=== PATIENT | female | born 1965 | race African-American/Black ===

== ENCOUNTER 2020-05-13 10:37 | Emergency (ER) | payer OTHER, SELFPAY ==
[2020-05-13 10:59] VITALS: BP 148/86; PULSE 87; RESP 18; TEMP 36.9; O2SAT 100
--- NOTE | 2020-05-13 11:06 | ED.DENTAL ---
HPI - Dental/Oral General Chief complaint: Dental/Oral Stated complaint: toothache Source: patient and RN notes reviewed Mode of arrival: ambulatory Limitations: no limitations History of Present Illness HPI Narrative: 54-year-old female with history of stem cell transplant presents with concern for left lower dental pain. Reports she was seen at the dentist yesterday and told she needs a root canal, was given referral. Reports she did not have x-rays done at the dentist yesterday. Reports she was not given an antibiotic at the dentist. She denies facial swelling, headache, foul taste in her mouth. Denies fever or general malaise. MD Complaint: tooth pain Teeth map: 1. Dental pain Related Data Home Medications Medication Instructions Recorded Confirmed albuterol sulfate INHALATION 05/13/20 atorvastatin 05/13/20 docusate sodium [DOK] PO 05/13/20 duloxetine mg PO 05/13/20 ergocalciferol (vitamin D2) 05/13/20 fluticasone propionate INTRANASAL 05/13/20 furosemide 05/13/20 gabapentin 05/13/20 hydralazine 05/13/20 hydrochlorothiazide 05/13/20 lenalidomide [Revlimid] mg PO 05/13/20 losartan 05/13/20 metformin mg 05/13/20 morphine 05/13/20 morphine PO 05/13/20 morphine [MS Contin] PO 05/13/20 omeprazole 05/13/20 ondansetron HCl 05/13/20 prochlorperazine maleate 05/13/20 valacyclovir 05/13/20 varenicline [Chantix Starting ea 05/13/20 Month Box] Allergies Allergy/AdvReac Type Severity Reaction Status Date / Time No Known Allergies Allergy Unverified 10/20/18 13:54 Review of Systems Review of Systems: Narrative: CONSTITUTIONAL: Denies malaise, chills, sweats, or fever. EYES: Denies visual changes, redness, or discharge. ENT: Denies rhinorrhea, congestion, sinus pain, otalgia or sore throat. Reports left lower dental pain CARDIOVASCULAR: Denies chest pain, palpitations, or edema. RESPIRATORY: Denies cough or dyspnea. GASTROINTESTINAL: Denies abdominal pain, nausea, vomiting SKIN: Denies facial redness, swelling MUSCULOSKELETAL: Denies myalgia. NEUROLOGIC: Denies numbness, weakness, or headache. All systems reviewed & are unremarkable except as noted in HPI and below PMFSH Comments At time of signature, agree with nursing past medical, surgical, social and family history. There is no relevant family history pertinent to the presenting complaint Exam Narrative: Exam Narrative: GENERAL: Well-appearing, well-nourished, and in no acute distress. HEAD: Normocephalic, atraumatic. EYES: PERRLA, conjunctivae clear ENT: Nares clear. Mucous membranes moist. Oropharynx without erythema or lesions. Multiple caries, including teeth numbers 18 and 19, no facial swelling noted NECK: Supple. No lymphadenopathy. No jugular venous distension, thyromegaly, or carotid bruits. Carotids were easily palpable bilaterally. CHEST: No respiratory distress. Clear to auscultation. Speaks in full sentences. HEART: Regular rate and rhythm. SKIN: Warm, dry, no rash. NEURO: Alert and oriented x3. PSYCH: Normal mood and affect Course Course Emergency Course: Patient is aware of diagnosis, understands and agrees to treatment plan. Anticipatory guidance given. Patient agrees to follow-up as directed and is aware of reasons to seek care at the emergency department. Portions of this record may have been created with voice recognition software Vital Signs Vital signs: Vital Signs Temperature 98.5 F 05/13/20 10:59 Pulse Rate 87 05/13/20 10:59 Respiratory Rate 18 05/13/20 10:59 Blood Pressure 148/86 H 05/13/20 10:59 Pulse Oximetry 100 05/13/20 10:59 Temperature 98.5 F 05/13/20 10:59 Pulse Rate 87 05/13/20 10:59 Respiratory Rate 18 05/13/20 10:59 Blood Pressure 148/86 H 05/13/20 10:59 Pulse Oximetry 100 05/13/20 10:59 Reviewed. Patient has been instructed to follow up with her primary care provider within the next week regarding her elevated blood pressure today.
== END 2020-05-13 11:20 | disposition home or self-care (01) ==
PROVIDERS: Emergency Provider Nurse Practitioner
DX: K08.89 Other specified disorders of teeth and supporting structures (principal); I10 Essential (primary) hypertension; E78.00 Pure hypercholesterolemia, unspecified; E11.9 Type 2 diabetes mellitus without complications; J44.9 Chronic obstructive pulmonary disease, unspecified; Z79.84 Long term (current) use of oral hypoglycemic drugs
CPT/HCPCS: 99213; G0463

== ENCOUNTER 2021-04-25 14:00 | Outpatient (RCR) | payer OTHER, SELFPAY | END 2021-04-25 23:59 | disposition home or self-care (01) | LOC: ANHAUDIO 14:00 | DX: Z46.1 Encounter for fitting and adjustment of hearing aid (principal) | CPT/HCPCS: 99199; V5241; V5261 ==

== ENCOUNTER 2021-04-25 15:11 | Outpatient (CLI) | payer OTHER, SELFPAY ==
--- NOTE | ~2021-04-25 | MR_ITS ---
EXAMINATION: MR hip RT wo/w con DATE: 04/25/2021 17:06 INDICATION: Multiple myeloma relapse presenting with acute right hip pain. TECHNIQUE: Magnetic resonance imaging (MRI) of the without and with 15 mL Multihance hip was perform ed without intravenous contrast. Sequences included full-field axial PD-weighted FS FSE, T1-weighted FSE and T1-weighted FS FSE , coronal of the pelvis with PD-weighted FS FSE, T2-weighted FSE and T1-we ighted FSE, small field of view of the right hip with axial PD-weighted FS FSE, sagittal PD-weighted FS FSE, coronal T2-weighted FS FSE and coronal PD weighted FS FSE. Additional radial T1-weighted FGR oriented orthogonal to the acetabular rim were obtained for evaluation of the labrum. Postcontrast l arge field of view of the pelvis T1-weighted FS FSE and small [id number] coronal T2-weighted FS FS E and T1-weighted FS FSE were also obtained. COMPARISON: CT dated 06/25/2019 FINDINGS: Bones/labrum/cartilage: Alignment is normal. No fracture or avascular necrosis. Peripheral ring of increased T1 signal consi stent with fatty marrow replacement at the site of a subtle prior lytic lesions in the right iliac wi ng, anterior left iliac spine and left posterior iliac spine. At the latter there is an approximately 9 x 3 mm region of increased T2 signal and enhancement within the lesion. No other bone lesions iden tified. Likely chronic labral degeneration with prominent marginal osteophytes replacing the normal l abral tissue along the superolateral to posterior rim of the right acetabulum which can be seen datin g back to the earlier CT. Assessment of the articular cartilage is limited on a smaller field of view images due to poor [id number] likely related to coil positioning and patient body habitus. Ther e does not however appear to be significant change in the degree of mild nonuniform joint space narro wing seen on the prior CT consistent with mild osteoarthritis at the right hip. Fluid: Symmetric physiologic amount of fluid within both hip joints. No bursitis or other abnormal fluid col lections. Soft tissues: Normal and symmetric muscle bulk and signal in the pelvis and visualized proximal thighs. The iliopso as, gluteal and proximal hamstring tendons are normal. Couple nabothian cysts at the cervix measuring up to 11 mm . Limited evaluation of visceral organs of the pelvis is otherwise unremarkable. No pat hologically enlarged pelvic/inguinal lymphadenopathy. IMPRESSION: 1. No right hip joint effusion, acute osseous abnormality or other etiology identified for reported a cute onset severe right hip pain. 2. Likely involution of the multiple previously seen lytic bone lesions consistent with given history of multiple myeloma which have been replaced by T1 hyperintense fatty marrow. There is a single 9 x 3 mm region of increased T2 signal and enhancement within one of the lesions at the left posterior il iac spine which could represent either minimal residual/recurrent disease or residual vascular cavity . No other enhancing lesions identified. 3. Mild osteoarthritis at the right hip with chronic degeneration of portion of the labrum which have been replaced with prominent acetabular marginal osteophytes. Reviewed, dictated and finalized at location A. IMPRESSION: 1. No right hip joint effusion, acute osseous abnormality or other etiology andrade ntified for reported acute onset severe right hip pain. 2. Likely involution of the multiple previously seen lytic bone lesions consist ent with given history of multiple myeloma which have been replaced by T1 hyper intense fatty marrow. There is a single 9 x 3 mm region of increased T2 signal and enhancement within one of the lesions at the left posterior iliac spine whi ch could represent eithe
[2021-04-25 15:58] LABS: Estimated Glomerular Filt Rate > 60
== END 2021-04-25 15:12 | disposition home or self-care (01) ==
LOC: ANHIMG 15:12
PROVIDERS: Visit Provider Internal Medicine Medical Oncology
DX: C90.02 Multiple myeloma in relapse (principal); M16.11 Unilateral primary osteoarthritis, right hip
CPT/HCPCS: 73723; A9577

== ENCOUNTER 2021-10-31 11:48 | Emergency (ER) | payer OTHER, SELFPAY ==
[2021-10-31] VITALS (36 sets, daily range): BP systolic 140–221; BP diastolic 67–116; PULSE 72–92; RESP 13–26; TEMP 36.7–36.8; O2SAT 95–100
--- NOTE | ~2021-10-31 | CT_ITS ---
EXAMINATION: CT brain wo con EXAM DATE: 10/31/2021 15:14 INDICATION: Headache. Hypertension. TECHNIQUE: Spiral CT of the head was performed without contrast. Axial, coronal and sagittal images were reviewed. The dose-length product (DLP) for this examination was 605.33 mGy-cm. The exposure w as tailored according to patient size, and iterative reconstruction (ASIR) was used as additional dos e reduction technique. Comparison is made to prior examination from 06/25/2019. FINDINGS: There is no acute intraparenchymal hemorrhage. No evidence of intraparenchymal brain mass lesion. No evidence of acute infarction. There is no mass effect or midline shift. The ventricles are normal in size. There are no extra-axial collections. There are no acute calvarial fractures. T he orbits are unremarkable. Soft tissue is unremarkable. Right-sided otomastoiditis fusion. Please exclude otomastoiditis clinically given history provided. T his was aerated on prior scan 2018. IMPRESSION: 1. No acute intracranial findings. 2. Right otomastoiditis opacity, clinical correlation for effusion versus otomastoiditis. Reviewed, dictated and finalized at location A. CHECKER IMPRESSION: 1. No acute intracranial findings. 2. Right otomastoiditis opacity, clinical correlation for effusion versus otom astoiditis.
--- NOTE | 2021-10-31 12:05 | PC.NURSE ---
Charge nurse aware of pts blood pressure and states no EKG is needed.
--- NOTE | 2021-10-31 14:42 | PC.NURSE ---
Charge nurse made aware of pts blood pressure.
--- NOTE | 2021-10-31 15:01 | ECG_ITS ---
Measurements Intervals [place] Rate: 84 P: 64 MA: 161 QRS: 34 QRSD: 93 T: 19 QT: 349 QTc: 415 Interpretive Statements SINUS RHYTHM POSSIBLE LEFT ATRIAL ENLARGEMENT BORDERLINE ECG Electronically Signed On 10-31-2021 20:10:47 [employer] by Pelon Bautista D.O.
--- NOTE | 2021-10-31 15:01 | ED.RECABL ---
HPI - Recheck/Abnormal Lab/Rx General Chief Complaint: Recheck/Abnormal Lab/Rx <Zehra Dia MD - Last Filed: 10/31/21 17:16> Stated Complaint: High BP,BARCENAS <Zehra Dia MD - Last Filed: 10/31/21 17:16> Time Seen by Provider: 10/31/21 15:01 <Zehra Dia MD - Last Filed: 10/31/21 17:16> Source: patient <Zehra Dia MD - Last Filed: 10/31/21 17:16> Mode of arrival: ambulatory <Zehra Dia MD - Last Filed: 10/31/21 17:16> Limitations: no limitations <Zehra Dia MD - Last Filed: 10/31/21 17:16> History of Present Illness HPI narrative: Patient is a 56-year-old female with a history of multiple myeloma in remission, hypertension, hyperlipidemia, arthritis, diabetes, depression, presenting for evaluation of headache pain. Patient states that she has been without her blood pressure medication over the past 4 to 5 days because the pharmacy has not had it. Patient reports headache pain that is consistent with blood pressure headache that she has had in the past. She denies any thunderclap sensation. She reports gradual onset over the past 4 days while she has been without her medications. She denies vision changes, nausea or vomiting. No neck pain. No fever, chills, chest pain or shortness of breath. No focal weakness or numbness. Patient also reports that she has chronic pain and is requesting pain medication for her pain. <Zehra Dia MD - Last Filed: 10/31/21 17:16> Related Data Home Medications: Home Medications Medication Instructions Recorded Confirmed albuterol sulfate INHALATION 05/13/20 atorvastatin 05/13/20 docusate sodium [DOK] PO 05/13/20 duloxetine mg PO 05/13/20 ergocalciferol (vitamin D2) 05/13/20 fluticasone propionate INTRANASAL 05/13/20 furosemide 05/13/20 gabapentin 05/13/20 hydralazine 05/13/20 hydrochlorothiazide 05/13/20 lenalidomide [Revlimid] mg PO 05/13/20 losartan 05/13/20 metformin mg 05/13/20 morphine 05/13/20 morphine PO 05/13/20 morphine [MS Contin] PO 05/13/20 omeprazole 05/13/20 ondansetron HCl 05/13/20 prochlorperazine maleate 05/13/20 valacyclovir 05/13/20 varenicline [Chantix Starting ea 05/13/20 Month Box] <Zehra Dia MD - Last Filed: 10/31/21 17:16> Allergies/Adverse Reactions: Allergies Allergy/AdvReac Type Severity Reaction Status Date / Time No Known Allergies Allergy Verified 10/31/21 15:27 <Zehra Dia MD - Last Filed: 10/31/21 17:16> Review of Systems Review of Systems: CONSTITUTIONAL: Denies fever, chills, or sweats. EYES: Denies visual changes, redness, or discharge. ENT: Denies rhinorrhea, congestion, sore throat, or otalgia. 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 GASTROINTESTINAL: Denies abdominal pain, nausea, vomiting, or diarrhea. GENITOURINARY: Denies dysuria or hematuria. SKIN: Denies rash or itching. MUSCULOSKELETAL: Denies back pain, joint pain, or myalgia. NEUROLOGIC: Reports headache without numbness, or weakness. <Zehra Dia MD - Last Filed: 10/31/21 17:16> [facility] Social History Social History: Social History (Updated 10/31/21 @ 15:53 by Zehra Dia MD) Smoking status: Current every day smoker Tobacco type: cigarettes Alcohol intake: never Substance use type: marijuana Gender identity (if verbalized by the patient): Female <Zehra Dia MD - Last Filed: 10/31/21 17:16> Exam Narrative: GENERAL: Awake, alert, conversant HEAD: Normocephalic, atraumatic. EYES: 2+ PERRLA and EOMI. ENT: Nares clear, no rhinorrhea or epistaxis. Mucous membranes moist. 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 States they are monitoring it. NECK: Supple. CHEST: No respiratory distress, breathing even and non labored HEART: Regular rate, sinus rhythm ABDOMEN:Non dist
--- NOTE | 2021-10-31 15:06 | PC.NURSE ---
Pt off floor to radiology
--- NOTE | 2021-10-31 15:58 | PC.NURSE ---
Called pharmacy, [facility] not communicating medications at this time. Pharmacist to re-enter orders
--- NOTE | 2021-10-31 16:06 | PC.NURSE ---
[facility] still not pulling meds through, pharmacist states IT is aware. Will send medications to ER at this time.
[2021-10-31] MEDS: diphenhydrAMINE HCl CAP 25 MG CAPSULE PO (16:45)
[2021-10-31] MEDS: hydroCHLOROthiazide 25 MG TABLET PO (16:45)
[2021-10-31] MEDS: ACETAMINOPHEN 500 MG TABLET 1000 MG PO (16:46)
[2021-10-31] MEDS: LOSARTAN POTASSIUM 100 MG TABLET PO (16:46)
[2021-10-31] MEDS: KETOROLAC (*BKC) 60 MG/2 ML VIAL 30 MG IM (16:47)
[2021-10-31 16:56] LABS: Add Urine Microscopic? YES; Appearance Urine Cloudy (Clear); Bacteria Urine Trace /hpf; Bilirubin Urine Negative (Negative); Blood Urine 1+ (Negative); Color Urine Yellow (Yellow); Glucose Urine UA 1+ mg/dL (Negative); Ketones Urine Negative (Negative); Leukocyte Esterase Ur Negative LEU/UL (Negative); Mucus Urine Rare /lpf; Nitrate Urine Negative (Negative); Protein Urine 1+ mg/dL (Negative); Specific Grav Ur 1.013 (1.001-1.035); Squamous Epithelial Cell Urine Moderate /hpf (Few); Urobilinogen Urine Negative mg/dL (<2.0); WBC Urine 0-3 /hpf
--- NOTE | 2021-10-31 17:08 | PC.NURSE ---
Dr vasquez aware of BP. OK to start with patient's PO home medications and see response, hold off on IV BP medications at this time.
[2021-10-31 17:19] LABS: Basophils Percent Auto 0.4 % (0.2-1.2); Eosinophils Absolute Auto 0.2 K/mm3 (0-0.3); Eosinophils Percent Auto 1.9 % (0-4.4); Hematocrit 43.1 % (37.0-47.0); Immature Granulocyte Absolute 0.02 K/mm3 (0.00-0.031); Immature Granulocyte Percent A 0.2 % (0-0.5); Lymphocytes Absolute Auto 2.15 K/mm3 (0.9-3.2); Lymphocytes Percent Auto 25.6 % (18.3-44.2); Mean Corpuscular HGB Conc 32.5 g/dl (32-36); Mean Corpuscular Hemoglobin 27.6 pg (26-34); Mean Platelet Volume 10.6 fl (7.4-10.4); Monocytes Absolute Auto 0.7 K/mm3 (0.1-0.6); Monocytes Percent Auto 8.7 % (2.6-8.5); Neutrophils Absolute Auto 5.3 K/mm3 (1.3-6.7); Neutrophils Percent Auto 63.2 % (45.5-73.1); Platelet Count Result 144 k/mm3 (150-375); Red Blood Count 5.07 M/mm3 (4.2-5.4); Red Cell Distribution Width 13.5 % (11.5-14.5); White Blood Count 8.4 K/mm3 (4.5-10.0)
[2021-10-31 17:30] LABS: Alanine Aminotransferase 17 U/L (4-35); Albumin Level 4.3 g/dL (3.5-5.1); Alkaline Phosphatase 92 U/L (38-126); Anion Gap 6 mmol/L (8-16); Aspartate Amino Transferase 21 U/L (14-36); Bilirubin,Total 0.3 mg/dL (0.2-1.3); Blood Urea Nitrogen 9 mg/dL (7-17); Calcium 9.6 mg/dL (8.4-10.2); Carbon Dioxide 28 mmol/L (22-30); Chloride 102 mmol/L (98-107); Estimated CRCL calculation 95 ml/min; Estimated Glomerular Filt Rate > 60; Glucose 178 mg/dL (65-110); Potassium 3.5 mmol/L (3.4-5.0); Sodium 136 mmol/L (137-145)
[2021-10-31 17:42] LABS: Troponin I < 0.012 ng/mL (0.000-0.034)
[2021-10-31] MEDS: hydrALAZINE HCL 20 MG/ML VIAL 10 MG IV PUSH (19:15)
--- NOTE | 2021-10-31 19:18 | PC.NURSE ---
MD aware of BP. Ok to administer hydralazine at this time.
== END 2021-10-31 20:30 | disposition home or self-care (01) ==
PROVIDERS: Emergency Medicine; Emergency Provider Emergency Medicine
DX: I16.9 Hypertensive crisis, unspecified (principal); R51.9 Headache, unspecified; C90.01 Multiple myeloma in remission; I10 Essential (primary) hypertension; E78.5 Hyperlipidemia, unspecified; E11.9 Type 2 diabetes mellitus without complications; M19.90 Unspecified osteoarthritis, unspecified site; Z79.84 Long term (current) use of oral hypoglycemic drugs; F17.210 Nicotine dependence, cigarettes, uncomplicated; H70.91 Unspecified mastoiditis, right ear; R94.31 Abnormal electrocardiogram [ECG] [EKG]
CPT/HCPCS: 36415; 70450; 80053; 81001; 84484; 85025; 93005; 96372; 96374; 99284; A9270; J0360; J1885

== ENCOUNTER 2024-05-07 11:54 | Emergency (ER) | payer OTHER, SELFPAY ==
--- NOTE | 2024-05-07 12:01 | ED.DENTAL ---
HPI - Dental/Oral General Chief complaint: Dental/Oral Stated complaint: Tooth Infection Time Seen by Provider: 05/07/24 12:17 Source: patient Mode of arrival: ambulatory Limitations: no limitations History of Present Illness HPI Narrative: 58-year-old female presents with concern for left upper tooth pain for 1 week. She reports she has been taking aspirin without relief. She reports cheek swelling. She reports she does not have a dentist. She denies fever or trouble swallowing MD Complaint: tooth pain Related Data Home Medications Medication Instructions Recorded Confirmed albuterol sulfate 90 mcg/actuation 2 puff inhalation QID PRN SOB 05/13/20 05/07/24 aerosol inhaler atorvastatin 20 mg tablet 20 mg PO DAILY 05/13/20 05/07/24 duloxetine 30 mg capsule,delayed 30 mg PO DAILY 05/13/20 05/07/24 release ergocalciferol (vitamin D2) 1,250 1,250 mcg PO WEEKLY 05/13/20 05/07/24 mcg (50,000 unit) capsule fluticasone propionate 50 2 spray intranasal DAILY 05/13/20 05/07/24 mcg/actuation nasal spray,suspension furosemide 40 mg tablet 40 mg PO DAILY 05/13/20 05/07/24 gabapentin 300 mg capsule 300 mg PO TID 05/13/20 05/07/24 hydralazine 50 mg tablet 50 mg PO DAILY 05/13/20 05/07/24 hydrochlorothiazide 25 mg tablet 25 mg PO DAILY 05/13/20 05/07/24 lenalidomide 25 mg capsule 25 mg PO DAILY 05/13/20 05/07/24 (Revlimid) losartan 100 mg tablet 100 mg PO DAILY 05/13/20 05/07/24 metformin 500 mg tablet 500 mg PO BID 05/13/20 05/07/24 morphine 30 mg tablet,extended 30 mg PO DAILY 05/13/20 05/07/24 release omeprazole 40 mg capsule,delayed 40 mg PO DAILY 05/13/20 05/07/24 release ondansetron HCl 4 mg tablet 4 mg PO QID PRN Nausea And Vomiting 05/13/20 05/07/24 prochlorperazine maleate 10 mg 10 mg PO DAILY 05/13/20 05/07/24 tablet valacyclovir 500 mg tablet 500 mg PO DAILY 05/13/20 05/07/24 Allergies Allergy/AdvReac Type Severity Reaction Status Date / Time No Known Allergies Allergy Verified 05/07/24 12:01 Review of Systems Review of Systems: CONSTITUTIONAL: Denies malaise, chills, sweats, or fever. EYES: Denies visual changes ENT: Denies rhinorrhea, congestion, sinus pain, otalgia or sore throat. Reports left upper dental pain CARDIOVASCULAR: Denies chest pain, palpitations RESPIRATORY: Denies cough or dyspnea. SKIN: Denies rash or itching. MUSCULOSKELETAL: Denies myalgia. NEUROLOGIC: Denies numbness, weakness, or headache. All systems reviewed & are unremarkable except as noted in HPI and below PMFSH Social History Social History (System 01/25/22 @ 14:12 by Lencho Currie) Smoking status: Current every day smoker Tobacco type: cigarettes Alcohol intake: never Substance use type: marijuana Gender identity (if verbalized by the patient): Female Comments At time of signature, agree with nursing past medical, surgical, social and family history. There is no relevant family history pertinent to the presenting complaint Exam Narrative: GENERAL: Well-appearing, well-nourished, and in no acute distress. HEAD: Normocephalic, atraumatic. EYES: PERRLA, sclera clear ENT: Nares clear, turbinates pink, no rhinorrhea or epistaxis. Mucous membranes moist. TM pearly perez with sharp light reflex bilaterally; no tragal tenderness. Oropharynx without erythema or lesions. Tonsils not enlarged and without exudate. Missing teeth, broken teeth, caries NECK: Supple. No lymphadenopathy. CHEST: No respiratory distress. Speaks in full sentences. HEART: Regular rate and rhythm. SKIN: Warm, dry, no visible rash. NEURO: Alert and oriented x3. PSYCH: Normal mood and affect Course Course Emergency Course: Patient is aware of diagnosis, understands and agrees to treatment plan. Anticipatory guidance given. Patient agrees to follow-up as directed and is aware of reasons to seek care at the emergency department. Portions of this record may have been created with voice recognition software Level of
[2024-05-07 12:05] VITALS: BP 154/91; PULSE 91; RESP 20; TEMP 37.2; O2SAT 98
[2024-05-07 12:08] VITALS: BP 154/91; PULSE 91; RESP 20; TEMP 37.2; O2SAT 98
== END 2024-05-07 12:30 | disposition home or self-care (01) ==
PROVIDERS: Emergency Provider Nurse Practitioner
DX: K08.89 Other specified disorders of teeth and supporting structures (principal); F17.210 Nicotine dependence, cigarettes, uncomplicated; F12.90 Cannabis use, unspecified, uncomplicated
CPT/HCPCS: 99213; G0463

== ENCOUNTER 2024-08-17 10:45 | Emergency (ER) | payer OTHER, SELFPAY ==
--- NOTE | ~2024-08-17 | XR_ITS ---
EXAMINATION: [id number] DATE: 08/17/2024 11:25 INDICATION: Left knee pain TECHNIQUE: AP and lateral views of the left knee were obtained. COMPARISON: None. FINDINGS: Alignment is normal. No fracture. Tricompartmental osteoarthritis at the left knee with moderate join t space narrowing in the medial and patellofemoral compartments and moderate size marginal ossified s mall 3 compartments. There are small central subchondral osteophytes at the medial compartment. No le ft knee joint effusion. Mild subcutaneous edema about the knee. IMPRESSION: 1. No left knee joint effusion or acute osseous abnormality. 2. Tricompartmental osteoarthritis with at least moderate severity in the medial and patellofemoral c ompartments although severity of joint space measuring can be underestimated on nonweightbearing imag ing. Reviewed, dictated and finalized at location B. IMPRESSION: 1. No left knee joint effusion or acute osseous abnormality. 2. Tricompartmental osteoarthritis with at least moderate severity in the media l and patellofemoral compartments although severity of joint space measuring ca n be underestimated on nonweightbearing imaging.
[2024-08-17 10:53] VITALS: BP 152/89; PULSE 80; RESP 16; TEMP 37.1; O2SAT 98
--- NOTE | 2024-08-17 11:12 | ED.EXTPRO ---
HPI - Extremity Problem General Chief complaint: Extremity Problem,Nontraumatic Stated complaint: Left Knee Pain Time Seen by Provider: 08/17/24 11:00 Source: patient Mode of arrival: ambulatory Limitations: no limitations History of Present Illness HPI Narrative: Maria E is a 59-year-old female patient presenting to the clinic today with complaints of left knee pain that started this morning when she awoke. States no known injury. Is having pain anteriorly posterior with pain rating down her leg. History of multiple myeloma. She is concerned that she may have gout. Related Data Home Medications Medication Instructions Recorded Confirmed albuterol sulfate 90 mcg/actuation 2 puff inhalation QID PRN SOB 05/13/20 08/17/24 aerosol inhaler atorvastatin 20 mg tablet 20 mg PO DAILY 05/13/20 08/17/24 duloxetine 30 mg capsule,delayed 30 mg PO DAILY 05/13/20 08/17/24 release ergocalciferol (vitamin D2) 1,250 1,250 mcg PO WEEKLY 05/13/20 08/17/24 mcg (50,000 unit) capsule fluticasone propionate 50 2 spray intranasal DAILY 05/13/20 08/17/24 mcg/actuation nasal spray,suspension furosemide 40 mg tablet 40 mg PO DAILY 05/13/20 08/17/24 gabapentin 300 mg capsule 300 mg PO TID 05/13/20 08/17/24 hydralazine 50 mg tablet 50 mg PO DAILY 05/13/20 08/17/24 hydrochlorothiazide 25 mg tablet 25 mg PO DAILY 05/13/20 08/17/24 lenalidomide 25 mg capsule 25 mg PO DAILY 05/13/20 08/17/24 (Revlimid) losartan 100 mg tablet 100 mg PO DAILY 05/13/20 08/17/24 metformin 500 mg tablet 500 mg PO BID 05/13/20 08/17/24 morphine 30 mg tablet,extended 30 mg PO DAILY 05/13/20 08/17/24 release omeprazole 40 mg capsule,delayed 40 mg PO DAILY 05/13/20 08/17/24 release ondansetron HCl 4 mg tablet 4 mg PO QID PRN Nausea And Vomiting 05/13/20 08/17/24 prochlorperazine maleate 10 mg 10 mg PO DAILY 05/13/20 08/17/24 tablet valacyclovir 500 mg tablet 500 mg PO DAILY 05/13/20 08/17/24 Allergies Allergy/AdvReac Type Severity Reaction Status Date / Time No Known Allergies Allergy Verified 08/17/24 10:55 Review of Systems Review of Systems: Pertinent positives per HPI. Patient denies any fever, chills, rash, headache, visual changes, dizziness, cough, runny nose, sore throat, shortness of breath, chest pain, palpitations, nausea, vomiting, diarrhea, constipation, abdominal pain, or any urinary issues. PMFSH Social History Social History Smoking status: Current every day smoker Tobacco type: cigarettes Alcohol intake: never Substance use type: marijuana Gender identity (if verbalized by the patient): Female Comments At the time of my signature, I reviewed and agree with the nursing past medical, surgical, social, and family history. There is no relevant family history pertinent to the patient complaint. Exam Narrative: General: Well-developed, well nourished, in no apparent distress Head: Normocephalic, atraumatic. Cardio: Regular rate and rhythm, s1 and s2 normal, no murmur appreciated. Resp: Clear to auscultation bilaterally, no rhonchi, rales, wheezing or rubs. Musculoskeletal: No deformity, tender to palpation over the anterior and posterior knee with pain radiating down her leg, grossly normal range of motion, muscle strength strong and equal, peripheral pulse strong, no edema, no cyanosis, normal gait and station Course Course Emergency Course: Portions of this record may have been created with voice recognition software. Level of Care: Express Care Visit Vital Signs Vital signs: Vital Signs Temperature 37.1 C 08/17/24 10:53 Pulse Rate 80 08/17/24 10:53 Respiratory Rate 16 08/17/24 10:53 Blood Pressure 152/89 H 08/17/24 10:53 Pulse Oximetry 98 08/17/24 10:53 Oxygen Delivery Room Air 08/17/24 10:53 Temperature 37.1 C 08/17/24 10:53 Pulse Rate 80 08/17/24 10:53 Respiratory Rate 16 08/17/24 10:53 Blood Pressur
== END 2024-08-17 11:44 | disposition home or self-care (01) ==
PROVIDERS: Emergency Provider Nurse Practitioner Family
DX: M17.12 Unilateral primary osteoarthritis, left knee (principal); F17.210 Nicotine dependence, cigarettes, uncomplicated; F12.90 Cannabis use, unspecified, uncomplicated; C90.01 Multiple myeloma in remission; I11.0 Hypertensive heart disease with heart failure; I50.9 Heart failure, unspecified; E78.00 Pure hypercholesterolemia, unspecified; J44.9 Chronic obstructive pulmonary disease, unspecified; K21.9 Gastro-esophageal reflux disease without esophagitis; E11.9 Type 2 diabetes mellitus without complications; Z79.84 Long term (current) use of oral hypoglycemic drugs
CPT/HCPCS: 73560; 99213; G0463

== ENCOUNTER 2025-04-19 18:12 | Emergency (ER) | payer OTHER, SELFPAY ==
--- NOTE | 2025-04-19 18:27 | ED_ITS ---
HPI - Recheck/Abnormal Lab/Rx General Chief Complaint: Unspecified Stated Complaint: Want to check blood pressure Time Seen by Provider: 04/19/25 18:28 Source: patient Mode of arrival: ambulatory Limitations: no limitations History of Present Illness HPI narrative: Maria E is a 59-year-old female patient presenting to the clinic today with complaints of blood pressure. She is requesting her blood pressure to be checked in the clinic today. She is reporting some dizziness and headache. Went to her PCP today and was prescribed a new blood pressure medication however she was not able to pick it up yet at this time. Denies any chest pain or shortness of breath. Denies any visual changes. Related Data Home Medications ?Medication ?Instructions ?Recorded ?Confirmed ?Last Taken ?Type albuterol sulfate 90 mcg/actuation 2 puff inhalation QID PRN SOB 05/13/20 08/17/24 Unknown History aerosol inhaler atorvastatin 20 mg tablet 20 mg PO DAILY 05/13/20 08/17/24 Unknown History duloxetine 30 mg capsule,delayed 30 mg PO DAILY 05/13/20 08/17/24 Unknown History release ergocalciferol (vitamin D2) 1,250 1,250 mcg PO WEEKLY 05/13/20 08/17/24 Unknown History mcg (50,000 unit) capsule fluticasone propionate 50 2 spray intranasal DAILY 05/13/20 08/17/24 Unknown History mcg/actuation nasal spray,suspension furosemide 40 mg tablet 40 mg PO DAILY 05/13/20 08/17/24 Unknown History gabapentin 300 mg capsule 300 mg PO TID 05/13/20 08/17/24 Unknown History hydralazine 50 mg tablet 50 mg PO DAILY 05/13/20 08/17/24 Unknown History hydrochlorothiazide 25 mg tablet 25 mg PO DAILY 05/13/20 08/17/24 Unknown History lenalidomide 25 mg capsule 25 mg PO DAILY 05/13/20 08/17/24 Unknown History (Revlimid) losartan 100 mg tablet 100 mg PO DAILY 05/13/20 08/17/24 Unknown History metformin 500 mg tablet 500 mg PO BID 05/13/20 08/17/24 Unknown History morphine 30 mg tablet,extended 30 mg PO DAILY 05/13/20 08/17/24 Unknown History release omeprazole 40 mg capsule,delayed 40 mg PO DAILY 05/13/20 08/17/24 Unknown History release ondansetron HCl 4 mg tablet 4 mg PO QID PRN Nausea And Vomiting 05/13/20 08/17/24 Unknown History prochlorperazine maleate 10 mg 10 mg PO DAILY 05/13/20 08/17/24 Unknown History tablet valacyclovir 500 mg tablet 500 mg PO DAILY 05/13/20 08/17/24 Unknown History Allergies Allergy/AdvReac Type Severity Reaction Status Date / Time No Known Allergies Allergy Verified 04/19/25 19:08 Review of Systems Review of Systems: Pertinent positives per HPI. Patient denies any fever, chills, rash, visual changes, dizziness, cough, shortness of breath, chest pain, palpitations, nausea, vomiting, diarrhea, constipation, abdominal pain, or any urinary issues. [facility] Social History Social History Smoking status: Current every day smoker Tobacco type: cigarettes Alcohol intake: never Substance use type: marijuana Gender identity (if verbalized by the patient): Female Comments At the time of my signature, I reviewed and agree with the nursing past medical, surgical, social, and family history. There is no relevant family history pertinent to the patient complaint. Exam Narrative: General: Well-developed, morbidly obese, in no apparent distress Head: Normocephalic, atraumatic. Cardio: Regular rate and rhythm, s1 and s2 normal, no murmur appreciated. Resp: Clear to auscultation bilaterally, no rhonchi, rales, wheezing or rubs. Extremities: No deformity, no edema, no cyanosis, capillary refill less than 2 seconds, peripheral pulses palpable and strong. Integumentary: [place], warm, and dry, intact without lesion, no rashes. Course Course Emergency Course: Portions of this record may have been created with voice recognition software. Level of Care: Express Care Visit Vital Signs Vital signs: Vital Signs Temperature 37.4 C 04/19/25 18:36 Pulse Rate 119 H 04/19/25 18:36 Respiratory Rate 18 04/19/25 18:36 Blood Pressure 175/113 H 04/19/25 18:36 Pulse Oximetry 95 04/19/25 18:36 Oxygen Delivery Room Air 04/19/25 18:36 Temperature 37.4 C 04/19/25 18:36 Pulse Rate 119 H 04/19/25 18:36 Respiratory Rate 18 04/19/25 18:36 Blood Pressure 180/120 H 04/19/25 19:00 Pulse Oximetry 95 04/19/25 18:36 Oxygen Delivery Room Air 04/19/25 18:36 Vital signs reviewed Transfer Transfered to: [facility] Transportation: Other (Private car) Transfer rationale: Hypertension urgency/UTI Accepting physician: Dr. Suarez Transfer comments: Report was given to Ally charge nurse. Patient declined EMS MDM - Recheck/Abnormal Lab/Rx MDM Narrative Medical decision making narrative: At the time of visit patient is resting comfortably on the exam table. Patient appears to be nontoxic. Labs: Urinalysis positive for leukocytes, nitrates, and 1+ protein. Plan: I suspect patient has hypertension urgency as her blood pressure is 180/120 in the clinic today and she is complaining of dizziness and headache. She does have a UTIs well. Recommend transfer to the ER for further evaluation for hypertension urgency. Patient would like to go to [facility] in [place], [place]. Report was called to Ally NORRIS and accepts patient for transfer. Patient declined EMS. Differential Diagnosis Differential diagnosis: Likely other (Encounter for blood pressure check, hypertension urgency, UTI) Lab Data Labs: Lab Results 04/19/25 Range/Units 19:00 POC Urine Color [place] POC Urine Clarity Clots POC Urine pH 6.0 POC Ur Specif [place] 1.025 POC Urine Protein 1+ (Negative) POC Ur Glucose (UA) Negative (Negative) POC Urine Ketones Negative (Negative) POC Urine Blood Negative (Negative) POC Urine Nitrite Positive (Negative) POC Urine Bilirubin Negative (Negative) POC Urine Urobilinogen 0.2 POC U Leukocyte Esteras Trace (Negative) Discharge Plan Discharge Clinical Impression: Hypertensive urgency UTI (urinary tract infection) Qualifiers: Urinary tract infection type: acute cystitis Hematuria presence: without hematuria Qualified Code(s): N30.00 - Acute cystitis without hematuria Patient Disposition: Home Condition: Stable Patient Language: Portuguese Prescriptions: No Action furosemide 40 mg tablet 40 mg PO DAILY metformin 500 mg tablet 500 mg PO BID atorvastatin 20 mg tablet 20 mg PO DAILY ondansetron HCl 4 mg tablet 4 mg PO QID PRN (Reason: Nausea And Vomiting) prochlorperazine maleate 10 mg tablet 10 mg PO DAILY valacyclovir 500 mg tablet 500 mg PO DAILY morphine 30 mg tablet extended release 30 mg PO DAILY omeprazole 40 mg capsule,delayed release(DR/EC) 40 mg PO DAILY gabapentin 300 mg capsule 300 mg PO TID hydralazine 50 mg tablet 50 mg PO DAILY hydrochlorothiazide 25 mg tablet 25 mg PO DAILY ergocalciferol (vitamin D2) 1,250 mcg (50,000 unit) capsule 1,250 mcg PO WEEKLY albuterol sulfate 90 mcg/actuation HFA aerosol inhaler 2 puff INHALATION QID PRN (Reason: SOB) losartan 100 mg tablet 100 mg PO DAILY fluticasone propionate 50 mcg/actuation spray,suspension 2 spray INTRANASAL DAILY duloxetine 30 mg capsule,delayed release(DR/EC) 30 mg PO DAILY lenalidomide [Revlimid] 25 mg capsule 25 mg PO DAILY Follow-up/Referrals: PHYSICIAN NOT ON STAFF,NONSTAFF [Primary Care Provider] - Time of Disposition: 19:17 Quality NIHSS Nursing Documentation ED NIHSS nursing documentation: reviewed/agree
[2025-04-19 18:36] VITALS: BP 175/113; PULSE 119; RESP 18; TEMP 37.4; O2SAT 95
[2025-04-19 19:00] VITALS: BP 180/120
[2025-04-19 19:05] LABS: EDUAAPPEAR Clots; EDUABILI Negative (Negative); EDUABLOOD Negative (Negative); EDUACOLOR1 Amber; EDUAGLUCOSE Negative (Negative); EDUAKETONE Negative (Negative); EDUALEUKO Trace (Negative); EDUANITRATE Positive (Negative); EDUAPROTEIN 1+ (Negative); EDUASPGRAVITY 1.025; EDUAUROBILI 0.2
== END 2025-04-19 19:21 | disposition home or self-care (01) ==
PROVIDERS: Emergency Provider Nurse Practitioner Family
DX: I16.0 Hypertensive urgency (principal); N30.00 Acute cystitis without hematuria; F17.210 Nicotine dependence, cigarettes, uncomplicated
CPT/HCPCS: 81003; 99212; G0463

== ENCOUNTER 2025-07-13 14:57 | Emergency (ER) | payer OTHER, SELFPAY ==
--- OUTSIDE RECORDS SUMMARY | 2025-07-13 14:58 | XMS_ITS | Encounter Summary ---
Author Organization [facility] Address [address] [place] [address] Phone Care Team Providers Care Cotton Farmworker Name Role Phone Yaneth Gage APRN, CNP Primary Care Provid er Davi Sesay DO Unavailable [phone] Saira Tejada MD Unavailable [phone] Encounter Details Date Type Department Care Team (Late st Contact Info) Description 12/04/2020 Telephone [facility] [address] [place] [address] Davi Sesay, DO [address] [place] [address] Social History Tobacco Use Types Packs/Day Years Used Date Smoking Tobacco: Every Day Cigarettes 0.5 49 Started: 07/12/1976 Smokeless Tobacco: Never Alcohol Use Standard Drinks/Week Comments Yes 0 (1 standard drink = 0.6 oz pur e alcohol) AUDIT-C Answer Date Recorded Frequency of Alcohol Consumption Monthly or less 07/12/2019 Average Number of Drinks 1 or 2 019 Frequency of Binge Drinking Never 07/01 PHQ-2 Answer Date Recorded PHQ-2 Score 0 07/28/2020 Sexually Active Control Partners Comments Yes Male Comments Unknown Sex and Gender Information Value Date Recorded Sex Assigned at Not on file Legal Sex Female 9:35 AM CDT Gender Identity Not on file Sexual Orientation Not on file documented as of this encounter Miscellaneous Notes * Telephone Encounter - Tanya De Jesus - 12/04/2020 3:18 PM CST PT FORGOT ABOUT APPT BUT SHE IS RESCHEDULED. CTOR CLINICAL OPERATIONS documented in this encounter Plan of Treatment Upcoming Encounters Date Type Department Care Team (Late st Contact Info) Description 07/26/2025 10:35 AM CDT Lab [facility] [address] [address] Lab, [facility]c [facility] 07/26/2025 10:45 AM CDT Office Visit [facility] [address] [phone] Davi Sesay DO [address] [place] [phone] documented as of this encounter Visit Diagnoses Not on filedocumented in this encounter Additional Health Concerns Assessment Noted Time PHQ-9 Depression Total Score: 0 10/30/20 20 2:56 PM DIRECTOR CLINICAL OPERATIONS documented as of this encounter Care Teams Cotton Farmworker Relationship Specialty Start Date End Date Yaneth Gage APRN, CNP [address] [place] [address] PCP - General Certified Nurse Practitioner 06/30/19 Davi Sesay DO [address] [place] [address] Consulting Physician Oncology 07/05/19 Saira Tejada MD [address] [place] [address] Consulting Physician 09/06/19 documented as of this encounter
--- OUTSIDE RECORDS SUMMARY | 2025-07-13 14:58 | XMS_ITS | Encounter Summary ---
Author Organization [facility] Address [address] [place] [address] Phone Care Team Providers Care Fine Chemicals Operator Name Role Phone Yaneth Gage APRN, CNP Primary Care Provid er Davi Sesay DO Unavailable [phone] Saira Tejada MD Unavailable [phone] Reason for Visit * Reason Comments Medication Refill Encounter Details Date Type Department Care Team (Late st Contact Info) Description 09/21/2020 Refill [facility] [address] [place] [address] Davi Sesay, DO [address] [place] [address] Medication Refill Social History Tobacco Use Types Packs/Day Years [...] on file documented as of this encounter Plan of Treatment Upcoming Encounters Date Type Department Care Team (Late st Contact Info) Description 07/26/2025 10:35 AM CDT Lab [facility] [address] [phone] Lab, Cc [facility] 07/26/2025 10:45 AM CDT Office Visit [facility] [address] [phone] Davi Sesay DO [address] [place] [phone] documented as of this encounter Visit Diagnoses Diagnosis Multiple myeloma in relapse (HCC) Multiple myeloma, in relapse documented in this encounter Additional Health Concerns Assessment Noted Time PHQ-9 Depression Total Score: 0 07/28/20 10:29 AM CDT documented as of this encounter Care Teams Fine Chemicals Operator Relationship Specialty Start Date End Date Yaneth Gage, DAMARIS, TAKE UP SUPERVISOR [address] [place] [address] PCP - General Certified Nurse Practitioner 06/30/19 Davi Sesay DO [address] [place] [address] Consulting Physician Oncology 07/05/19 Saira Tejada MD [address] [place] [address] Consulting Physician 09/06/19 documented as of this encounter
--- OUTSIDE RECORDS SUMMARY | 2025-07-13 14:58 | XMS_ITS ---
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 Benign intracranial hypertension 02/07/2022 Chronic low back pain 02/07/2022 Disorder of vision 02/07/2022 Hip pain 02/07/2022 Hypertension 02/07/2022 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 No medications schedul ed. Past Treatment and Therapy Plans ONCOLOGY SUPPORTIVE CARE Plan Name Start Date Discontinue Date Treatment Medications Discontinue Reason Plan Provider Cycles SUPPORT - ZOMETA - [facility] 9 01/25/2021 No medications scheduled. Plan Clean Up Davi Sesay, DO Treatment not started ONCOLOGY TREATMENT Plan Name Start Date Discontinue Date Treatment Medications Discontinue Reason Plan Provider Cycles MULTIPLE MYELOMA - VELCADE + DEXAMETHASONE + REVLIMID - [facility] 019 05/19/2020 bortezomib (VELCADE) injectionlenalidomide 25 mg capsule (REVLIMID) Therapy Complete Davi Sesay DO 3 (4 of 9 cycles) started ORAL CHEMO TREATMENT Plan Name Start Date Discontinue Date Treatment Medications Discontinue Reason Plan Provider Cycles MYELOMA - REVLIMID MAINTENANCE - [facility] 06/02/2020 03/05/2022 lenalidomide (REVLIMID) Plan Clean Up Davi Sesay, DO Treatment not started
--- OUTSIDE RECORDS SUMMARY | 2025-07-13 14:58 | XMS_ITS | Encounter Summary ---
Author Organization [facility] Address [address] [place] [address] Phone Care Team Providers Care Marine Structural Designer Name Role Phone Yaneth Gage APRN, CNP Primary Care Provid er Davi Sesay DO Unavailable [phone] Saira Tejada MD Unavailable [phone] Encounter Details Date Type Department Care Team (Late st Contact Info) Description 12/06/2022 Telephone [facility] [place] [address] [place] [address] Davi Sesay, DO [address] [place] [address] Social History Tobacco Use Types [...] Drinking Never 07/01 PHQ-2 Answer Date Recorded Total Score - Questions 1-9 0 08/12/2021 Sexually Active Control Partners Comments Yes Male Comments No Sex and Gender Information Value Date Recorded Sex Assigned at Not on file Legal Sex Female 9:35 AM CDT Gender Identity Not on file Sexual Orientation Not on file documented as of this encounter Miscellaneous Notes * Telephone Encounter - Rachell Sandoval - 12/06/2022 11:54 AM CST PT HAS NO VOICE MAIL SET UP. SENDING MISSED APPT LETTER UGATOR HELPER documented in this encounter Plan of Treatment Upcoming Encounters Date Type Department Care Team (Late st Contact Info) Description 07/26/2025 10:35 AM CDT Lab [facility] [address] [phone] Lab, [facility]c [facility] 07/26/2025 10:45 AM CDT Office Visit [facility] [address] [phone] Davi Sesay DO [address] [place] [phone] documented as of this encounter Visit Diagnoses Not on filedocumented in this encounter Additional Health Concerns Assessment Noted Time PHQ-9 Depression Total Score: 18 022 8:49 AM CORRUGATOR HELPER documented as of this encounter Care Teams Marine Structural Designer Relationship Specialty Start Date End Date Yaneth Gage APRN, PIERCE [address] [place] [address] PCP - General Certified Nurse Practitioner 06/30/19 Davi Sesay DO [address] [place] [address] Consulting Physician Oncology 07/05/19 Saira Tejada MD [address] [place] [address] Consulting Physician 09/06/19 documented as of this encounter
--- OUTSIDE RECORDS SUMMARY | 2025-07-13 14:58 | XMS_ITS | Encounter Summary ---
Author Organization [facility] Address [address] [place] [address] Phone Care Team Providers Care Educational Technician Name Role Phone Yaneth Gage APRN, CNP Primary Care Provid er Davi Sesay DO Unavailable [phone] Saira Tejada MD Unavailable [phone] Encounter Details Date Type Department Care Team (Late st Contact Info) Description 03/16/2025 Telephone [facility] [address] [place] [address] Davi Sesay, DO [address] [place] [address] Social History Tobacco Use Types [...] Date Recorded Total Score - Questions 1-9 19 10/0 12/2023 Sexually Active Control Partners Comments Yes Male Comments No Sex and Gender Information Value Date Recorded Sex Assigned at Not on file Legal Sex Female 9:35 AM CDT Gender Identity Not on file Sexual Orientation Not on file documented as of this encounter Miscellaneous Notes * Telephone Encounter - Devika Barber - 03/16/2025 4:19 PM CDT Please transcribe office note from 03/11/25, need for referral. Thank you documented in this encounter Plan of Treatment Upcoming Encounters Date Type Department Care Team (Late st Contact Info) Description 07/26/2025 10:35 AM CDT Lab [facility] [address] [phone] Lab, [facility] 07/26/2025 10:45 AM CDT Office Visit [facility] [address] [phone] Davi Sesay DO [address] [place] [phone] documented as of this encounter Visit Diagnoses Not on filedocumented in this encounter Additional Health Concerns Assessment Noted Time PHQ-9 Depression Total Score: 19 024 2:33 PM CDT documented as of this encounter Care Teams Educational Technician Relationship Specialty Start Date End Date Yaneth Gage APRN, PIERCE [address] [place] [address] PCP - General Certified Nurse Practitioner 06/30/19 Davi Sesay DO [address] [place] [address] Consulting Physician Oncology 07/05/19 Saira Tejada MD [address] [place] [address] Consulting Physician 09/06/19 documented as of this encounter
--- OUTSIDE RECORDS SUMMARY | 2025-07-13 14:58 | XMS_ITS | Clinical Summary ---
Author Organization [facility] Address [address] [place] [address] Phone Care Team Providers Care Carpenters Helper Name Role Phone Yaneth Gage APRN, CNP Primary Care Provid er Davi Sesay DO Unavailable [phone] Saira Tejada MD Unavailable [phone] Allergies Active Allergy Reactions Criticality Noted Date Comments Meloxicam Nausea Medium 01/11/2022 Tramadol Itching Medium 01/11/2022 Medications albuterol 108 (90 Base) MCG/ACT Aerosol Solution take 2 Puffs by inhalation 2 times daily. 06/01/20 19 Active atorvastatin (LIPITOR) 20 MG Tablet Take 20 mg by mouth daily. 05/31/20 19 Active fluticasone (FLONASE) 50 MCG/ACT Suspension 2 Sprays by Nasal route daily. 6 06/01/20 19 Active hydrALAZINE 50 MG Tablet Take 50 mg by mouth 2 times daily. 0 06/29/20 19 Active losartan (COZAAR) 100 MG Tablet Take 100 mg by mouth daily. 2 06/29/20 19 Active metFORMIN (GLUCOPHAGE) 500 MG Tablet Take 500 mg by mouth 2 times daily. 05/31/20 19 Active furosemide (LASIX) 40 MG Tablet Take 40 mg by mouth. 11/02/20 19 Active hydroCHLOROthiaz andrade 25 MG Tablet Take 25 mg by mouth. 11/03/20 19 Active prochlorperazine (COMPAZINE) 10 MG Tablet 09/27/20 19 Active ergocalciferol (VITAMIN D) 42858 UNIT Capsule Take 50,000 Units by mouth. 12/08/19 20 Active FEROSUL 325 (65 Fe) MG Tablet 05/13/20 20 Active FaBB 2.2-25-1 MG Tablet TK 1 T PO QD 09/28/20 20 Active lisinopril-hydro CHLOROthiazide (PRINZIDE, ZESTORETIC) 20-25 MG Tablet Acti ve hydrOXYzine (VISTARIL) 25 MG Capsule 04/25/20 22 Active gabapentin (NEURONTIN) 300 MG Capsule TAKE 2 CAPSULES BY MOUTH THREE TIMES DAILY. 180 Capsule 2 06/12/20 22 Active ondansetron (ZOFRAN) 4 MG Tablet TAKE 1 TABLET BY MOUTH DAILY NEEDED FOR NAUSEA 90 Tablet 3 07/19/20 22 Active metoprolol tartrate (LOPRESSOR) 25 MG Tablet metoprolol tartrate 25 mg tablet TAKE 1 TABLET BY MOUTH TWICE DAILY 08/23/20 22 Active aspirin 81 MG Chewable Tablet aspirin 81 mg chewable tablet CHEW AND SWALLOW 1 TABLET BY MOUTH EVERY DAY 08/23/20 22 Active nitroGLYCERIN (NITROSTAT) 0.4 MG SL Tablet 08/23/20 22 Active traZODone (DESYREL) 100 MG Tablet TAKE 1 TABLET BY MOUTH EVERY DAY AT BEDTIME 07/30/20 23 Active omeprazole (PriLOSEC) 20 MG CAPSULE DELAYED RELEASEIndicatio ns:Gastroesophag eal reflux disease, unspecified whether esophagitis present Take 1 Capsule by mouth daily. 90 Capsule 3 11/07/20 23 Active polyethylene glycol (GLYCOLAX, MIRALAX) 17 g PackIndications: Constipation, unspecified constipation type DISSOLVE 1 PACKET( 17 GRAMS) IN 4 TO 8 OUNCES OF LIQUID DAILY 30 Packet 3 12/25/19 24 Active hydrOXYzine (ATARAX) 25 MG Tablet hydroxyzine HCl 25 mg tablet TAKE 1 TABLET BY MOUTH TWICE A DAY NEEDED Active morphine (MS CONTIN) 30 MG Tablet Controlled ReleaseIndicatio ns:Multiple myeloma, remission status unspecified (HCC),Iron deficiency anemia due to chronic blood loss,Lytic lesion of bone on x-ray Take 1 Tablet by mouth every 12 hours. 60 Tablet 06/13/20 25 Active Trulicity 1.5 MG/0.5ML Solution Auto-injector Inject 1.5 mg every week by subcutaneous route in the morning for 30 days, for diabetes shot. 05/11/20 25 Active morphine IMMEDIATE RELEASE (MS IR) 15 MG TabletIndication s:Multiple myeloma, remission status unspecified (HCC) Take 1 Tablet by mouth every 6 hours as needed for Moderate or more severe pain. 84 Tablet 06/30/20 25 Active oxyCODONE (ROXICODONE) 5 MG TabletIndication s:Multiple myeloma, remission status unspecified (HCC) Take 1 Tablet by mouth every 4 hours as needed for Moderate or more severe pain. 60 Tablet 07/08/20 25 Active Trulicity 0.75 MG/0.5ML Solution Auto-injector INJECT 0.75 MG UNDER THE SKIN ONCE WEEKLY IN THE MORNING FOR DIABETES AND WEIGHT LOSS 025 Discontin ued(Med List Clean Up) morphine IMMEDIATE RELEASE (MS IR) 15 MG TabletIndication s:Multiple myeloma, remission status unspecified (HCC) Take 1 Tablet by mouth every 6 hours as needed for Moderate or more severe pain. 84 Tablet 06/13/20 25 025 Discontin ued(Reord er) morphine IMMEDIATE RELEASE (MS IR) 15 MG TabletIndication s:Multiple myeloma, remission status unspecified (HCC) Take 1 Tablet by mouth every 6 hours as needed for Moderate or more severe pain. 84 Tablet 06/28/20 25 025 Discontin ued(Reord er) Active Problems Problem Noted Date Diagnosed Date [...] Lytic lesion of bone on x-ray 07/12/2019 Encounters Date Type Department Care Team Description 07/13/2025 Telephone [facility] [address] [phone] Davi Sesay, DO appeal decision 07/07/2025 Refill [facility] [address] [phone] Davi Sesay, DO 06/28/2025 10:45 AM CDT Office Visit [facility] [address] [phone] Rachell Brooks, CERTIFIED SURGICAL TECH/FIRST ASSISTANT, SPA MANAGER Multiple myeloma, remission status unspecified (HCC) (Primary Dx); Pain in thoracic spine 06/28/2025 10:35 AM CDT Lab [facility] [address] [phone] Lab, [facility] Multiple myeloma, remission status unspecified (HCC); Lytic lesion of bone on x-ray; Abnormal positron emission tomography (PET) scan 06/28/2025 Refill [facility] [address] [phone] Davi Sesay, DO Medication Refill 06/28/2025 Travel 06/13/2025 Refill [facility] [address] [phone] Davi Sesay, DO Medication Refill 05/13/2025 10:30 AM CDT Office Visit [facility] [address] [phone] Davi Sesay, DO Multiple myeloma, remission status unspecified (HCC) (Primary Dx) 05/13/2025 Travel 05/09/2025 Telephone [facility] [address] [phone] Davi Sesay, DO Canopy Call / Updated Mamogram orders 05/02/2025 Refill [facility] [address] [phone] Davi Sesay DO 04/12/2025 Telephone [facility] [address] [phone] Davi Sesay, DO from Last 3 Months Immunizations Immunization Administration Dates Next Due Covid-19, Mrna, Lnp-s, Pf, 3 0 Mcg/0.3 Ml Dose ([employer]) 07/17/2021 DTAP VACCINE 12/12/2020,09/08/2020,07/07/2020 HEP A/HEP B Combined Vaccine 02/13/2021,09/08/20 20,07/07/2020 Hepatitis A And Hepatitis B Vaccine 02/13/2021 Hepatitis B Vaccine 03/01/2022 Influenza Vaccine 09/20/2019 Influenza, High-dose, Quadrivalent 09/08/2020 Influenza, Injectable, Quadrivalent 11/12/2023 MMR Vaccine 03/01/2022 Meningococcal MCV4O 09/08/2020,07/07/2020 Pneumococcal PCV, Unspecifie d Formulation 02/13/2021,12/12/2020,09/08/2020,07/07 Polio Vaccine,unspecified Formulation 12/12/2020 ,09/08/2020,07/07/2020 Zoster Vaccine Recombinant 12/12/2020,05/17/2020 Family History Medical History Relation Name Comments Kidney Disease Brother Obstructive Sleep Apnea Brother Heart Attack Father Hypertension Father Cancer Maternal Aunt Diabetes Maternal Aunt Cancer Maternal Grandfather Diabetes Mother High Cholesterol Mother Hypertension Mother Kidney Disease Mother Cancer Paternal Aunt Heart Attack Paternal Grandfather Hypertension Paternal Grandfather Heart Attack Paternal Uncle Hypertension Paternal Uncle Kidney Disease Sister Relation Name Status Comments Brother 2 brothers use a c pap Father Maternal Aunt x 2 aunts Maternal Grandfather colon c ancer Mother Paternal Aunt colon cancer Paternal Grandfather Paternal Uncle Sister Social History Tobacco Use Types Packs/Day Years Used Date Smoking Tobacco: Every Day Cigarettes 0.5 49 Started: 07/12/1976 Smokeless Tobacco: Never Tobacco Cessation:Ready to Q uit: Not Asked; Counseling Given: Not Answered Alcohol Use Standard Drinks/Week Comments Yes 0 (1 standard drink = 0.6 oz pur e alcohol) AUDIT-C Answer Date Recorded Frequency of Alcohol Consumption Monthly or less 07/12/2019 Average Number of Drinks 1 or 2 019 Frequency of Binge Drinking Never 07/01 PHQ-2 Answer Date Recorded Total Score - Questions 1-9 19 12/2023 Sexually Active Control Partners Comments Yes Male Comments No Sex and Gender Information Value Date Recorded Sex Assigned at Not on file Legal Sex Female 9:35 AM CDT Gender Identity Not on file Sexual Orientation Not on file Last Filed Vital Signs Vital Sign Reading Time Taken Comments Blood Pressure 136/90 06/28/2025 11:08 AM CDT Pulse 95 06/28/2025 11:08 AM CDT Temperature 36.5 C (97.7 F) 06/28/2025 11:08 AM CDT Respiratory Rate 18 06/28/2025 11:08 AM CDT Oxygen Saturation 94% 06/28/2025 11:08 AM CDT Inhaled Oxygen Concentration - - Weight 125.4 kg (276 lb 8 oz) 06/28/2025 11:08 A M CDT Height 157.5 cm (5' 2) 06/28/2025 11:08 AM CDT Body Mass Index 50.57 06/28/2025 11:08 AM CDT Plan of Treatment Upcoming Encounters Date Type Department Care Team (Late st Contact Info) Description 07/26/2025 10:35 AM CDT Lab [facility] [address] [phone] Lab, [facility] 07/26/2025 10:45 AM CDT Office Visit [facility] [address] [phone] Davi Sesay, DO [address] [place] [phone] Health Maintenance Due Date Last Done Comments Diabetes: Eye Exam 1967 Diabetes: Foot Exam 1967 Hepatitis C Virus (HCV) Screening 1967 Mammogram 1967 Pneumococcal Immunization (50+ years) (1 of 2 - PCV) 1986 02/13/2021, 02/13/2021, 12/12/2020, Additional history exists Pap Smear 1988 Cervical Cancer Screening (CCS) 1997 HPV/Cotest 1997 Cologuard 2012 Colonoscopy 2012 Colorectal Cancer Screening 2012 Immunochemical Fecal Occult Blood 2012 Diabetes: Hemoglobin A1c 07/13/2020 01/13/2020 DTaP/Tdap/Td Immunization (3 - Tdap) 06/11/2021 12/12/2020, 09/08/2020, 07/07/2020 SARS-COV-2 Immunization ( season) 2024 09/26/2021, 07/17/2021, 06/29/2021 Lung Cancer Screening 09/12/2024 09/12/2023 , 01/24/2023, 01/14/2020, Additional history exists Influenza Immunization (#1) 08/01/202510/31, 09/08/2020, 09/20/2019 Diabetes: Nephropathy Screening 03/11/2026 03/11/2025, 11/08/2024, 08/31/2024, Additional history exists Respiratory Syncytial Virus (RSV) Immunization (Adult) (1 - 1-dose 75+ series) 2042 Meningococcal Immunization (ACWY) Aged Out 09/08/2020, 07/07/2020 No longer eligibl e based on patient's age to complete this topic Zoster Immunization Completed 12/12/2020, 0 Pneumococcal Immunization Combined Discontinued 02/13/2021, 02/13/2021, 12/12/2020, Additional history exists Hepatitis B Immunization Completed 022, 02/13/2021, 02/13/2021, Additional history exists Human Papillomavirus (HPV) Immunization Aged Out No longer eligible based on patient's age to complete this topic Rotavirus Immunization Aged Out No lo nger eligible based on patient's age to complete this topic Procedures Procedure Name Priority Date/Time Associated Diagnosis Comments MULTIPLE MYELOMA FISH PANEL OH 5282-9 Routine 06/28/2025 10:45 AM CDT SERUM FREE LIGHT CHAINS, OH Routine 06/28/2025 10:45 AM CDT CBC WITH AUTO DIFF OH Routine 06/28/2025 10:45 AM CDT COMP. METABOLIC PANEL [id number] OH Routine 06/28/2025 10:45 AM CDT IMMUNOGLOBULINS A/G/M [id number] OH Routine 06/28/2025 10:45 AM CDT FLOW MYE/LYM + ACUTE LEUK OH A039-0 Routine 06/28/2025 10:45 AM CDT PROTHROMBIN TIME (PT) [id number] OH Routine 06/28/2025 10:45 AM CDT ELECTROPHORESIS W/ TOTAL PROTEIN SERUM Routine 06/28/2025 10:45 AM CDT Multiple myeloma, remission status unspecified (HCC) IMMUNOFIXATION, SERUM OH Routine 06/28/2025 10:45 AM CDT Multiple myeloma, remission status unspecified (HCC) APTT (PTT) Routine 06/28/2025 10:45 AM CDT Multiple myeloma, remission status unspecified (HCC) Lytic lesion of bone on x-ray Abnormal positron emission tomography (PET) scan CMP (COMPREHENSIVE METABOLIC PANEL) Routine 03/11/2025 9:47 AM CDT Multiple myeloma, remission status unspecified (HCC) CT CHEST W CONTRAST Routine 01/24/2023 1 :36 PM E LEARNING DESIGNER Multiple myeloma, remission status unspecified (HCC) from Last 3 Months or Most Recently Relevant to Health Maintenance Results * SERUM FREE LIGHT CHAINS, OH (06/28/2025 10:45 AM CDT) FREE KAPPA LT CHAINS 19.4 2.9 - 20.7 mg/L [facility] FREE LAMBDA LT CHAINS 19.5 4.2 - 27.6 mg/L [facility] KAPPA/LAMBDA RATIO 0.99 0.22 - 1.74 [facility] 06/28/2025 10:4 5 AM CDT us Davi Sesay DO LAB SEND OUTS Final Result [facility] [address] [place] [address], [place] [phone] * IMMUNOGLOBULINS A/G/M [id number] OH (06/28/2025 10:45 AM CDT) IMMUNOGLOBULIN G, QN, SERUM 1,109 586 - 1,602 MG/DL [facility] IMMUNOGLOBULIN A, QN, SERUM 209 87 - 352 MG/DL [facility] IMMUNOGLOBULIN M, QN, SERUM 58 26 - 217 MG/DL [facility] 06/28/2025 10:4 5 AM CDT Narrative [facility] - 06/29/2025 7:08 AM CDT TESTING PERFORMED AT: [] [facility], [address] [place] [address], [address], PHONE: [phone], COUNTER WEIGHER: JOEY MOSQUERA, PHD us Davi Sesay DO LAB SEND OUTS Final Result Performing Organization Address [facility]/ZIP Co de Phone Number [facility] [address] [place] [address], [place] [phone] * (ABNORMAL) COMP. METABOLIC PANEL [id number] OH (06/28/2025 10:45 AM CDT) GLUCOSE, SERUM 174(H) 70 - 99 MG/DL [facility] BUN 16 6 - 24 MG/DL [facility] CREATININE, SERUM 0.97 0.57 - 1.00 MG/DL [facility] EGFR 68 >59 ML/MIN/1.7 3 [facility] BUN/CREATININE RATIO 16 9 - 23 [facility] SODIUM, SERUM 142 134 - 144 MMOL/L [facility] POTASSIUM, SERUM 3.6 3.5 - 5.2 MMOL/L [facility] CHLORIDE, SERUM 106 96 - 106 MMOL/L [facility] CARBON DIOXIDE, TOTAL 21 20 - 29 MMOL/L [facility] CALCIUM, SERUM 9.2 8.7 - 10.2 MG/DL [facility] PROTEIN, TOTAL, SERUM 6.6 6.0 - 8.5 G/DL [facility] ALBUMIN, SERUM 4.1 3.8 - 4.9 G/DL [facility] GLOBULIN, TOTAL 2.5 1.5 - 4.5 G/DL [facility] BILIRUBIN, TOTAL 0.2 0.0 - 1.2 MG/DL [facility] ALKALINE PHOSPHATASE, S 93 44 - 121 IU/L [facility] AST (SGOT) 14 0 - 40 IU/L [facility] ALT (SGPT) 12 0 - 32 IU/L [facility] 06/28/2025 10:4 5 AM CDT Narrative [facility] - 06/29/2025 7:08 AM CDT TESTING PERFORMED AT: [] [address], [address], PHONE: [phone], COUNTER WEIGHER: JOEY MOSQUERA, PHD us Davi Sesay DO LAB SEND OUTS Final Result [facility] [address] [place] [address], * PROTHROMBIN TIME (PT) [id number] OH (06/28/2025 10:45 AM CDT) INR 1.0 0.9 - 1.2 [facility] Comment: REFERENCE INTERVAL IS FOR NON-ANTICOAGULATED PATIENTS. SUGGESTED INR THERAPEUTIC RANGE FOR VITAMIN K ANTAGONIST THERAPY: STANDARD DOSE (MODERATE INTENSITY THERAPEUTIC RANGE): 2.0 - 3.0 HIGHER INTENSITY THERAPEUTIC RANGE 2.5 - 3.5 PROTHROMBIN TIME 10.8 9.1 - 12.0 SEC [facility] 06/28/2025 10:4 5 AM CDT Narrative [facility] - 06/29/2025 7:08 AM CDT TESTING PERFORMED AT: [] [facility], [address] [place] [address], [address], PHONE: [phone], COUNTER WEIGHER: JOEY MOSQUERA, PHD Davi Sesay DO LAB SEND OUTS Final Result Performing Organization Address [facility] Co de Phone Number [facility] [address] [address], [place] [phone] * IMMUNOFIXATION, SERUM [place] (06/28/2025 10:45 AM CDT) IMMUNOFIXATION RESULT, SERUM COMMENT [facility] Comment:NO MONOCLONALITY DET ECTED. 06/28/2025 10:4 5 AM CDT Narrative [facility] - 06/30/2025 3:09 PM CDT TESTING PERFORMED AT: [] [facility], [address] [place] [address], [place], [address], PHONE: [phone], COUNTER WEIGHER: JOEY MOSQUERA, PHD Release to patient->Immediate us Davi Sesay DO LAB SEND OUTS Final Result Performing Organization Address [facility] Co de Phone Number [facility] [place] [address] [place] [address], [place] [phone] * (ABNORMAL) CBC WITH AUTO DIFF [place] (06/28/2025 10:45 AM CDT) WBC 8.0 4.0 - 10.0 10*3/uL [facility] HGB 14.8 11.2 - 15.7 g/dL [facility] HCT 46.1(H) 34.1 - 44.9 % [facility] PLT 169 163 - 369 10*3/uL [facility] MPV 10.6 9.4 - 12.4 fL [facility] RBC 5.32(H) 3.93 - 5.22 10*6/uL [facility] MCV 87 79 - 95 fL [facility] MCH 27.8 25.6 - 32.2 pg [facility] MCHC 32.1(L) 32.2 - 36.5 g/dL [facility] RDW 14.6(H) 11.6 - 14.4 % [facility] Neutrophils % 47.5 36.0 - 66.0 % [facility] Lymphocytes % 42.0(H) 19.0 - 40.0 % [facility] Monocytes % 6.8 4.1 - 12.1 % [facility] Eosinophils % 3.0 0.0 - 3.5 % [facility] Basophils % 0.5 0.0 - 1.0 % [facility] Absolute Neutrophils 3.8 1.4 - 6.6 10*3/uL [facility] Absolute Lymphocytes 3.4 0.8 - 4.0 10*3/uL [facility] Absolute Monocytes 0.6 0.2 - 1.2 10*3/uL [facility] Absolute Eosinophils 0.2 0.0 - 0.4 10*3/uL [facility] Absolute Basophils 0.0 0.0 - 0.1 10*3/uL [facility] 06/28/2025 10:4 5 AM CDT us Davi Sesay DO LAB SEND OUTS Final Result [facility] [place] [address], * FLOW MYE/LYM + ACUTE LEUK OH A039-0 (06/28/2025 10:45 AM CDT) ACUTE 10 COLOR PANEL Negative [facility] Comment: INTERPRETATION PERIPHERAL BLOOD: - Flow cytometric analysis does not show significant numbers of circulating blasts or an abnormal lymphoid or myeloid population. - See comments. COMMENT Myelodysplastic syndromes (MDS) and myeloproliferative neoplasms (MPN) may not display antigenic variation on the maturing myeloid component, and cannot be excluded by a normal flow cytometry immunophenotype. DIAGNOSIS CODE(S): C90.00 IMMUNOPHENTYPIC ANALYSIS: No Abnormal Cells Present Viability 7AAD: 98.11% There is a mixed population of neutrophils, monocytes, and lymphocytes. There are no circulating blasts identified. Neutrophils (32.8%) do not display an aberrant phenotype. The orthogonal side scatter is normal. No significant number of CD56+ or CD10-/CD16- neutrophils is noted. Monocytes (5.01%) appear mature (CD14+/CD64+) and do not display overt phenotypic atypia. B-cells (10.6%) are polytypic. T-cells (38.39%) show no deletion or abnormal dim expression of ge-T-cell antigens on significant subset of cells. The CD7- T-cells are within normal range (<15%). The CD4:CD8 ratio is 2.1:1. The T-LGL cells comprise 3.53%. DISCLAIMER: Antibodies Analyzed: CD19,CD20,CD10,CD11c,CD23,CD22,CD25,CD71,CD81,CD103,CD200,[place],L ambda,CD2,CD3,CD4,CD5,CD7,CD8,CD56,CD57,CD11b,CD13,CD14,CD15,CD16 ,CD33,CD64,CD34,CD38,CD117,CD123,CD133,HLA-DR,CD45. - This test was developed and its performance characteristics determined by [employer]. It has not been cleared or approved by the [place] Food and Drug Administration. The FDA does not require this test to go through premarket FDA review. This test is used for clinical purposes. It should not be regarded as investigational or for research. This laboratory is certified under the Clinical Laboratory Improvement Amendments (CLIA) as qualified to perform high complexity clinical laboratory testing. - The following are reference ranges for normal bone marrow (BM) and peripheral blood (PB) cases were established on analysis of 120 cases (based on the expression of CD13 and CD33 for granulocytes/neutrophils, CD14 and CD64 for monocytes, CD19, CD20 and CD22 for B-cells, CD2, CD3, CD5 and CD7 for T-cells based, CD34 and CD117 for blasts). For age group 18-65 years (average +/- SD), BM: granulocytes 60.3% (+/-20.1); B-cells 1.4 (+/- 1.1); T-cells 9.8 (+/- 6.1); blasts 1.2 (+/-0.9) and monocytes 3.4 (+/- 3.3); PB: neutrophils 50.8% (+/-17.9); B-cells 4.5 (+/- 2.6), T-cells 22.7 (+/- 10.4), blasts 0.2 (+/-0.2) and monocytes 4.2 (+/- 2.0). For age group >65 years (average +/- SD), BM: granulocytes 60.6% (+/-20.0); B-cells 1.4 (+/- 1.6), T-cells 8.2 (+/- 6.1), blasts 1.1 (+/-0.7) and monocytes 4.0 (+/- 4.4); PB: neutrophils 50.3% (+/-18.4); B-cells 3.5 (+/- 2.4), T-cells 22.9 (+/- 9.6), blasts 0.2 (+/-0.2) and monocytes 4.5 (+/- 2.1). - The performance characteristics of body fluids by flow cytometry have not been fully determined and should be evaluated in the context of the patient's clinical status. ASSOCIATED TESTS: Fluorescence In-Situ Hybridization (FISH) ELECTRONIC SIGNATURE: Kaleb Torres M.D., Ph.D. Hematopathologist, ex. [phone] This report was electronically signed. 06/28/2025 10:4 5 AM CDT [facility] - 06/30/2025 9:15 AM CDT Testing performed at: [employer]. [address] [place] [address]. [place] [address], Refrigerator Cabinetmaker: Dr. Bairon Wang M.D.; [facility] Accn#:[id number] us Davi Hough Lázaro DO LAB SEND OUTS Final Result [facility] [place] [address], * MULTIPLE MYELOMA FISH PANEL SC [id number] (06/28/2025 10:45 AM CDT) GP/BCL-1,T(11;14),FIS H Negative [facility] IGH/CCND1 for t(11;14) - Normal Nuclei 100.00 % [facility] Comment: INTERPRETATION : No evidence of CCND1-IGH [translocation t(11;14)] gene rearrangement, and no evidence for trisomy 11 or gain of 11q. PROBE TYPE : Dual Color / Dual Fusion CATALOG ID: [employer] CL CCND1/IGH [id number] ISCN NOMENCLATURE: nuc jasmin(CCND1,IGH)x2[300] NORMAL BACKGROUND CUTOFF VALUE(S): Dual Fusion (PB and BM): 0.4% Dual Fusion (FFPE tissue): 0.5% Single Fusion (PB and BM): 12.7% Trisomy 11 (PB and BM): 0.7% 1.0% for dual fusion, 5.1% for single fusion, and 1.0% for trisomy if immunomagnetically enriched (BM) Note: Positive signals detected below the determined cutoff value are considered a negative result. For any given probe, a cutoff value is determined by serial analysis of normal cases, and is an artifact inherent to the methodology. Automated imaging analysis performed using the Hot Mix Mobile Imaging System on a Nulogy slide scanning platform, [employer] [facility], [place], Zach FGFR3,RB1,BCL1,P53,1q 21-FISH Negative [facility] FGFR3/IGH rearrangement - Normal Nuclei 100.00 % [facility] Comment: INTERPRETATION : No evidence of FGFR3-IGH [translocation t(4;14)] gene rearrangement. PROBE TYPE : Dual Color, Dual Fusion CATALOG ID: Scimetrika XL t(4;14) [id number] [facility] NOMENCLATURE: nuc jasmin(FGFR3, IGH)x2[300] NORMAL BACKGROUND CUTOFF VALUE(S): (PB and BM): FGFR3/IGH dual fusion: 0.5%, (PB and BM): FGFR3/IGH single fusion: 5%, 0.5% for dual fusion and 5.3% for single fusion if immunomagnetically enriched (BM), 0.5% for FFPE Note: Positive signals detected below the determined cutoff value are considered a negative result. For any given probe, a cutoff value is determined by serial analysis of normal cases, and is an artifact inherent to the methodology. Automated imaging analysis performed using the Hot Mix Mobile Imaging System on a Nulogy slide scanning platform, [employer] [facility], [facility] GP/P53/[id number]/CAROL/+1 2 Negative [facility] CL TP53 for 17p13 - Normal Nuclei 95.00 % [facility] CL TP53 for 17p13 - Positive Nuclei with p53 deletion 5.00 % [facility] Comment: INTERPRETATION : No evidence of p53 (17p13) deletion or amplification. PROBE TYPE : Single Color CATALOG ID: Sc[employer]rika [id number] [facility] NOMENCLATURE: nuc jasmin([id number])x2[300] NORMAL BACKGROUND CUTOFF VALUE(S): (PB and BM): 7.3%, 5.5% if immunomagnetically enriched (BM), 3% for FFPE Note: Positive signals detected below the determined cutoff value are considered a negative result. For any given probe, a cutoff value is determined by serial analysis of normal cases, and is an artifact inherent to the methodology. Automated imaging analysis performed using the Hot Mix Mobile Imaging System on a Nulogy slide scanning platform, [employer], [facility] FGFR3,RB1,BCL1,P53,1q 21-FISH Negative [facility] 1Q21/CKS1B - NORMAL NUCLEI - 1 100.00 % [facility] Comment: INTERPRETATION : Negative for 1q21/CKS1B gain PROBE TYPE : Dual Color CATALOG ID: Sc[employer]rika Order Number [id number] [facility] NOMENCLATURE: nuc jasmin(CKS1B,CDKN2C)x2[300] NORMAL BACKGROUND CUTOFF VALUE(S): (PB and BM): 1.6% 4.5% if immunomagnetically enriched (BM), 1.2% for FFPE Note: Positive signals detected below the determined cutoff value are considered a negative result. For any given probe, a cutoff value is determined by serial analysis of normal cases, and is an artifact inherent to the methodology. Automated imaging analysis performed using the Hot Mix Mobile Imaging System on a Nulogy slide scanning platform, Scimetrika [facility] FGFR3,RB1,BCL1,P53,1q 21-FISH Negative [facility] RB1 for 13q14 - Normal Nuclei 96.00 % [facility] RB1 for 13q14 - Nuclei with RB1 Monosomy 4.00 % [facility] Comment: INTERPRETATION : No evidence of RB1 monosomy (13q14 deletion). PROBE TYPE : Single Color CATALOG ID: Sc[employer]rika [id number] [facility] NOMENCLATURE: nuc jasmin([id number],H83H420)x2[300] NORMAL BACKGROUND CUTOFF VALUE(S): (PB and BM): 6.5%, 5.6% if immunomagnetically enriched (BM), 3.1% for FFPE Note: Positive signals detected below the determined cutoff value are considered a negative result. For any given probe, a cutoff value is determined by serial analysis of normal cases, and is an artifact inherent to the methodology. Automated imaging analysis performed using the Hot Mix Mobile Imaging System on a Nulogy slide scanning platform, Scimetrika [facility] FGFR3,RB1,BCL1,P53,1q 21-FISH Negative [facility] IGH/MAF for t(14;16) - Normal Nuclei 100.00 % [facility] Comment: INTERPRETATION : No evidence of IGH-MAF [translocation t(14;16)] gene rearrangement PROBE TYPE : Dual Color, Dual Fusion CATALOG ID: Scimetrika [id number] [id number] NOMENCLATURE: nuc jasmin(IGH,MAF)x2[300] NORMAL BACKGROUND CUTOFF VALUE(S): (PB and BM): IGH/MAF dual fusion: 0.4%, (PB and BM): IGH/MAF single fusion: 3.5%, If immunomagnetically enriched (BM): 0.5%, 0.5% for FFPE Note: Positive signals detected below the determined cutoff value are considered a negative result. For any given probe, a cutoff value is determined by serial analysis of normal cases, and is an artifact inherent to the methodology. Automated imaging analysis performed using the Hot Mix Mobile Imaging System on a Nulogy slide scanning platform, [employer] [facility], [facility], [facility] REFERENCES: 1. Hernando H, Maria Isabel F, Kelby L, et al. Translocation t(14;16) and multiple myeloma: is it really an independent risk factor? Blood 117(6):3933-8772. 2. Slade PL, Sergio WM. Chromosome translocations in multiple Myeloma, Oncogene. 2000Aug 10;20(40):5611-22. 3. Baldo H, Marga X, Deann T, et al. Multiple myeloma patients with CKS1B gene amplification have a shorter progression-free survival post-autologous stem cell transplantation. Br J Haematol. 135(4):486-491, 2005 4. Baldo Dudley, Boston S, Kimmy D, Tomas Steward, et al. The t(4;14) is associated with poor prognosis in myeloma patients undergoing autologous stem cell transplant. Br J Haematol. 2003;125(1):64-8. Blood. 1998 Oct 01;92(9):3025-34. 5. Niurka M, Debii E, Malone RS, et al. The t(4;14) translocation in myeloma dysregulates both FGFR3 and a novel gene, MMSET, resulting in IgH/MMSET hybrid transcripts. Blood. 1998 Oct 01;92(9):3025-34. 6. Alarcon R, Blood E, Rue M, et al. Clinical and biologic implications of recurrent genomic aberrations in myeloma. Blood 101(11):7185-6456. 7. Parrish M, Keerthi M, Gale A, et al. Clinical implications of t(11;14)(q13;32), t(4;14)(p16.2;q32), and -17p13 in myeloma patients treated with high-dose thereapy. Blood 106(8):2320-8765. 8. Jus S and Kulwant F. Cancer Cytogenetics, 3nd edition, Dominguez-Dickey, [employer], INC 2009. 9. Rashid J, Binu CM, Joana A, et al. Gain of 1q21 and distinct adverse cytogenetic abnormalities correlate with increased microcirculation in multiple myeloma. Int J Cancer: 122(12):1630-5220,2008 10. Skyler JonesJ, Mike A, Saranya TJ, Efren R, Kimmy CY, Zachary TE. Prognostic significance of monosomy at the 13q14 locus detected by fluorescence in situ hybridization in B-cell chronic lymphocytic leukemia. Cancer Gauri Cytogenet. 110:77-81, 1998. 11. Toby W, Timoteo S, Baldo H, et al. Clinical outcomes in t(4;14) multiple myeloma: a chemotherapy-sensitive disease characterized by rapid relapse and alkylating agent resistance. J Clin Oncol. 2005 Aug 31;23(28):7414-73. Epub 2004Jul 29. 12. Juanita SrivastavaJ, Sravanthi T, Mp CA, et al. In multiple myeloma, t(4;14)(p16;q32) is an adverse prognostic factor irrespective of FGFR3 expression. Blood. 2002 15;101(4):1520-9. Epub 2001Sep 02. 13. Dez U, Nico A, Hidaphneycher T, et al. Chromosomal Aberrations +1q21 and del(17p13) Predict Survival in Patients With Recurrent Multiple Myeloma Treated With Lenalidomide and Dexamethasone. Cancer 117(10):7864-2199,2010 14. Napoleon Ma Fausto. Pathologic Basis of Disease. Elsevier Press, [place], 2004. 15. Joshua JR, Roderick JA, Osbaldo S, Barlogfrancisca B. Cytogenetic findings in 200 patients with multiple myeloma Cancer Gauri Cytogenet. 82:41-49, 1994. 16. VThe Spoken Thought Product Catalog, 2003 17. World Health Organization Classification of Tumors. Tumors of Haematopoietic and Lymphoid Tissues, IARC Press, [place]var[place], Siobhan, 2008. ASSOCIATED TESTS: 10-color Flow Cytometry analysis for Acute Leukemia and Myeloid/Lymphoid Neoplasms released on: 06/30/2025 DISCLAIMER: The following probes contain 2 or more separate fluorochromes and are considered multiplex probes: 1q21/CKS1B, 4q12 for PDGFRalpha, AML1/ETO, BCR/ABL1, BCL6, CBFB for inv(16), W6O636/XCE7 for -7/7q-, IGH/BCL2, IGH/CCND1, IGH/FGFR3, IGH/MAF, IGH/MYC, IGH (14q32),MDM2, MET, MLL for t(11q23), MYC BA, PML/GEOVANNY, PTEN 10q23, ROS1, XL5q31, XL t(14;20) IGH/MAFB, XL GEOVANNY (17q21), XL FOXO1, 1p36/19q, XL SS18, XL EWSR1(22q12), PDGFRB, XL FGFR1 BA. CEP 8, CEP 12, CEP X/Y, ALK (2p23), UroVysion and HER2/theron by FISH probes are FDA cleared. For discussion of prognosis implications, the physician and/or patient may consult with a genetic counselor and/or a genetic specialist. These tests were developed and their performance characteristics were determined by [employer]. They may not be cleared or approved by the U.S. Food and Drug Administration. The FDA does not require these test to go through premarket FDA review. These tests are used for clinical purposes. It should not be regarded as investigational or for research. [employer] is certified under the Clinical Laboratory Improvement Amendments of 1988 CLIA as qualified to perform high complexity clinical testing. ELECTRONIC SIGNATURE: Annette Gutierrez M.D. Hematopathologist, ex. [phone] This report was electronically signed. 06/28/2025 10:4 5 AM CDT [facility] - 07/05/2025 2:15 PM CDT Testing performed at: [employer]. [address] [place], [place] [address] [address], Refrigerator Cabinetmaker: Dr. Bairon Wang M.D.; [facility] Accn#:[id number] us Davi Sesay DO PATHOLOGY/CYTOLOGY ORDERABLES Final Result [facility] [place] [address], * APTT (PTT) (06/28/2025 10:45 AM CDT) APTT 26 24 - 33 SEC [facility] Comment: THIS TEST HAS NOT BEEN VALIDATED FOR MONITORING UNFRACTIONATED HEPARIN THERAPY. APTT-BASED THERAPEUTIC RANGES FOR UNFRACTIONATED HEPARIN THERAPY HAVE NOT BEEN ESTABLISHED. FOR GENERAL GUIDELINES ON HEPARIN MONITORING, REFER TO THE [facility]. Blood 06/28/2025 10:4 5 AM CDT Narrative [facility] - 06/29/2025 8:36 AM CDT TESTING PERFORMED AT: [] [facility], [address] [place] [address], [place], [address], PHONE: [phone], COUNTER WEIGHER: JOEY MOSQUERA, PHD Release to patient->Immediate us Davi Sesay DO HEMATOLOGY ORDERABLES Final Re sult [facility] [place] [address] [place] [address], * ELECTROPHORESIS W/ TOTAL PROTEIN SERUM (06/28/2025 10:45 AM CDT) ALBUMIN 3.4 2.9 - 4.4 G/DL [facility] [id number] 0.2 0.0 - 0.4 G/DL [facility] [id number] 0.9 0.4 - 1.0 G/DL [facility] BETA GLOBULIN 1.1 0.7 - 1.3 G/DL [facility] GAMMA GLOBULIN 1.0 0.4 - 1.8 G/DL [facility] M-SPIKE NOT OBSERVED NOT OBSERVED G/DL [facility] GLOBULIN, TOTAL 3.2 2.2 - 3.9 G/DL [facility] A/G RATIO 1.1 0.7 - 1.7 [facility] PLEASE NOTE: COMMENT [facility] Comment: PROTEIN ELECTROPHORESIS SCAN WILL FOLLOW VIA COMPUTER, MAIL, OR CEO NA DELIVERY. PDF . [facility] Blood 06/28/2025 10:4 5 AM CDT Narrative [facility] - 06/29/2025 3:09 PM CDT TESTING PERFORMED AT: [] [facility], [address] [place] [address], [place], [address], PHONE: [phone], COUNTER WEIGHER: JOEY MOSQUERA, PHD Release to patient->Immediate us Davi Sesay DO CHEMISTRY ORDERABLES Final Res ult [facility] [place] [address], * (ABNORMAL) CMP (COMPREHENSIVE METABOLIC PANEL) (03/11/2025 9:47 AM CDT) Glucose 204(H) 70 - 105 mg/dL [facility]QUISITIONS CONSULTANT [facility] Blood Urea Nitrogen 10 7 - 25 mg/dL [facility] Creatinine 0.8 0.6 - 1.2 mg/dL [facility] Sodium 144 136 - 145 mEq/L [facility] Potassium 3.4(L) 3.5 - 5.1 mEq/L [facility] Chloride 104 98 - 107 mEq/L [facility] Bicarbonate 31 21 - 31 mEq/L [facility] Total Bilirubin 0.5 0.3 - 1.0 mg/dL [facility] Alk. Phosphatase 81 34 - 104 U/L [facility] Aspartate Aminotransferase 11(L) 13 - 39 U/L [facility] Alanine Aminotransferase 8 7 - 52 U/L [facility] Total Protein 6.6 6.4 - 8.9 g/dL [facility] Albumin 4.1 3.5 - 5.7 g/dL [facility] Calcium 9.7 8.6 - 10.3 mg/dL [facility] Anion Gap 12.4 7.0 - 15.0 mEq/L [facility] Globulin 2.5 2.0 - 3.5 g/dL [facility]QUISITIONS CONS[facility] EGFR 85 >60 ml/min/1. 73m2 [facility] Comment: This eGFR is calculated using 2020 CKD-EPI Creatinine equation without race modifier based on the NKF-ASN task force recommendations Equation: iPYZ=057*min(SCr/k,1)a*max(SCr/k,1)-1.200*0.9938Age*1.012 (if female), where SCr is serum creatinine, k is 0.7 for females and 0.9 for males, and a is -0.241 for females and -0.302 for males Blood 03/11/2025 9:47 AM CDT Narrative [facility] - 03/11/2025 10:40 AM CDT Release to patient->Immediate IS THE PATIENT REQUIRED TO BE FASTING FOR 8 HOURS?->No us Davi Sesay DO CHEMISTRY ORDERABLES Final Res ult [facility] [address] [place] [address], * CT CHEST W CONTRAST (01/24/2023 1:36 PM E LEARNING DESIGNER) Anatomical Region Laterality Modality Chest N/A Computed Tomogra phy Narrative 01/24/2023 2:59 PM E LEARNING DESIGNER EXAMINATION: CT CHEST W CONTRAST 01/24/2023 INDICATIONS: Multiple myeloma not having achieved remission . Lymphadenopathy chest and axilla. New right-sided supraclavicular mass. History of multiple myeloma July 2019. COMPARISON: Chest CT from another facility January 14, 2020. TECHNIQUE: CT chest with IV contrast-100 cc Omnipaque. A dose lowering technique was used for this procedure, which may include, but is not limited to, dose reduction technique(s), automated exposure control techniques, use of iterative reconstruction techniques, and ALARA (as low as reasonably achievable) or ALARA/IMAGE Gently techniques. FINDINGS: Cardiovascular: Trace pericardial fluid. Changes of coronary artery disease present. Thoracic aorta, pulmonary trunk, right and left main pulmonary arteries appear normal. Pleura: No pleural effusion. Lymphatics: The spleen is not enlarged. No mediastinal or hilar lymphadenopathy. Lymphadenopathy right and left submandibular regions partially included in the field of view. Mildly enlarged lymph nodes are present within the right axilla. Intermediate attenuation fullness within the subcutaneous fat of the anterolateral right axilla extends to the skin surface. Lungs: No pulmonary parenchymal consolidation or lesion. MSK: Area of lucency involving T10 vertebral body anteriorly with the appearance of incidental structure such as lipoma or hemangioma. This is unchanged from prior. Mild chronic changes of thoracic spondylosis. IMPRESSION Mildly enlarged lymph nodes throughout the right axilla with intermediate attenuation fullness superficially inseparable from the skin surface. Base of neck partially included in the field of view. Submandibular lymphadenopathy suspected partially included in the field of view. Clinical correlation and follow-up recommended. Electronically signed by: Juarez Louis Date of Signature: 01/24/2023 14:59:24 Procedure Note Juarez Louis MD - 01/24/2023 EXAMINATION: CT CHEST W CONTRAST 01/24/2023 INDICATIONS: Multiple myeloma not having achieved remission . Lymphadenopathy chestand axilla. New right-sided supraclavicular mass. History of multiplemyeloma July 2019. COMPARISON: Chest CT from another facility January 14, 2020. TECHNIQUE: CT chest with IV contrast-100 cc Omnipaque. A dose lowering technique was used for this procedure, which may include,but is not limited to, dose reduction technique(s), automated exposurecontrol techniques, use of iterative reconstruction techniques, and ALARA(as low as reasonably achievable) or ALARA/IMAGE Gently techniques. FINDINGS: Cardiovascular: Trace pericardial fluid. Changes of coronary arterydisease present. Thoracic aorta, pulmonary trunk, right and left mainpulmonary arteries appear normal. Pleura: No pleural effusion. Lymphatics: The spleen is not enlarged. No mediastinal or hilarlymphadenopathy. Lymphadenopathy right and left submandibular regionspartially included in the field of view. Mildly enlarged lymph nodes arepresent within the right axilla. Intermediate attenuation fullness withinthe subcutaneous fat of the anterolateral right axilla extends to the skinsurface. Lungs: No pulmonary parenchymal consolidation or lesion. MSK: Area of lucency involving T10 vertebral body anteriorly with theappearance of incidental structure such as lipoma or hemangioma. This isunchanged from prior. Mild chronic changes of thoracic spondylosis. IMPRESSION Mildly enlarged lymph nodes throughout the right axilla with intermediateattenuation fullness superficially inseparable from the skin surface. Base of neck partially included in the field of view. Submandibularlymphadenopathy suspected partially included in the field of view. Clinical correlation and follow-up recommended. Electronically signed by: Juarez Louis Date of Signature: 01/24/2023 14:59:24 us Davi Sesay DO IMG CT ORDERABLES Final Result from Last 3 Months or Most Recently Relevant to Health Maintenance Insurance MEDICAID [facility] Care Teams Carpenters Helper Relationship Specialty Start Date End Date Yaneth Gage APRN, PIERCE [address] [place] [address] PCP - General Certified Nurse Practitioner 06/30/19 Davi Sesay DO [address] [place] [address] Consulting Physician Oncology 07/05/19 Saira Tejada MD [address] [place] [address] Consulting Physician 09/06/19
--- OUTSIDE RECORDS SUMMARY | 2025-07-13 14:58 | XMS_ITS | Encounter Summary ---
Author Organization [facility] Address [address] [place] [address] Phone Care Team Providers Care Green Building Energy Engineer Name Role Phone Yaneth Gage APRN, CNP Primary Care Provid er Davi Sesay DO Unavailable [phone] Saira Tejada MD Unavailable [phone] Reason for Visit * Reason Comments Medication Refill Encounter Details Date Type Department Care Team (Late st Contact Info) Description 09/22/2020 Refill [facility] [address] [place] [address] Davi Sesay, DO [address] [place] [address] Medication Refill Social History Tobacco [...] 10:35 AM CDT Lab [facility] [address] [phone] Lab, [facility] 07/26/2025 10:45 AM CDT Office Visit [facility] [address] [phone] Davi Sesay DO [address] [place] [phone] documented as of this encounter Visit Diagnoses Diagnosis Multiple myeloma in relapse (HCC) Multiple myeloma, in relapse documented in this encounter Additional Health Concerns Assessment Noted Time PHQ-9 Depression Total Score: 0 07/28/20 10:29 AM CDT documented as of this encounter Care Teams Green Building Energy Engineer Relationship Specialty Start Date End Date Yaneth Gage, DAMARIS, [employer]ING TRANSPORTATION DRIVER [address] [place] [id number] PCP - General Certified Nurse Practitioner 06/30/19 Davi Sesay DO [address] [place] [address] Consulting Physician Oncology 07/05/19 Saira Tejada MD [address] [place] [address] Consulting Physician 09/06/19 documented as of this encounter
--- OUTSIDE RECORDS SUMMARY | 2025-07-13 14:58 | XMS_ITS | Encounter Summary ---
Author Organization [facility] Address [address] [place] [address] Phone Care Team Providers Care Matching Machine Operator Name Role Phone Yaneth Gage APRN, CNP Primary Care Provid er Davi Sesay DO Unavailable [phone] Saira Tejada MD Unavailable [phone] Encounter Details Date Type Department Care Team (Late st Contact Info) Description 10/27/2020 Telephone [facility] [address] [place] [address] Davi Sesay, DO [address] [place] [address] Social History Tobacco Use Types [...] on file Sexual Orientation Not on file COVID-19 Exposure Response Date Recorded In the last month, have you been in contact with someone who was confirmed or suspected to have Coronavirus / COVID-19? No / Unsure 10/30/2020 2:30 PM SURGICAL SERVICES ASST documented as of this encounter Miscellaneous Notes * Telephone Encounter - Efren Eliana Hakeem - 10/27/2020 10:55 AM CST PATIENT WAS A NO SHOW TO HER APPT, WHEN I CALLED PATIENT SAID SHE FORGOT AND THAT SHE WOULD LIKE TOCOME IN ANY DAY BUT TUES NEXT WEEK. WAS ABLE TO SCHEDULE PATIENT FOR 10/30 @ 2:15 ICAL SERVICES ASST documented in this encounter Plan of Treatment Upcoming Encounters Date Type Department Care Team (Late st Contact Info) Description 07/26/2025 10:35 AM CDT Lab [facility] [address] [phone] Lab, [facility] 07/26/2025 10:45 AM CDT Office Visit [facility] [address] [phone] Davi Sesay DO [address] [place] [phone] documented as of this encounter Visit Diagnoses Not on filedocumented in this encounter Additional Health Concerns Assessment Noted Time PHQ-9 Depression Total Score: 0 09/26/20 20 9:15 AM CDT documented as of this encounter Care Teams Matching Machine Operator Relationship Specialty Start Date End Date Yaneth Gage APRN, ASSEMBLER MUSICAL EQUIPMENT [address] [place] [address] PCP - General Certified Nurse Practitioner 06/30/19 Davi Sesay DO [address] [place] [address] Consulting Physician Oncology 07/05/19 Saira Tejada MD [address] [place] [address] Consulting Physician 09/06/19 documented as of this encounter
--- OUTSIDE RECORDS SUMMARY | 2025-07-13 14:59 | XMS_ITS | Encounter Summary ---
Author Organization [facility] Address [address] [place] [address] Phone Care Team Providers Care After School Program Teacher Name Role Phone Yaneth Gage APRN, CNP Primary Care Provid er Davi Sesay DO Unavailable [phone] Saira Tejada MD Unavailable [phone] Encounter Details Date Type Department Care Team (Late st Contact Info) Description 08/03/2024 Telephone [facility] [address] [place] [address] Davi Sesay, DO [address] [place] [address] Social History Tobacco Use Types [...] encounter Miscellaneous Notes * Telephone Encounter - Olga Lidia Ernandez - 08/03/2024 12:00 PM CDT Called patient regarding missed appt left voicemail stating to call office back for rescheduling sent reminder letter out. documented in this encounter Plan of Treatment Upcoming Encounters Date Type Department Care Team (Late st Contact Info) Description 07/26/2025 10:35 AM CDT Lab [facility] [address] [phone] Lab, [facility] 07/26/2025 10:45 AM CDT Office Visit [facility] [address] [phone] Davi Sesay DO [address] [place] [phone] documented as of this encounter Visit Diagnoses Not on filedocumented in this encounter Additional Health Concerns Assessment Noted Time PHQ-9 Depression Total Score: 18 01/11/ 022 8:49 AM ACTING SECTION CHIEF documented as of this encounter Care Teams After School Program Teacher Relationship Specialty Start Date End Date Yaneth Gage APRN, PIERCE [address] [place] [address] PCP - General Certified Nurse Practitioner 06/30/19 Davi Sesay DO [address] [place] [address] Consulting Physician Oncology 07/05/19 Saira Tejada MD [address] [place] [address] Consulting Physician 09/06/19 documented as of this encounter
--- OUTSIDE RECORDS SUMMARY | 2025-07-13 14:59 | XMS_ITS | Encounter Summary ---
Author Organization [facility] Address [address] [place] [address] Phone Care Team Providers Care Echocardiograph Tech Name Role Phone Yaneth Gage APRN, CNP Primary Care Provid er Davi Sesay DO Unavailable [phone] Saira Tejada MD Unavailable [phone] Encounter Details Date Type Department Care Team (Late st Contact Info) Description 09/27/2021 Telephone [facility] [address] [place] [address] Davi Sesay, DO [address] [place] [address] Social History Tobacco Use Types [...] Date Recorded Total Score - Questions 1-9 1 08/31 Sexually Active Control Partners Comments Yes Male [...] have Coronavirus / COVID-19? No / Unsure 09/18/2021 11:02 AM CDT documented as of this encounter Miscellaneous Notes * Telephone Encounter - Tanya De Jesus - 09/27/2021 10:09 AM CDT PATIENT IS SEEING PAIN MANAGEMENT AT [facility] TODAY AT 10:30AM. documented in this encounter Plan of Treatment Upcoming Encounters Date Type Department Care Team (Late st Contact Info) Description 07/26/2025 10:35 AM CDT Lab [facility] [address] [phone] Lab, [facility] 07/26/2025 10:45 AM CDT Office Visit [facility] [address] [phone] Davi Sesay DO [address] [place] [phone] documented as of this encounter Visit Diagnoses Not on filedocumented in this encounter Additional Health Concerns Assessment Noted Time PHQ-9 Depression Total Score: 1 09/18/20 21 11:20 AM CDT documented as of this encounter Care Teams Echocardiograph Tech Relationship Specialty Start Date End Date Yaneth Gage APRN, VETERINARY SURGERY TECHNOLOGIST [address] [place] [address] PCP - General Certified Nurse Practitioner 06/30/19 Davi Sesay DO [address] [place] [address] Consulting Physician Oncology 07/05/19 Saira Tejada MD [address] [place] [address] Consulting Physician 09/06/19 documented as of this encounter
--- OUTSIDE RECORDS SUMMARY | 2025-07-13 14:59 | XMS_ITS | Encounter Summary ---
Author Organization [facility] Address [address] [place] [address] Phone Care Team Providers Care Director Stars Name Role Phone Yaneth Gage APRN, CNP Primary Care Provid er Davi Sesay DO Unavailable [phone] Saira Tejada MD Unavailable [phone] Encounter Details Date Type Department Care Team (Late st Contact Info) Description 09/08/2020 Telephone [facility] [address] [place] [address] Davi Sesay, DO [address] [place] [address] Social History Tobacco Use Types [...] encounter Miscellaneous Notes * Telephone Encounter - Davi Sesay DO - 09/08/2020 1:14 PM CDT Make sure next week, she needs labs checked since she is on revlimid. * Telephone Encounter - Tanya De Jesus - 09/08/2020 10:56 AM CDT PATIENT FORGOT ABOUT APPT BUT SHE IS RESCHEDULED. documented in this encounter Plan of Treatment Upcoming Encounters Date Type Department Care Team (Late st Contact Info) Description 07/26/2025 10:35 AM CDT Lab [facility] [address] [phone] Lab, [facility] 07/26/2025 10:45 AM CDT Office Visit [facility] [address] [phone] Davi Sesay DO [address] [place] [phone] documented as of this encounter Visit Diagnoses Not on filedocumented in this encounter Additional Health Concerns Assessment Noted Time PHQ-9 Depression Total Score: 0 07/28/20 20 10:29 AM CDT documented as of this encounter Care Teams Director Stars Relationship Specialty Start Date End Date Yaneth Gage APRN, PIERCE [address] [place] [address] PCP - General Certified Nurse Practitioner 06/30/19 Davi Sesay DO [address] [place] [address] Consulting Physician Oncology 07/05/19 [place] [address] [place] [address] Consulting Physician 09/06/19 documented as of this encounter
--- OUTSIDE RECORDS SUMMARY | 2025-07-13 14:59 | XMS_ITS | Encounter Summary ---
Author Organization [facility] Address [address] [place] [address] Care Team Providers Care Sustainable Design Coordinator Name Role Phone Davi Sesay DO Unavailable Saira Tejada MD Unavailable [phone] Nohemy Andrews GUTTER HANGER-METER READERS SUPERVISOR Unavailable [phone] Kamala Hood RN Unavailable Unavailable Lina Figueroa LCSW Unavailable Unavailab Thomas Stoddard MD Unavailable [phone] Luis Delaney MD Unavailable [phone] Christine Aguilera MD Unavailable [phone] Ceyc HenriquezD Unavailable Unavaila Keara Niño Unavailable Unavailable Debby Rebolledo RN Unavailable UnavailJaye Kruger RN Unavailable Unavailable Irene Barton RN Unavailable Unavaila Donna Brenner GUTTER HANGER-LOMBARDI DEVELOPER Unavailable [phone] Gilmar Prajapati PA-C Unavailable Unavail able Yaneth Gage GUTTER HANGER-METER READERS SUPERVISOR Primary Care Provide r Belen Chacon MD Primary Care Provider [phone] Yaneth Gage GUTTER HANGER-METER READERS SUPERVISOR Primary Care Provide r Massiel Troy RN Unavailable Unavailable Nohemy Andrews GUTTER HANGER-METER READERS SUPERVISOR Unavailable [phone] [facility]ian[facility]osa [facility] Unavailable [phone] Farnaz Arnett RN Unavailable Unavailable Belen Chacon MD Primary Care Provider [phone] [facility] Primary Care Provide r Encounter Details Date Type Department Care Team (Late st Contact Info) Description 08/26/2019 Lab Requisition 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 PATHOLOGY LAB Number of Blocks Received 0 09/02/2019 11:04 AM CDT [facility]OLOGY LAB Number of Slides 2 09/02/2019 11:04 AM CDT [facility] PATHOLOGY LAB Number of Control Slides 2 09/02/2019 11:04 AM CDT [facility] PATHOLOGY LAB Pathology/Cytolo gy BONE MARROW SPECIMEN / Unknown 08/25/2019 11:35 AM CDT 08/26/2019 4:04 PM CDT Gary Davis MD LAB - PATHOLOGY/CYTOLOGY ORDER ADARSH Final Result [facility] PATHOLOGY LAB [address] [facility] [place], [place] [address] [phone] documented in this encounter Visit Diagnoses Not on filedocumented in this encounter Care Teams Sustainable Design Coordinator Relationship Specialty Start Date End Date Yaneth Gage APRN-CNP [address] [place] [phone] PCP - General 11/03/19 10/03/21 Belen Chacon MD [address] [place] [phone] PCP - General Family Medicine 10/04/21 10/04/21 Yaneth Gage APRN-CNP [address] [place] [phone] PCP - General 10/05/21 08/22/22 Belen Chacon MD [address] [place] [phone] PCP - General Family Medicine 08/23/22 09/30/22 Yaneth Gage APRN-CNP [address] [place] [phone] PCP - General 10/01/22 Davi Sesay DO Hematology and Oncology 09/03/19 Saira Tejada MD [address] [place] [address] Hematology and Oncology 09/03/19 Nohemy Andrews APRN-CNP [address] [place] [address] Family Medicine 09/03/19 Kamala Hood, JR Registered Nurse 09/03/19 01/01/22 Lina Figueroa [facility] Sightseeing Guide 09/03/19 Thomas Wiggins MD Hematology and Oncology 09/03/19 01/01/22 Luis Delaney MD Hematology and Oncology 09/03/19 Christine Aguilera MD [address] [place] [address] Hematology and Oncology 09/03/19 01/26/20 Cecy Henriquez, PharmD 09/03/19 Keara Baker 09/03/19 04/30/21 Debby Rebolledo, RN Registered Nurse 09/20/19 02/26/22 Jaye Johnson, RN Registered Nurse 09/20/19 02/26/22 Irene Barton, RN Registered Nurse 09/20/19 Donna Meyers, GUTTER HANGER-LOMBARDI DEVELOPER [address] [place] [address] Oncology 09/20/19 02/26/22 Gilmar Prajapati PA-C [address] [facility] [address] [place] [address] Physician Poly Packer And Heat Sealer 09/20/19 0 Massiel Troy, RN Registered Nurse 02/27/22 Nohemy Andrews GUTTER HANGER-METER READERS SUPERVISOR Family Medicine 02/27/22 Dianna Barbosa GUTTER HANGER-METER READERS SUPERVISOR [facility] [address] [facility] [place] [address] Advance Practice Nurse Family Medicine 02/27/22 Farnaz Arnett, RN 02/27/22 documented as of this encounter
--- OUTSIDE RECORDS SUMMARY | 2025-07-13 14:59 | XMS_ITS | Clinical Summary ---
Author Organization [facility] Address [address] [place] [address] Care Team Providers Care Traffic Rate Clerk Name Role Phone Belen Chacon MD Primary Care Provide r Allergies Active Allergy Reactions Criticality Noted Date Comments Meloxicam Nausea And Vomiting,Nausea only Medium 01/01 Tramadol Itching Medium 01/11/2022 Medications lisinopril-hydr oCHLOROthiazide (Zestoretic) 20-12.5 mg per tablet Active lancets (OneTouch Delica Plus Lancet) 33 gauge [facility] [place] blood-glucose meter (OneTouch Verio Flex meter) [facility] [place] Active blood glucose diagnostic (OneTouch Verio test strips) strip Take 1 strip twice a day by miscell. route in the morning for 100 days. Active albuterol HFA (PROVENTIL HFA,VENTOLIN HFA,PROAIR HFA) 90 mcg/actuation inhaler Inhale 2 puffs 2 (two) times a day 9 Active aspirin 81 mg chewable tablet CHEW AND SWALLOW ONE TABLET BY MOUTH DAILY 2 Active atorvastatin (LIPITOR) 20 mg tablet Take 1 tablet (20 mg total) by mouth daily 9 Active chlorhexidine (HIBICLENS) 4 % external liquid Apply topically 2 (two) times a day 1 Active folic acid-vit B6-vit B12 2.2-25-1 mg tablet Take by mouth daily 0 Active Trulicity 0.75 mg/0.5 mL pen injector Inject 0.75 mg every week by subcutaneous route in the morning for 30 days, for Diabetes and weight loss. Active ergocalciferol (VITAMIN D) 50,000 unit capsule TAKE ONE CAPSULE BY MOUTH ONCE A WEEK IN THE MORNING 0 Active ferrous sulfate 325 mg (65 mg of elemental iron) tablet 0 Active furosemide (LASIX) 40 mg tablet Take 1 tablet (40 mg total) by mouth daily 9 Active gabapentin (NEURONTIN) 300 mg capsule TAKE TWO CAPSULES BY MOUTH THREE TIMES A DAY WITH MEALS 9 Active hydrOXYzine (ATARAX) 25 mg tablet hydroxyzine HCl 25 mg tablet TAKE 1 TABLET BY MOUTH TWICE A DAY NEEDED Active hydrOXYzine (VISTARIL) 25 mg capsule TAKE ONE CAPSULE BY MOUTH TWICE A DAY NEEDED 2 Active losartan (COZAAR) 100 mg tablet Take 1 tablet (100 mg total) by mouth every morning Active metFORMIN (GLUCOPHAGE) 500 mg tablet Take 1 tablet (500 mg total) by mouth 2 (two) times a day 9 Active morphine ER (MS CONTIN) 30 mg 12 hr tablet Take 1 tablet (30 mg total) by mouth every 12 (twelve) hours 4 Active morphine (MSIR) 15 mg tablet Take 1 tablet (15 mg total) by mouth every 6 (six) hours as needed 9 Active nitroglycerin (NITROSTAT) 0.4 mg SL tablet 2 Active omeprazole (PriLOSEC) 20 mg capsule Take 1 capsule (20 mg total) by mouth daily 4 Active ondansetron (ZOFRAN) 4 mg tablet Take 1 tablet (4 mg total) by mouth daily as needed 2 Active polyethylene glycol (MIRALAX) 17 gram packet DISSOLVE 1 PACKET( 17 GRAMS) IN 4 TO 8 OUNCES OF LIQUID DAILY 2 Active hydrALAZINE (APRESOLINE) 50 mg tablet Take 1 tablet (50 mg total) by mouth 3 (three) times a day 90 tablet 5 Active Active Problems No known active problems Encounters Date Type Department Care Team Description 04/21/2025 7:39 AM CDT - 04/21/2025 11:59 PM CDT Hospital Encounter [facility] [address] [place] [address] Rn, Julianb Rad Lytic bone lesions on xray; History of multiple myeloma Discharge Disposition: Discharge to home or self care 04/20/2025 12:06 AM CDT - 04/20/2025 6:[address] [facility] Emergency Department [facility] [place] [address] Juarez Arthur Jr., MD Hypertensive urgency (Primary Dx); Urinary tract infection in female; Acute nonintractable headache, unspecified headache type; Personal history of noncompliance with medical treatment and regimen Discharge Disposition: Discharge to home or self care from Last 3 Months Surgical History Surgery Date Site/Laterality Comments KNEE SURGERY 12/01/2010 - 11/30/2011 Right BLADDER SURGERY mesh placed Medical History Medical History Date Comments Diabetes mellitus (HCC) Hypertension CHF (congestive heart failure) (HCC) COPD (chronic obstructive pulmonary disease) Social History Tobacco Use Types Packs/Day Years Used Date Smoking Tobacco: Every Day Cigarettes 1 37.5 Started: 01/21/1988 Smokeless Tobacco: Never Tobacco Cessation:Ready to Q uit: Not Asked; Counseling Given: Not Answered Alcohol Use Standard Drinks/Week Comments Not Currently 0 (1 standard drink = 0.6 oz pur e alcohol) AUDIT-C Answer Date Recorded Q1: How often do you have a drink containing alcohol? Never 04/21/2025 Q2: How many drinks containi ng alcohol do you have on a typical day when you are drinking? Patient does not drink Q3: How often do you have si x or more drinks on one occasion? Never 04/21/2025 Personal Safety Answer Date Recorded Have you ever been in or are you currently in a harmful physical or emotional relationship or is someone making you feel afraid or unsafe? 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 [employer] Gender Identity Not on file Sexual Orientation Not on file Obstetrics History Last Filed Vital Signs Vital Sign Reading Time Taken Comments Blood Pressure 145/75 04/21/2025 12:39 PM CDT Pulse 82 04/21/2025 12:39 PM CDT Temperature 36.6 C (97.8 F) 04/21/2025 11:39 AM CDT Respiratory Rate 18 04/21/2025 12:39 PM CDT Oxygen Saturation 97% 04/21/2025 12:39 PM CDT Inhaled Oxygen Concentration - - Weight 124.7 kg (275 lb) 04/21/2025 9:55 AM CDT Height 157.5 cm (5' 2) 01/21/2025 8:19 AM TAPPER SHANK Body Mass Index 50.3 01/21/2025 8:19 AM TAPPER SHANK Plan of Treatment Health Maintenance Due Date Last Done Comments Breast Cancer Screening-Mammogram 1965 Cervical Cancer Screening 1965 Colon Cancer Screening-Colonoscopy 1965 Depression Screening 1965 Hepatitis C Screening 1965 Regular Well Visit/Exam 18-64 1985 Lung Cancer Screening 2017 Covid-19 Vaccine (4 - 2023-2 5 season) 2024 09/26/2021, 07/17/2021, 06/29/2021 Influenza Vaccine (#1) 2025 11/12/2023, 2018 Pneumococcal vaccine <65 (3 of 3 - PCV20 or PCV21) 02/13/2026 02/13/2021, 02/13/2021, 12/12/2020, Additional history exists DTaP/Tdap/Td Vaccine (4 - Tdap) 12/12/2030 12/12/2020, 09/08/2020, 07/07/2020 Zoster Vaccine Completed 12/12/2020, 05/17/2020 Hepatitis B Screening Completed 03/01/2022 , 02/13/2021, 09/08/2020, Additional history exists Goals Goal Patient Goal Type Associated Problems Recent Progress Patient-Stated? Author CCM Chronic Pain Care Plan Chronic Care Management Lina Hill, JR Note: Problem: Chronic Pain Goals: 1. Minimize further functional decline 2. Maximize quality of life 3. Control pain Strategies: - Activity/exercise program recommendation - Conservative stepwise pain medicine strategy with multi-disciplinary approach - Recommend healthy lifestyle strategies and compensatory methods as needed Procedures Procedure Name Priority Date/Time Associated Diagnosis Comments POCT GLUCOSE DEVICE Routine 04/21/2025 1 2:00 PM CDT SURGICAL PATHOLOGY Routine 04/21/2025 10 :26 AM CDT Lytic bone lesions on xray History of multiple myeloma CT GUIDED DEEP BONE NEEDLE BIOPSY Schedule Routine, Read Routine (OP Routine) 04/21/2025 9:43 AM CDT Lytic bone lesions on xray History of multiple myeloma POCT GLUCOSE DEVICE Routine 04/21/2025 8 :46 AM CDT PROTIME-INR Routine 04/21/2025 8:46 AM CDT Lytic bone lesions on xray History of multiple myeloma APTT Routine 04/21/2025 8:46 AM CDT Lytic bone lesions on xray History of multiple myeloma CBC WITHOUT DIFFERENTIAL Routine 04/21/2025 8:46 AM CDT Lytic bone lesions on xray History of multiple myeloma [place] [facility] ILL/INJURED PATIENT INIT 30-74 MIN Routine 04/20/2025 6:11 AM CDT EGFR Timed 04/20/2025 12:18 AM CDT COMPREHENSIVE METABOLIC PANEL Timed 04/20/2025 12:18 AM CDT TROPONIN T HIGH-SENSITIVITY 2-HOUR Timed 04/20/2025 12:18 AM CDT TROPONIN T HIGH-SENSITIVITY SERIES (BASELINE, 2HR, 4HR, 6HR) STAT 04/19/2025 10:00 PM CDT XR CHEST 1 VIEW ED 04/19/2025 9:04 PM CDT DIFFERENTIAL AUTO STAT 04/19/2025 8:5 2 PM CDT CBC WITH AUTO DIFFERENTIAL STAT 04/19/2025 8:52 PM CDT URINALYSIS, MICROSCOPIC ONLY STAT 04/19/2025 8:48 PM CDT URINE CULTURE STAT 04/19/2025 8:48 PM CDT URINALYSIS AND REFLEX TO MICROSCOPIC AND CULTURE STAT 04/19/2025 8:48 PM CDT ECG 12-LEAD STAT 04/19/2025 8:34 PM CDT from Last 3 Months Results * POCT glucose (04/21/2025 12:00 PM CDT) Glucose, POC 143 70 - 199 mg/dL Glucose comment 1 RN/MD Notified FRANK FAN Blood 04/21/2025 12:0 0 PM CDT 04/21/2025 12:00 PM CDT us Davi Sesay DO LAB POCT ORDERABLES - DEVICE Final Result FRANK [address] Department [place] [address] * Surgical pathology (04/21/2025 10:26 AM CDT) Tissue (Bone - Biopsy / Curettings) 04/21/2025 10:26 AM CDT Narrative PATHOLOGY [facility] - 04/28/2025 1:[address] [facility] Department of Pathology [address] [place] [id number] Note to Patients: This report may contain a detailed description of human tissue sent by a health care provider to the laboratory for pathologic evaluation. The content of this report is essential for diagnosis and may provide important critical findings. This information may be unfamiliar to patients to review without a medical professional present. It is advised that the patient review this report in the presence of a health care provider who can answer questions and explain the details. Final Report Patient Name: LORI GOLDEN : 1965 (Age: 59) Gender: F Address: [address] [place] [address] Hospital #: [id number] Service: UNKNOWN Location: Patient Type: [facility] Taken: 04/21/2025 Received: 04/21/2025 Accessioned: 04/21/2025 Reported: 04/28/2025 Physician(s): Minerva Luna D.O. Dolores J. Gunn, M.D. Diagnosis: Bone, right iliac, core biopsy: - Bone with normal bone marrow hematopoietic elements - No increase in plasma cells - see comment Diagnosis Comment: No definitive evidence of plasma cell neoplasm is noted in sampled tissue. Deep Adams M.D. Report Electronically Reviewed and Signed Out By Deep Adams M.D. 04/28/2025 13:26:08 Specimen(s) Received: A: core right iliac bone biopsy Microscopic Description: Sections show bone marrow core with hematopoietic elements composed of erythroids, megakaryocytes and granulocytic elements showing progressive maturation. No atypical plasma cell infiltrates are identified. A panel of immunohistochemical stains and in-situ hybridization studies with appropriate positive controls is performed to study plasma cell distribution in tissue context. CD138 and MUM-1 show no significant plasma cell infiltrate (<2%). CD19 and CD20 highlight rare scattered B-cells. CD3 highlights T-cells which are not increased. CD56 highlights rare NK cells. Ki-67 shows a high proliferative index of >90%, as expected in normal bone marrow. In-situ hybridization studies for kappa and lambda light chains show no definitive evidence of clonality due to paucity of plasma cells. Sections show bone marrow core with hematopoietic elements composed of erythroids, megakaryocytes and granulocytic elements showing progressive maturation. No atypical plasma cell infiltrates are identified. A panel of immunohistochemical stains and in-situ hybridization studies with appropriate positive controls is performed to study plasma cell distribution in tissue context. CD138 and MUM-1 show no significant plasma cell infiltrate (<2%). CD19 and CD20 highlight rare scattered B-cells. CD3 highlights T-cells which are not increased. CD56 highlights rare NK cells. Ki-67 shows a high proliferative index of >90%, as expected in normal bone marrow. In-situ hybridization studies for kappa and lambda light chains show no definitive evidence of clonality due to paucity of plasma cells. Clinical History: The patient is a 59-year-old woman with lytic bone lesions on x-ray and a history of multiple myeloma. Operative procedure: CT-guided right iliac bone biopsy. Gross Description Received in formalin, labeled with the patient s identifiers and core right iliac bone biopsy and consists of a 2.3 cm in length by 0.2 cm in diameter, newberry-red, focally disrupted, cylindrical bone core. The specimen is entirely submitted following decalcification in EDTA. Labeled A1. Jar 0. jjb/04/21/2025 13:46 ROCCO Deshpande, MARYSOL ([facility]) Microscopic slide review and interpretation for this case was performed at [facility] Department of Surgical Pathology, [address] [facility] [place], [place] [id number] [address] CLIA # [id number] The MUM1 Protein test was performed at [facility] Department of Surgical Pathology, [address] [place] [address]. The [place] test was performed at [facility] Department of Surgical Pathology, [place] [address]. The Lambda test was performed at [facility] Department of Surgical Pathology, [place] [address]. The CD56 test was performed at [facility] Department of Surgical Pathology, [place] [address]. The CD19 IHC test was performed at [facility] Department of Surgical Pathology, [place] [address]. The Ki-67 test was performed at [facility] Department of Surgical Pathology, [place] [address]. us Davi Sesay DO LAB PATHOLOGY ORDERABLES Debi delatorre Result PATHOLOGY [facility] * CT Guided Deep Bone Needle Biopsy (04/21/2025 9:43 AM CDT) Anatomical Region Laterality Modality Body N/A Computed Tomogra phy, Computed Radiography 04/21/2025 11:2 3 AM CDT Narrative 04/21/2025 11:27 AM CDT EXAM DESCRIPTION: CT GUIDED DEEP BONE NEEDLE BIOPSY REASON FOR STUDY: multiple myeloma, LYTIC LESION OF BONE Computed tomography guided right iliac bone biopsy COMPARISON: PET-CT 10/27/2024 PERFORMING PROVIDER: Ti Quintero MD. ANESTHESIA: 1. Local Anesthesia: 15 mL 1% lidocaine 2. IV conscious Sedation: 2 mg Versed , 100 mcg Fentanyl 3. Sedation time: 47 minutes. TECHNIQUE/FINDINGS: The procedure and complications were discussed with the patient and informed consent by the patient was obtained. The patient was placed prone and a limited CT of the pelvis was performed. A radiopaque marker was placed over the region of interest. A timeout was performed to verify patient identity and procedure. The patient was monitored before, during and after the procedure by a qualified radiology nurse . Conscious sedation was administered as described above. The site was prepped and draped in a sterile fashion. Local anesthesia was provided at the cutaneous surface and along the biopsy track. An 11 gauge needle introducer was advanced in stages under CT guidance into the posterior right iliac bone. Needle placement was documented with CT images. One 13 gauge core sample was obtained using the [employer] system. The samples were sent to the pathology service. Final pathology is pending. A final post biopsy image demonstrated no significant complications. CT imaging performed using dose optimization techniques as appropriate to exam in accordance with CT guided procedure protocols. The patient tolerated the procedure well. The patient was transferred to the holding area in stable condition. IMPRESSION: Successful CT-guided core biopsy of the right posterior iliac bone. THIS IS AN ELECTRONICALLY VERIFIED FINAL REPORT 04/21/2025 11:27 AM - Electronically signed by Ti Quintero M.D. KR T: Report ID: [id number] Reading Location: [id number] Procedure Note Ti Quintero MD - 04/21/2025 EXAM DESCRIPTION: CT GUIDED DEEP BONE NEEDLE BIOPSY REASON FOR STUDY: multiple myeloma, LYTIC LESION OF BONE Computed tomography guided right iliac bone biopsy COMPARISON: PET-CT 10/27/2024 PERFORMING PROVIDER: Ti Quintero MD. ANESTHESIA: 1. Local Anesthesia: 15 mL 1% lidocaine 2. IV conscious Sedation: 2 mg Versed , 100 mcg Fentanyl 3. Sedation time: 47 minutes. TECHNIQUE/FINDINGS: The procedure and complications were discussed withthe patient and informed consent by the patient was obtained. The patient was placed prone and a limited CT of the pelvis was performed. A radiopaque marker was placed over the region of interest. A timeout was performed to verify patient identity and procedure. The patient was monitored before, during and after the procedure by a qualified radiology nurse . Conscious sedation was administered asdescribed above. The site was prepped and draped in a sterile fashion. Local anesthesiawas provided at the cutaneous surface and along the biopsy track. An 11gauge needle introducer was advanced in stages under CT guidance into theposterior right iliac bone. Needle placement was documented with CT images. One 13 gauge core sample was obtained using the [employer]well[employer] system. Thesamples were sent to the pathology service. Final pathology is pending. A finalpost biopsy image demonstrated no significant complications. CT imagingperformed using dose optimization techniques as appropriate to exam in accordancewith CT guided procedure protocols. The patient tolerated the procedure well. [facility] condition. IMPRESSION: Successful CT-guided core biopsy of the right posterior iliac bone. THIS IS AN ELECTRONICALLY VERIFIED FINAL REPORT 04/21/2025 11:27 AM - Electronically signed by Ti Quintero M.D. T: Report ID: [id number] Reading Location: [id number] Davi Sesay DO IMG CT PROCEDURES Final Resul t * POCT glucose (04/21/2025 8:46 AM CDT) Glucose, POC 134 70 - 199 mg/dL Blood 04/21/2025 8:46 AM CDT 04/21/2025 8:46 AM CDT Davi Sesay DO LAB POCT ORDERABLES - DEVICE Final Result Performing Organization Address [facility] Co de Phone Number FRANK [address] [place] [employer] [place] [address] * aPTT (04/21/2025 8:46 AM CDT) aPTT 30 22 - 37 sec Comment: Interpretive data aPTT test has not been evaluated for monitoring heparin therapy. The anti-Xa is the preferred test. Current interpretive data was last revised on 2019. Blood Venous blood specimen / Unknown 04/21/2025 8:46 AM CDT 04/21/2025 8:53 AM CDT Davi Sesay DO LAB BLOOD ORDERABLES Final Re sult Performing Organization Address [facility] Co de Phone Number FRANK [address] [place] [employer] [place] [address] * Protime-INR (04/21/2025 8:46 AM CDT) PT 14.0 12.0 - 14.6 sec INR 1.1 0.9 - 1.2 FRANK Comment: Ref Range High Interpretive data Oral anticoagulant therapeutic ranges: Venous thromboembolism prophylaxis or treatment: 2.0-3.0 CARDIOLOGY Standard range: 2.0-3.0 High-intensity range: 2.5-3.5 Refer to indication-specific guidelines for appropriate target ranges for prosthetic heart valve replacement. Current interpretive data was last revised on 2019. Blood Venous blood specimen / Unknown 04/21/2025 8:46 AM CDT 04/21/2025 8:53 AM CDT Davi Sesay DO LAB BLOOD ORDERABLES Final Re sult Performing Organization Address [facility] Co de Phone Number FRANK [address] [place] [employer] [place] [address] * (ABNORMAL) CBC without differential (04/21/2025 8:46 AM CDT) WBC 9.45 3.80 - 9.90 K/cumm Hgb 15.6(H) 11.9 - 15.5 g/dL [facility] Hct 49.8(H) 35.6 - 45.5 % [facility] Plt 169 150 - 400 K/cumm [facility] MPV 11.1 9.1 - 12.3 fL [facility] RBC 5.75(H) 3.90 - 5.20 M/cumm [facility] MCV 86.6 81.3 - 96.4 fL [facility] MCH 27.1 27.1 - 33.3 pg [facility] MCHC 31.3(L) 32.3 - 35.7 g/dL [facility] RDW CV 14.6 11.1 - 14.9 % [facility] RDW SD 45.5 35.7 - 48.1 fL [facility] NRBC abs 0.00 0.00 - 0.01 K/cumm [facility] Blood Venous blood specimen / Unknown 04/21/2025 8:46 AM CDT 04/21/2025 8:53 AM CDT us Davi Sesay DO LAB BLOOD ORDERABLES Final Re sult Performing Organization Address City/State/[facility] Co de Phone Number FRANK [address] [facility] Department [place] [address] * [place] CRITICAL CARE ILL/INJURED PATIENT INIT 30-74 MIN (04/20/2025 6:11 AM CDT) Narrative Juarez Arthur Jr., MD - 04/20/2025 6:11 AM CDT Juarez Arthur Jr., MD 04/22/2025 8:23 AM Critical Care Performed by: Juarez Arthur Jr., MD Authorized by: Juarez Arthur Jr., MD Critical care provider statement: As reflected in the history, physical exam, orders, notes, and/or MDM, I was personally present while the patient was critically ill and provided critical care services for 45 minutes, excluding time involved in separately billable procedures. Critical care was necessary to treat or prevent imminent or life-threatening deterioration of the following condition(s): hypertensive crisis dehydration and severe metabolic condition Critical care was time spent by me providing the following: continuous telemetry, continuous pulse oximetry, interpretation of bedside monitors, imaging, and arterial/venous lab draws, serial bedside patient exams and serial laboratory checks initiation and active titration of vasoactive medications I provided emergent necessary critical care medicine services to this patient. I ordered and reviewed test results and/or imaging studies. I spent time discussing the management of this critically ill patient with consultants and the medical staff. I spent time discussing the management and therapeutic options for this critically ill patient with the patient themselves or with the appropriate designated surrogate decision-maker. I spent time documenting in the medical record. us Juarez Arthur Jr., MD IN CLINIC/BEDSIDE ORDER ADARSH Final Result * Troponin T high-sensitivity 2-hour (04/20/2025 12:18 AM CDT) [facility] Trop T hs 8 <=14 ng/L Comment: Interpretive Data For further hscTnT resources including the diagnostic algorithm and an aid in interpretation, copy and paste this link: [email or web address].testcatalog.org/show/[email or web address] Current Interpretive Data last revised 2020. Testing performed by: [address] [address] Trop T hs delta 0 ng/L FRANK Comment:Testing performed by : [address] [address] Trop T hs interp Insignificant FRANK Comment:Testing performed by : [address] [address] Blood 04/20/2025 12:1 8 AM CDT 04/20/2025 12:22 AM CDT us Rao Sotelo MD LAB BLOOD ORDERABLES F inal Result [facility] [address] [facility] Department [place] [address] * eGFR (04/20/2025 12:18 AM CDT) [facility] eGFR >90 >=60 mL/min/1. 73 m2 Comment: Interpretive Data Reference Interval Normal >/= 90 mL/min/1.73m2 Mildly decreased* 60 - 89 mL/min/1.73m2 Mildly to moderately decreased 45 - 59 mL/min/1.73m2 Moderately to severely decreased 30 - 44 mL/min/1.73m2 Severely decreased 15 - 29 mL/min/1.73m2 Kidney Failure < 15 mL/min/1.73m2 *Relative to young adult level Estimated glomerular filtration rate is determined by the 2020 CKD-EPI equation recommended by the National Kid[employer] (A Unifying Approach to GFR Estimation: Recommendations of the NKF-ASK Task Force on Reassessing the Inclusion of Race in Diagnosing Kidney Disease, JASN 2020). The CKD-EPI equation should not be used for patients with unstable renal function and has not been validated in children and those over 70. Current interpretive data was last reviewed 2021. Testing performed by: [address] [address] Blood 04/20/2025 12:1 8 AM CDT 04/20/2025 12:22 AM CDT us Juarez Arthur Jr., MD LAB BLOOD ORDERABLES Fi nal Result FRANK [address] [facility] Department [place] [address] * Comprehensive metabolic panel (04/20/2025 12:18 AM CDT) Sodium 144 135 - 145 mmol/L Comment:Testing performed by : [address] [address] Potassium, pl 3.9 3.3 - 4.9 mmol/L FRANK FAN Comment: Hemolyzed; Potassium value may be falsely elevated by as much as 1.0 mmol/L. Suggest redraw and reanalysis. Testing performed by: [address] [address] Chloride 108 97 - 110 mmol/L FRANK FAN Comment:Testing performed by : [address] [address] CO2 23 22 - 32 mmol/L FRANK Comment:Testing performed by : [address] [address] Anion gap 13 2 - 15 mmol/L FRANK Comment:Testing performed by : [address] [address] BUN 10 6 - 25 mg/dL FRANK Comment:Testing performed by : [address], [place]., [address] Creatinine 0.70 0.60 - 1.10 mg/dL FRANK Comment:Testing performed by : [address] [address] Glucose 138 70 - 199 mg/dL FRANK Comment: Interpretive Data Fasting glucose >/= 126 mg/dl is diagnostic for diabetes. Fasting is defined as no caloric intake for at least 8 hours. Fasting glucose between 100 mg/dl to 125 mg/dl is diagnostic of prediabetes. In a patient with classic symptoms of hyperglycemia or hyperglycemic crisis, a random glucose >/= 200 mg/dl is diagnostic for diabetes. In the absence of unequivocal hyperglycemia, results should be confirmed by repeat testing. The classification and Diagnosis of Diabetes Diabetes Care 2021; 46: S19-S40. Current interpretive data was last revised 2022. Testing performed by: [address] [address] Calcium 9.5 8.5 - 10.3 mg/dL FRANK Comment:Testing performed by : [address] [address] Bilirubin, total 0.3 0.1 - 1.2 mg/dL FRANK Comment:Testing performed by : [address] [address] Protein, pl 7.3 6.5 - 8.5 g/dL FRANK Comment:Testing performed by : [address] [address] Albumin 4.0 3.5 - 5.0 g/dL FRANK Comment:Testing performed by : [address] [address] Alk phos 86 40 - 130 Units/L FRANK Comment:Testing performed by : [address] [address] ALT 13 7 - 45 Units/L FRANK FAN Comment:Testing performed by : [address] [address] AST 17 10 - 45 Units/L FRANK FAN Comment: Hemolyzed; result may be falsely elevated Testing performed by: [address] [address] Blood 04/20/2025 12:1 8 AM CDT 04/20/2025 12:22 AM CDT us Juarez Arthur Jr., MD LAB BLOOD ORDERABLES Fi nal Result Performing Organization Address [facility] Co de Phone Number CATAL[address] [place] [address] * Troponin T high-sensitivity series (baseline, 2hr, 4hr, 6hr) (04/19/2025 10:00 PM CDT) Trop T hs 8 <=14 ng/L Comment: Interpretive Data For further hscTnT resources including the diagnostic algorithm and an aid in interpretation, copy and paste this link: https://nrl.testcatalog.org/show/hsTrop Current Interpretive Data last revised 2020. Testing performed by: [address] [address] Blood 04/19/2025 10:0 0 PM CDT 04/19/2025 10:15 PM CDT us Juarez Arthur Jr., MD LAB BLOOD ORDERABLES Fi nal Result Performing Organization Address [facility] Co de Phone Number [address] [place] [address] * XR Chest 1 Vw Portable (if patient condition/safety warrant portable) (04/19/2025 9:04 PM CDT) Anatomical Region Laterality Modality Body, Chest N/A Computed Radiogr aphy 04/19/2025 9:55 PM CDT Narrative 04/19/2025 9:56 PM CDT EXAM DESCRIPTION: XR CHEST 1 VIEW REASON FOR STUDY: chest pain Pt states went to Urgent care for urinary symptoms, pt states was told she had a UTI but my blood pressure was yariel high so they told me to come to the ED and you would treat both, pt states on the drive over I started having chest pain TECHNIQUE: Portable upright AP view of the chest. COMPARISON: 09/12/2023 FINDINGS: LUNGS AND PLEURA: No focal opacity, large effusion, or pneumothorax identified. HEART/MEDIASTINUM: Trachea midline. Cardiac silhouette normal in size. Mediastinal contours appear normal. BONES: Shoulder arthritis. CHEST WALL: Unremarkable. UPPER ABDOMEN: Unremarkable. IMPRESSION: No acute abnormality identified within limits of low inspiratory volume portable technique. THIS IS AN ELECTRONICALLY VERIFIED FINAL REPORT 04/19/2025 9:56 PM - Electronically signed by Fabien Rudolph M.D. AR: PACO Report ID: [id number] Reading Location: [place] [address] Procedure Note Fabien Rudolph MD - 04/19/2025 EXAM DESCRIPTION: XR CHEST 1 VIEW REASON FOR STUDY: chest pain Pt states went to Urgent care for urinary symptoms, pt states was told shehad a UTI but my blood pressure was yariel high so they told me to come to theED and you would treat both, pt states on the drive over I started havingchest pain TECHNIQUE: Portable upright AP view of the chest. COMPARISON: 09/12/2023 FINDINGS: LUNGS AND PLEURA: No focal opacity, large effusion, orpneumothorax identified. HEART/MEDIASTINUM: Trachea midline. Cardiac silhouette normal in size. Mediastinal contours appear normal. BONES: Shoulder arthritis. CHEST WALL: Unremarkable. UPPER ABDOMEN: Unremarkable. IMPRESSION: No acute abnormality identified within limits of lowinspiratory volume portable technique. THIS IS AN ELECTRONICALLY VERIFIED FINAL REPORT 04/19/2025 9:56 PM - Electronically signed by Fabien Rudolph M.D. AR: PACO Report ID: [id number] Reading Location: [place] [address] Juarez Arthur Jr., MD IMG XR PROCEDURES Final Result * (ABNORMAL) Differential, auto (04/19/2025 8:52 PM CDT) Neutrophil abs 6.11 1.50 - 6.50 K/cumm Comment:Testing performed by : [address] [address] Imm gran abs 0.05 0.00 - 0.10 K/cumm FRANK Comment:Testing performed by : [address] [address] Lymphocyte abs 2.72 0.80 - 3.30 K/cumm FRANK Comment:Testing performed by : [address] [address] Monocyte abs 0.87(H) 0.20 - 0.80 K/cumm FRANK Comment:Testing performed by : [address] [address] Eosinophil abs 0.16 0.00 - 0.50 K/cumm FRANK Comment:Testing performed by : [address] [address] Basophil abs 0.05 0.00 - 0.10 K/cumm [facility] Comment:Testing performed by : [address] [address] Neutrophil pct 61.4 % [facility] Comment: Interpretive Data Percent cell count reference ranges are not reported, since discordance with absolute values may lead to misinterpretation of CBC data. Current Interpretive Data was last revised on 2018. Testing performed by: [address] [address] Imm gran pct 0.5 % FRANK Comment: Interpretive Data Percent cell count reference ranges are not reported, since discordance with absolute values may lead to misinterpretation of CBC data. Current Interpretive Data was last revised on 2018. Testing performed by: [address] [address] Lymphocyte pct 27.3 % FRANK Comment: Interpretive Data Percent cell count reference ranges are not reported, since discordance with absolute values may lead to misinterpretation of CBC data. Current Interpretive Data was last revised on 2018. Testing performed by: [address] [address] Monocyte pct 8.7 % FRANK Comment: Interpretive Data Percent cell count reference ranges are not reported, since discordance with absolute values may lead to misinterpretation of CBC data. Current Interpretive Data was last revised on 2018. Testing performed by: [address] [address] Eosinophil pct 1.6 % FRANK Comment: Interpretive Data Percent cell count reference ranges are not reported, since discordance with absolute values may lead to misinterpretation of CBC data. Current Interpretive Data was last revised on 2018. Testing performed by: [address] [address] Basophil pct 0.5 % FRANK Comment: Interpretive Data Percent cell count reference ranges are not reported, since discordance with absolute values may lead to misinterpretation of CBC data. Current Interpretive Data was last revised on 2018. Testing performed by: [address] [address] Blood 04/19/2025 8:52 PM CDT 04/19/2025 8:56 PM CDT us Juarez Arthur Jr., MD LAB BLOOD ORDERABLES nal Result FRANK [address] [facility] Department of Laboratories [place], [place] [id number] * (ABNORMAL) CBC with auto differential (04/19/2025 8:52 PM CDT) WBC 9.96(H) 3.80 - 9.90 K/cumm Comment:Testing performed by : [address] [address] Hgb 16.2(H) 11.9 - 15.5 g/dL FRANK Comment:Testing performed by : [address], [address] Hct 48.9(H) 35.6 - 45.5 % FRANK Comment:Testing performed by : [address] [address] Plt 163 150 - 400 K/cumm FRANK Comment:Testing performed by : [address] [address] MPV 10.8 9.1 - 12.3 fL FRANK Comment:Testing performed by : [address] [address] RBC 5.88(H) 3.90 - 5.20 M/cumm FRANK Comment:Testing performed by : [address], [address] MCV 83.2 81.3 - 96.4 fL FRANK Comment:Testing performed by : [address] [address] MCH 27.6 27.1 - 33.3 pg FRANK Comment:Testing performed by : [address] [address] MCHC 33.1 32.3 - 35.7 g/dL FRANK Comment:Testing performed by : [address], [address] RDW CV 14.4 11.1 - 14.9 % FRANK Comment:Testing performed by : [address], [address] RDW SD 42.9 35.7 - 48.1 fL FRANK Comment:Testing performed by : [address] [address] NRBC abs 0.00 0.00 - 0.01 K/cumm FRANK Comment:Testing performed by : [address] [address] Blood Venous blood specimen / Unknown 04/19/2025 8:52 PM CDT 04/19/2025 8:56 PM CDT Juarez Arthur Jr., MD LAB BLOOD ORDERABLES Fi nal Result FRANK [address] [facility] Department [place] [address] * (ABNORMAL) Urinalysis reflex to microscopic and culture Urine (04/19/2025 8:48 PM CDT) Color, ur Yellow Yellow Comment:Testing performed by : [address] [address] Clarity, ur Cloudy(A) Clear FRANK Comment:Testing performed by : [address] [address] Specific gravity, ur 1.025 1.003 - 1.030 FRANK Comment:Testing performed by : [address] [address] pH, urine 8.0 FRANK Comment: Interpretive Data U rine pH is affected by diet, medications, systemic acid-base disturbances, and renal tubular function. pH may affect urinary stone formation. For example, urine pH below 6.0 may help reduce the tendency for calcium phosphate stones and pH greater than 6.0 may reduce the tendency for uric acid stone formation. Source: [facility] [employer] Current Interpretive Data was last revised on 2017 Testing performed by: [address] [address] Protein, ur ql 1+(A) Negative FRANK Comment:Testing performed by : [address] [address] Glucose, ur ql Negative Negative FRANK Comment:Testing performed by : [address] [address] Ketones, ur Negative Negative FRANK FAN Comment:Testing performed by : [address] [address] Bilirubin, ur Negative Negative FRANK Comment:Testing performed by : [address] [address] Blood, ur Negative Negative FRANK Comment:Testing performed by : [address] [address] Urobilinogen, ur <2.0 <2.0 mg/dL FRANK Comment:Testing performed by : [address] [address] Nitrite, ur Positive(A) Negative FRANK Comment:Testing performed by : [address] [address] Leukocyte esterase, ur 2+(A) Negative FRANK Comment:Testing performed by : [address] [address] UA reflex comment Reflex to microscopic UA will be performed. FRANK Comment:Testing performed by : [address], [place]., [address] Urine 04/19/2025 8:48 PM CDT 04/19/2025 8:50 PM CDT Juarez Arthur Jr., MD LAB MICROBIOLOGY - GENE RAL ORDERABLES Final Result Performing Organization Address City/State/[facility] Co de Phone Number FRANK [address] Department [place] [address] * (ABNORMAL) Urinalysis, microscopic only (04/19/2025 8:48 PM CDT) WBC, ur 21-50(A) 0 - 5 /HPF Comment:Testing performed by : [address] [address] RBC, ur 3-5(A) 0 - 2 /HPF FRANK Comment:Testing performed by : [address] [address] Epithelial cells, squamous, ur >50(A) 0 - 5 /HPF FRANK Comment:Testing performed by : [address] [address] Bacteria, ur 3+(A) FRANK Comment:Testing performed by : [address] [address] Mucous, ur Present(A) FRANK Comment:Testing performed by : [address] [address] Hyaline casts, ur 1-5 0 - 10 /LPF FRANK FAN Comment:Testing performed by : [facility], [address] [place] [address]., [address] Culture Reflex Comment Reflex to urine culture will be performed. FRANK Comment:Testing performed by : [facility], [address] [place] [address]., [address] Urine 04/19/2025 8:48 PM CDT 04/19/2025 8:50 PM CDT us Juarez Arthur Jr., MD LAB URINE ORDERABLES Fi nal Result FRANK [facility] Department [place] [address] * (ABNORMAL) Urine culture Urine (04/19/2025 8:48 PM CDT) Report Final Report: Greater than or equal to 100,000 colonies/mL of Escherichia coli Plus growth of clinically insignificant bacterial ivan. (.) Comment:Testing performed by : [facility], [address] [place]., [address] Organism ESCHERICHIA COLI FRANK Organism PLUS GROWTH OF CLINICALLY INSIGNIFICANT IVAN. FRANK Urine 04/19/2025 8:48 PM CDT 04/20/2025 1:21 AM CDT Narrative FRANK - 04/22/2025 6:28 AM CDT Urine culture reflexed based upon urinalysis results. Testing performed by [facility] Microbiology Laboratory ([phone]) Organism Antibiotic Method Susceptibility Escherichia coli Ampicillin INTERPRETATION Resistant Escherichia coli Cefazolin INTERPRETATION Susceptible Escherichia coli Nitrofurantoin INTERPRETATION Susceptible Escherichia coli Gentamicin INTERPRETATION Susceptible Escherichia coli Trimethoprim with Sulfamethoxazole IN TERPRETATION Susceptible Escherichia coli Meropenem INTERPRETATION Susceptible Escherichia coli Cefepime INTERPRETATION Susceptible Escherichia coli Ciprofloxacin INTERPRETATION Susceptible Escherichia coli Ceftazidime INTERPRETATION Susceptible Escherichia coli Ceftriaxone INTERPRETATION Susceptible Escherichia coli Piperacillin/Tazobactam INTERPRETATIO N Susceptible Escherichia coli Cephalexin INTERPRETATION Susceptible Escherichia coli Cefuroxime-axetil INTERPRETATION Susceptible Escherichia coli Cefdinir INTERPRETATION Susceptible us Rao Sotelo MD LAB MICROBIOLOGY - GEN ERAL ORDERABLES Final Result FRANK [address] [facility] Department [place] [address] * ECG 12 lead (04/19/2025 8:34 PM CDT) Ventricular Rate EKG/Min 115 BPM [facility] Atrial Rate 115 BPM [facility] [place]-Interval (MSEC) 146 ms [facility] QRS-Interval (MSEC) 82 ms [facility] QT-Interval (MSEC) 324 ms [facility] QTc 448 ms [facility] P [place] 63 degrees [facility] R [place] 28 degrees [facility] T [place] 27 degrees [facility] Diagnosis Sinus tachycardia Possible Left atrial enlargement Borderline ECG When compared with ECG of 12-SEP-2023 20:25, No significant change was found Confirmed by MICHAEL DAMON M.D. ([id number]) on 04/20/2025 8:12:44 PM [facility] 04/19/2025 8:34 PM CDT 04/20/2025 8:12 PM CDT us Juarez Arthur Jr., MD ECG ORDERABLES Final R esult Performing Organization Address City/[facility] Co de Phone Number [facility] from Last 3 Months Insurance [facility] Advance Directives For more information, please contact: [phone] * Full Code (Latest Code Status on File) Date Activated Date Inactivated Comments 04/21/2025 10:43 AM 04/22/2025 4:56 AM Care Teams Traffic Rate Clerk Relationship Specialty Start Date End Date Belen Chacon MD [address] [place] [address] PCP - General 02/19/21
--- OUTSIDE RECORDS SUMMARY | 2025-07-13 14:59 | XMS_ITS | Encounter Summary ---
Author Organization [facility] Address [address] [place] [address] Phone Care Team Providers Care Supervisor Fertilizer Name Role Phone Yaneth Gage APRN, CNP Primary Care Provid er Davi Sesay DO Unavailable [phone] Saira Tejada MD Unavailable [phone] Reason for Visit * Reason Onset Date Comments appeal decision 07/13/2025 Encounter Details Date Type Department Care Team (Late st Contact Info) Description 07/13/2025 Telephone [facility] [address] [place] [address] Davi Sesay, DO [address] [place] [address] appeal decision Social History Tobacco Use Types Packs/Day Years [...] Recorded Total Score - Questions 1-9 19 10/12/2023 Sexually Active Control Partners Comments Yes Male Comments No Sex and Gender Information Value Date Recorded Sex Assigned at Not on file Legal Sex Female 9:35 AM CDT Gender Identity Not on file Sexual Orientation Not on file documented as of this encounter Miscellaneous Notes * Telephone Encounter - Cami Ricketts LPN - 07/13/2025 2:39 PM CDT Spoke to Bri with [facility] regarding denial received for oxycodone (tracking number [id number]). Per Sarah Tanner DENTAL CHAIR ASSEMBLER explained ok for 60 tablets per 15 days since plan only allows 120 tablets per 30 days. Bri stated she submitted medication as stated above and it is covered, and to have pharmacy run medication through. Spoke to staff with [facility] pharmacy explained per Sarah ok for oxycodone 60 tablet per 15 days. Staff voiced understanding. Staff stated patient did already scrap picker medication with a coupon card. documented in this encounter Plan of Treatment Upcoming Encounters Date Type Department Care Team (Late st Contact Info) Description 07/26/2025 10:35 AM CDT Lab [facility] [address] [phone] Lab, [facility] 07/26/2025 10:45 AM CDT Office Visit [facility] [address] [phone] Davi Sesay, [address] [place] [phone] documented as of this encounter Visit Diagnoses Not on filedocumented in this encounter Additional Health Concerns Assessment Noted Time PHQ-9 Depression Total Score: 19 024 2:33 PM CDT documented as of this encounter Care Teams Supervisor Fertilizer Relationship Specialty Start Date End Date Yaneth Gage APRN, PIERCE [address] [place] [address] PCP - General Certified Nurse Practitioner 06/30/19 Davi Sesay DO [address] [place] [address] Consulting Physician Oncology 07/05/19 Saira Tejada MD [address] [place] [address] Consulting Physician 09/06/19 documented as of this encounter
--- OUTSIDE RECORDS SUMMARY | 2025-07-13 14:59 | XMS_ITS | Encounter Summary ---
Author Organization [facility] Address [address] [place] [address] Phone Care Team Providers Care Electric Meter Tester Helper Name Role Phone Yaneth Gage APRN, CNP Primary Care Provid er Davi Sesay DO Unavailable [phone] Saira Tejada MD Unavailable [phone] Reason for Visit * Reason Comments Medication Refill Encounter Details Date Type Department Care Team (Late st Contact Info) Description 12/25/2023 Refill [facility] [address] [place] [address] Rachell Brooks APRN, CNP [address] [place] [address] Medication Refill Social History Tobacco Use Types [...] 10:35 AM CDT Lab [facility] [address] [address] Lab, [facility] 07/26/2025 10:45 AM CDT Office Visit [facility] [address] [address] Davi Sesay DO [address] [place] [phone] documented as of this encounter Visit Diagnoses Diagnosis Constipation, unspecified constipation type documented in this encounter Additional Health Concerns Assessment Noted Time PHQ-9 Depression Total Score: 18 022 8:49 AM RAM PRESS OPERATOR documented as of this encounter Care Teams Electric Meter Tester Helper Relationship Specialty Start Date End Date Yaneth Gage APRN, TIRE CHANGER [address] [place] [address] PCP - General Certified Nurse Practitioner 06/30/19 Davi Sesay DO [address] [place] [address] Consulting Physician Oncology 07/05/19 [place] [address] [place] [address] Consulting Physician 09/06/19 documented as of this encounter
--- OUTSIDE RECORDS SUMMARY | 2025-07-13 14:59 | XMS_ITS ---
Author Organization [facility] Address [address] [place] [address] Care Team Providers Care Stewarding Supervisor Name Role Phone Davi Sesay DO Unavailable Saira Tejada MD Unavailable [phone] Juliana, Nohemy Singletary LICENSED PSYCHOLOGIST-MECHANICAL ARTIST Unavailable [phone] Lina Figueroa LCSW Unavailable Unavailab Luis Rodarte MD Unavailable [phone] Cecy Henriquez PharmD Unavailable Unavaila Irene Baptiste RN Unavailable Unavaila Massiel Adames RN Unavailable Unavailable Nohemy Andrews APRN-MECHANICAL ARTIST Unavailable [phone] Dianna Barbosa APRN-MECHANICAL ARTIST Unavailable [phone] Farnaz Arnett RN Unavailable Unavailable Yaneth Gage LICENSED PSYCHOLOGIST-[facility] Primary Care Provide r Active Problems Problem Noted Date Diagnosed Date Hidradenitis 02/05/2021 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 Nausea and vomiting 01/02/2020 CHF (congestive heart failure) 10/29/2019 Type 2 diabetes mellitus 09/20/2019 Hypertension 09/20/2019 Multiple myeloma 09/03/2019 Lytic lesion of bone on x-ray 07/12/2019 Current Treatment and Therapy Plans BMT CONDITIONING [id number] SCHEMA A - MELPHALAN 100 MG/M2* Plan Start Date:01/03/2020 Plan Provider:Donna Meyers APRN-DIRECTOR TRANSITION Linked Problems Multiple myeloma, remission status unspecified (HCC) Treatment Medications Current Day (Day 1 3, Post-Transplant - Planned for 01/19/2020) Next Day (Day 14, Post-Transplant - Planned for 01/20/2020) melphalan (Alkeran) infusion No medications scheduled. No medications scheduled. BMT HPC SUPPORTIVE CARE?[facility] USE ONLY* Plan Start Date:10/18/2019 Plan Provider:Nohemy Andrews APRN-MECHANICAL ARTIST Linked Problems Multiple myeloma, remission status unspecified (HCC) Treatment Medications No medications scheduled. BMT MOBILIZATION + COLLECTION - AUTOLOGOUS HPC APHERESIS (FILGRASTIM + PLERIXAFOR)* Plan Start Date:12/24/2019 Plan Provider:Saira Tejada MD Linked Problems Multiple myeloma, remission status unspecified (HCC) Treatment Medications No medications scheduled. Past Treatment and Therapy Plans No past plan information found. Lifetime Dose Tracking * Chemical Lifetime Dose Automatic Entry Manual Entr y Dose Length Product 1,138 mGy-cm 1,138 mGy-cm 0 mGy-cm Resolved Problems Problem Noted Date Diagnosed Date Resolved Date Intractable pain 06/30/2019 01/13/2020 Pyelonephritis 12/29/2015 01/13/2020 Urinary tract infection 12/29/201509/01
--- OUTSIDE RECORDS SUMMARY | 2025-07-13 14:59 | XMS_ITS | Clinical Summary ---
Author Organization [facility] Address [address] [place] [address] Care Team Providers Care Presentation Designer Name Role Phone Davi Sesay DO Unavailable Saira Tejada MD Unavailable [phone] Juliana, Nohemy Singletary APRN-CERTIFIED OPTICIAN Unavailable [phone] Lina Figueroa LCSW Unavailable Unavailab Luis Rodarte MD Unavailable [phone] Cecy HenriquezD Unavailable Unavaila ble Irene Barton RN Unavailable Unavaila Massiel Adames RN Unavailable Unavailable Nohemy Andrews GAS OPERATIONS ANALYST-CERTIFIED OPTICIAN Unavailable [phone] Dianna Barbosa APRN-CERTIFIED OPTICIAN Unavailable [phone] Farnaz Arnett RN Unavailable Unavailable Yaneth Gage [facility]PERATIONS [facility] Primary Care Provide r Source Comments [facility],non-owned Affiliates and Associated Physician Practices is amultiple site organization consisting of ambulatory clinics and hospital sitesin [place], [place], [place] and [place]. This disclosure is being madepursuant to the Care Everywhere program and may not contain all information available regarding this patient. Last updated 18.[facility] Allergies Active Allergy Reactions Criticality Noted Date Comments Meloxicam Nausea and/or Vomiting Medium 01/11/2022 Tramadol Itching Medium 01/11/2022 Medications * Be aware that medications may not be up to date on this document. Alwaysverify current medications with the patient. atorvastatin (LIPITOR) 20 MG tablet Take 1 (one) tablet by mouth once daily 9 Active fluticasone propionate (FLONASE) 50 MCG/ACT nasal spray [place] 2 (two) sprays into the nose once daily 9 Active losartan (COZAAR) 100 MG tablet Take 1 (one) tablet by mouth once daily 9 Active albuterol HFA (PROVENTIL;GIOVANY JUAN;PROAIR) 108 (90 Base) MCG/ACT inhaler Inhale 2 (two) puffs by mouth once daily 9 Active omeprazole (PRILOSEC) 40 MG capsule Take 1 capsule by mouth daily before breakfast 30 capsule 5 9 Active furosemide (LASIX) 40 MG tablet Take 1 tablet by mouth once daily 30 tablet 11 0 Active morphine CR 12hr (MS CONTIN) 30 MG tablet Take 1 tablet by mouth every 12 hours 60 tablet 0 Active clindamycin (CLEOCIN) 1 % lotionIndication s:Hidradenitis suppurativa,Hidr adenitis suppurativa of left axilla,Hidradeni tis suppurativa of right axilla Apply to affected area in armpits, groin on twice daily. 30 day supply. 60 mL 4 1 Active metFORMIN (GLUCOPHAGE) 500 MG tablet 1 (one) tablet 2 times daily with morning and evening meal 1 Active clindamycin (CLEOCIN) 300 MG capsule Take 1 (one) capsule by mouth 1 Active chlorhexidine gluconate (HIBICLENS) 4 % solution Apply to affected area 2 times daily 946 mL 2 1 Active aspirin (Aspirin) 81 MG chew tablet Take 1 (one) tablet by mouth once daily 100 tablet 4 2 Active nitroGLYCERIN (Nitrostat) 0.4 MG tablet Dissolve 1 (one) tablet under the tongue every 5 minutes as needed for Angina 100 tablet 2 Active vitamin D, ergocalciferol, (Drisdol) 1.25 MG (08028 UT) capsule Take 1 (one) capsule by mouth every 7 days 3 Active ferrous sulfate 325 (65 FE) MG tablet Take 1 (one) tablet by mouth once daily Active gabapentin (Neurontin) 300 MG capsule Take 2 (two) capsules by mouth 3 times daily 2 Active hydrALAZINE (Apresoline) 25 MG tablet Take 1 (one) tablet by mouth once daily Active lisinopril-hydro CHLOROthiazide (Prinzide; Zestoretic) 20-25 MG tablet Take 1 (one) tablet by mouth once daily Active metoprolol tartrate IR (Lopressor) 25 MG tablet Take 1 (one) tablet by mouth 2 times daily 3 Active omeprazole (PriLOSEC) 20 MG capsule Take 1 (one) capsule by mouth once daily 2 Active ondansetron (Zofran) 4 MG tablet Take 1 (one) tablet by mouth once daily as needed 2 Active polyethylene glycol 3350 (Miralax) 17 GM/SCOOP powder Take 17 (seventeen) g by mouth as directed 2 Active morphine IR (MSIR) 15 MG tablet Take 1 (one) tablet by mouth every 6 hours as needed 3 Active Active Problems Problem Noted Date Diagnosed Date Hidradenitis 02/05/2021 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 Nausea and vomiting 01/02/2020 CHF (congestive heart failure) 10/29/2019 Type 2 diabetes mellitus 09/20/2019 Hypertension 09/20/2019 Multiple myeloma 09/03/2019 Lytic lesion of bone on x-ray 07/12/2019 Resolved Problems Problem Noted Date Diagnosed Date Resolved Date Intractable pain 06/30/2019 01/13/2020 Pyelonephritis 12/29/2015 01/13/2020 Urinary tract infection 12/29/201509/01 Immunizations Immunization Administration Dates Next Due Investorio.de primary monoval ent 12+ yr 0.3mL Purple cap 09/26/2021,07/17/2021,06/29/2021 DTAP 5 PERTUSSIS ANTIGENS 12/12/2020,09/08/2020, 07/07/2020 HEP A/HEP B 02/13/2021,09/08/2020,07/07/2020 HEP B VACCINE, ADULT 3 DOSE 03/01/2022 HIB VACCINE 12/12/2020,09/08/2020,07/07/2020 HIB-PRP-T 4 DOSE 12/12/2020,09/08/2020, 0 INFLUENZA VACCINE, HIGH-DOSE , QUADR. (FLUZONE HIGH-DOSE QUADRIVALENT; 65Y+), 0.7 ML (HD-IIV4) 09/08/2020 INFLUENZA VACCINE, QUADR. (F LUZONE; FLULAVAL; FLUARIX; AFLURIA QUADRIVALENT; 6MO+), 0.5 ML (IIV4) 09/20/2019 MENINGOCOCCAL ACWY MENVEO 09/08/2020,07/07/2020 MMR 03/01/2022 PNEUMOCOCCAL PCV VACCINE 02/13/2021 PNEUMOCOCCAL PPSV23 02/13/2021 POLIO IPV 12/12/2020,09/08/2020,07/07/2020 Pneumococcal Pcv13 Conj 12/12/2020,09/08/2020, Zoster Hzv Vacc Recombinant Inj Im 12/12/2020, Family History Medical History Relation Name Comments None Known Brother None Known Father None Known Maternal Aunt None Known Maternal Grandfather None Known Maternal Grandmother None Known Maternal Uncle None Known Mother None Known Other None Known Paternal Aunt None Known Paternal Grandfather None Known Paternal Grandmother None Known Paternal Uncle None Known Sister Asthma Neg Hx CVA Neg Hx Cancer - Breast Neg Hx Cancer - Other Neg Hx Cancer - Skin, Melanoma Neg Hx Cancer - Skin, Non Melanoma Neg Hx Eczema Neg Hx Hemophilia Neg Hx Psoriasis Neg Hx Relation Name Status Comments Brother Father Maternal Aunt Maternal Grandfather Maternal Grandmother Maternal Uncle Mother Other Paternal Aunt Paternal Grandfather Paternal Grandmother Paternal Uncle Sister Social History Tobacco Use Types Packs/Day Years Used Date Smoking Tobacco: Every Day Cigarettes 1 43 Started: 07/01/1982 Smokeless Tobacco: Never Tobacco Cessation:Ready to Q uit: Not Asked; Counseling Given: Not Answered Alcohol Use Standard Drinks/Week Comments Not Currently 0 (1 standard drink = 0.6 oz pur e alcohol) AUDIT-C Answer Date Recorded Q1: How often do you have a drink containing alcohol? Never 09/17/2024 Q2: How many drinks containi ng alcohol do you have on a typical day when you are drinking? Patient does not drink Q3: How often do you have si x or more drinks on one occasion? Never 09/17/2024 Comments No Sex and Gender Information Value Date Recorded Sex Assigned at Not on file Legal Sex Female 5:58 PM TAPPET ADJUSTER Gender Identity Not on file Sexual Orientation Not on file Last Filed Vital Signs Vital Sign Reading Time Taken Comments Blood Pressure 162/88 09/17/2024 3:15 PM CDT Pulse 88 09/17/2024 3:15 PM CDT Temperature 36.7 C (98 F) 09/17/2024 2:50 PM CDT Respiratory Rate 18 09/17/2024 3:15 PM CDT Oxygen Saturation 96% 09/17/2024 3:15 PM CDT Inhaled Oxygen Concentration 21% 01/07/2020 1 2:07 AM TAPPET ADJUSTER Weight 134.3 kg (296 lb) 09/14/2024 2:21 PM CDT Height 157.5 cm (5' 2) 09/14/2024 2:21 PM CDT Body Mass Index 54.14 09/14/2024 2:21 PM CDT Plan of Treatment Health Maintenance Due Date Last Done Comments COLOGUARD (AGES 45-75) - COLON CA SCREENING 1967 COLON MONITORING 1967 COLONOSCOPY - COLON CA SCREENING 1967 CT COLONOGRAPHY - COLON CA SCREENING 1967 Colorectal Cancer Screening 1967 FIT - COLON CA SCREENING 1967 FLEX SIG - COLON CA SCREENING 1967 MAMMOGRAM 1967 Opioid Medication Agreement - Annual 1967 HEPATITIS C SCREENING 06/09/1985 PAP SMEAR 1988 LUNG CANCER SCREENING 2017 DIABETES-FOOT EXAM WITH MONOFILAMENT 09/20/2019 DIABETES-HGB A1C 07/13/2020 01/13/2020 DIABETES RETINOPATHY SCREENING 09/27/2022 09/27/2020 COVID-19 VACCINE ( season) 2024 09/26/2021, 07/17/2021, 06/29/2021 DEPRESSION SCREENING 12/01/2024 DIABETES - URINE PROTEIN SCREENING 12/01/2024 08/15/2021 INFLUENZA VACCINE (#1) 2025 3, 09/08/2020, 09/20/2019 DIABETES-SERUM CREATININE 11/08/20252023, 09/17/2024, 08/31/2024, Additional history exists PNEUMOCOCCAL VACCINE 50+ (3 of 3 - PCV20 or PCV21) 02/13/2026 02/13/2021, 02/13/2021, 12/12/2020, Additional history exists DTAP/TDAP/TD VACCINES (4 - Tdap) 12/12/2030 12/12/2020, 09/08/2020, 07/07/2020 HIV SCREENING Completed 09/20/2019 MENINGOCOCCAL GROUPS A/C/Y/W VACCINE Aged Out 09/08/2020, 07/07/2020 No longer eligibl e based on patient's age to complete this topic HIB VACCINE Aged Out 12/12/2020, 12/01, 09/08/2020, Additional history exists No longer eligible based on patient's age to complete this topic ZOSTER VACCINE Completed 12/12/2020, 05/17/2020 HEPATITIS B VACCINE Completed 03/01/2022, 02/13/2021, 09/08/2020, Additional history exists HPV VACCINE Aged Out No longer eligi ble based on patient's age to complete this topic MENINGOCOCCAL (Group B) VACCINE SHARED DECISION-MAKING Aged Out No longer eligible based on patient's age to complete this topic Medical Devices Implanted Type Area Economic Research Analyst Device Identifier Shelf Expiration Date Model / Serial / Lot Tray Cath 12fr 19cm Hkmn Trifusion 3 Lum Implanted:Qty: 1 on 12/27/2019 by Ti Woodward MD at [facility] Right: Chest [employer] 06/30/2021 [id number] / / [id number] Procedures Procedure Name Priority Date/Time Associated Diagnosis Comments CREATININE - POCT INTERFACED Routine 09/17/2024 12:17 PM CDT HEMOGLOBIN A1C Routine 01/13/2020 12:34 AM TAPPET ADJUSTER HIV-1 HIV-2 ANTIGEN/ANTIBODY Routine 09/20/2019 4:35 PM CDT Multiple myeloma, remission status unspecified from Last 3 Months or Most Recently Relevant to Health Maintenance Results * (ABNORMAL) CREATININE - POCT INTERFACED (09/17/2024 12:17 PM CDT) Creatinine POCT 0.87 0.30 - 1.30 mg/dL 09/17/2024 12:20 PM CDT [facility] eGFR 78(L) >=90 mL/min/1.7 3 m2 09/17/2024 12:20 PM CDT [facility] Blood BLOOD SPECIMEN / Unknown 09/17/2024 12:17 PM CDT 09/17/2024 12:20 PM CDT us Davi Sesay DO LAB - POINT OF CARE ORDERABLES F inal Result [facility] [address] [place] [address], [facility] [phone] * (ABNORMAL) HEMOGLOBIN A1C (01/13/2020 12:34 AM TAPPET ADJUSTER) Hemoglobin A1c 6.9(H) 4.4 - 6.3 % 01/13/2020 8:52 AM TAPPET ADJUSTER [facility] Estimated Average Glucose 151 mg/dL 01/13/2020 8:52 AM [facility] Comment: HbA1c Interpretation: Treatment target values recommended by ADA and other clinical organizations should be used to evaluate metabolic control in patients. Treatment Target Values: Normal : < 5.7% Pre-diabetes: 5.7-6.4% Diabetes: Equal to or greater than 6.5% Reference: [place] Diabetes Association Standards of Care in Diabetes -2014 In patients 70 years and older consider HbA1c target range of 7.0-7.5% Reference: Diabetes Mellitus in Older People: Position Statement on behalf of the International Association of Gerontology and Geriatrics (IAGG), the Diabetes Working Constitution Party for Older People (EDWPOP), and the International Task Force of Experts in Diabetes. Stew Figueredo, et al. J [place] Medical Directors Association. 2012 Test results diagnostic of diabetes should be repeated for confirmation. The Sebia Capillary 2 assay for the measurement of HbA1c is a National Glycohemoglobin Standardization Program (NGSP)certified method. Blood BLOOD SPECIMEN / Unknown Venipuncture / Unknown 01/13/2020 12:34 AM TAPPET ADJUSTER 01/13/2020 1:33 AM TAPPET ADJUSTER us Claudio Snyder GAS OPERATIONS ANALYST-CERTIFIED OPTICIAN LAB - CHEMISTRY ORDERABL ES Final Result [facility] [address] [place] [address], [facility] [phone] * HIV-1 HIV-2 ANTIGEN/ANTIBODY (09/20/2019 4:35 PM CDT) HIV Antigen/Antibod y 1 & 2 Non-reacti ve Non-react danny 09/20/2019 6:02 PM CDT [facility] Comment: Neither HIV-1 p24 Antigen nor HIV-1/HIV-2 Antibodies are detected. Blood BLOOD SPECIMEN / Unknown Venipuncture / Unknown 09/20/2019 4:35 PM CDT 09/20/2019 5:00 PM CDT us Nohemy Andrews APRN-CERTIFIED OPTICIAN LAB - HEMATOLOGY [place] [address], [facility] [phone] from Last 3 Months or Most Recently Relevant to Health Maintenance Insurance [facility] Advance Directives * Full Code (Latest Code Status on File) Date Activated Date Inactivated Comments 01/03/2020 12:38 AM 01/18/2020 7:18 PM Care Teams Presentation Designer Relationship Specialty Start Date End Date Yaneth Gage APRN-CERTIFIED OPTICIAN [address] [place] [address] PCP - General 10/01/22 Davi Sesay DO Hematology and Oncology 09/03/19 Saira Tejada MD [address] [place] [address] Hematology and Oncology 09/03/19 Nohemy Andrews APRN-[facility] [address] [place] [address] Family Medicine 09/03/19 Lina Figueroa, CRIMINAL PROFILER Gut Snatcher 09/03/19 Luis Delaney MD Hematology and Oncology 09/03/19 Cecy Henriquez, PharmD 09/03/19 Irene Barton, RN Registered Nurse 09/20/19 Massiel Troy, RN Registered Nurse 02/27/22 Nohemy Andrews, DAMARIS-CERTIFIED OPTICIAN Family Medicine 02/27/22 Dianna Barbosa APRN-CERTIFIED OPTICIAN [address] [facility] [place] [address] Advance Practice Nurse Family Medicine 02/27/22 Farnaz Arnett, RN 02/27/22
--- OUTSIDE RECORDS SUMMARY | 2025-07-13 14:59 | XMS_ITS | Encounter Summary ---
Author Organization [facility] Address [address] [place] [address] Phone Care Team Providers Care Counseling Psychologist Name Role Phone Yaneth Gage APRN, CNP Primary Care Provid er Davi Sesay DO Unavailable [phone] Saira Tejada MD Unavailable [phone] Encounter Details Date Type Department Care Team (Late st Contact Info) Description 05/21/2024 Telephone [facility] [place] [address] [place] [address] Davi Sesay, DO [address] [place] [address] Social History Tobacco Use Types [...] Telephone Encounter - Olga Lidia Ernandez - 05/21/2024 1:27 PM CDT Pt missed appt wasn't able to leave vm to have pt call office to rs will send letter out. documented in this encounter Plan of Treatment Upcoming Encounters Date Type Department Care Team (Late st Contact Info) Description 07/26/2025 10:35 AM CDT Lab [facility] [address] [phone] Lab, [facility] 07/26/2025 10:45 AM CDT Office Visit [facility] [address] [phone] Davi Sesay DO [address] [place] [phone] documented as of this encounter Visit Diagnoses Not on filedocumented in this encounter Additional Health Concerns Assessment Noted Time PHQ-9 Depression Total Score: 18 01/11/ 022 8:49 AM 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
--- OUTSIDE RECORDS SUMMARY | 2025-07-13 14:59 | XMS_ITS | Encounter Summary ---
Author Organization [facility] Address [address] [place] [address] Phone Care Team Providers Care Reel Man Name Role Phone Yaneth Gage APRN, CNP Primary Care Provid er Davi Sesay DO Unavailable [phone] Saira Tejada MD Unavailable [phone] Encounter Details Date Type Department Care Team (Late st Contact Info) Description 12/21/2021 Telephone [facility] [place] [address] [place] [address] Davi Sesay, DO [address] [place] [address] Social History Tobacco Use Types [...] Recorded Total Score - Questions 1-9 1 10/03 Sexually Active Control Partners Comments Yes Male Comments No Sex and Gender Information Value Date Recorded Sex Assigned at Not on file Legal Sex Female 9:35 AM CDT Gender Identity Not on file Sexual Orientation Not on file documented as of this encounter Miscellaneous Notes * Telephone Encounter - Keara Winters - 12/21/2021 3:33 PM CST Called patient to reschedule ns appt, vm left, letter sent out. L GRINDER documented in this encounter Plan of Treatment Upcoming Encounters Date Type Department Care Team (Late st Contact Info) Description 07/26/2025 10:35 AM CDT Lab [facility] [address] [phone] Lab, Cc [facility] 07/26/2025 10:45 AM CDT Office [facility] [address] [phone] Davi Sesay DO [address] [place] [phone] documented as of this encounter Visit Diagnoses Not on filedocumented in this encounter Additional Health Concerns Assessment Noted Time PHQ-9 Depression Total Score: 1 09/18/20 21 11:20 AM CDT documented as of this encounter Care Teams Reel Man Relationship Specialty Start Date End Date Yaneth Gage, DAMARIS, STATISTICAL PROGRAMMER ANALYST [address] [place] [address] PCP - General Certified Nurse Practitioner 06/30/19 Davi Sesay DO [address] [place] [address] Consulting Physician Oncology 07/05/19 Saira Tejada MD [address] [place] [address] Consulting Physician 09/06/19 documented as of this encounter
--- OUTSIDE RECORDS SUMMARY | 2025-07-13 14:59 | XMS_ITS | Encounter Summary ---
Author Organization [facility] Address [address] [place] [address] Phone Care Team Providers Care Direct Care Worker Name Role Phone Yaneth Gage APRN, CNP Primary Care Provid er Davi Sesay DO Unavailable [phone] Saira Tejada MD Unavailable [phone] Encounter Details Date Type Department Care Team (Late st Contact Info) Description 04/03/2022 Telephone [facility] [place] [address] [place] [address] Thomas Rausch MD [address] [place] [phone] Social History Tobacco Use Types Packs/Day [...] Recorded Total Score - Questions 1-9 0 04/0 12/2021 Sexually Active Control Partners Comments Yes Male Comments No Sex and Gender Information Value Date Recorded Sex Assigned at Not on file Legal Sex Female 9:35 AM CDT Gender Identity Not on file Sexual Orientation Not on file documented as of this encounter Miscellaneous Notes * Telephone Encounter - Keara Winters - 04/03/2022 11:00 AM CDT Called to reschedule pt NS appt. New appt is on 04/08. documented in this encounter Plan of Treatment Upcoming Encounters Date Type Department Care Team (Late st Contact Info) Description 07/26/2025 10:35 AM CDT Lab [facility] [address] [phone] Lab, Cc [facility] 07/26/2025 10:45 AM CDT Office [facility] [address] [phone] Davi Sesay DO [address] [place] [place] [phone] documented as of this encounter Visit Diagnoses Not on filedocumented in this encounter Additional Health Concerns Assessment Noted Time PHQ-9 Depression Total Score: 18 022 8:49 AM OPTICAL COATING TECHNICIAN documented as of this encounter Care Teams Direct Care Worker Relationship Specialty Start Date End Date Yaneth Gage APRN, PIERCE [address] [place] [address] PCP - General Certified Nurse Practitioner 06/30/19 Davi Sesay DO [address] [place] [address] Consulting Physician Oncology 07/05/19 Saira Tejada MD [address] [place] [address] Consulting Physician 09/06/19 documented as of this encounter
--- OUTSIDE RECORDS SUMMARY | 2025-07-13 14:59 | XMS_ITS | Encounter Summary ---
Author Organization [facility] Address [address] [place] [address] Phone Care Team Providers Care Endoscopy Technican Name Role Phone Yaneth Gage APRN, CNP Primary Care Provid er Davi Sesay DO Unavailable [phone] Saira Tejada MD Unavailable [phone] Reason for Visit * Reason Comments Medication Refill Encounter Details Date Type Department Care Team (Late st Contact Info) Description 06/11/2021 Refill [facility] [place] [address] [place] [address] Davi Sesay, DO [address] [place] [address] Medication Refill Social History Tobacco [...] Recorded Total Score - Questions 1-9 1 05/02 Sexually Active Control Partners Comments Yes Male [...] have Coronavirus / COVID-19? No / Unsure 05/29/2021 10:44 AM CDT documented as of this encounter Miscellaneous Notes * Telephone Encounter - Joanna Silverman LPN - 06/11/2021 12:53 PM CDT Refill if appropriate. documented in this encounter Plan of Treatment Upcoming Encounters Date Type Department Care Team (Late st Contact Info) Description 07/26/2025 10:35 AM CDT Lab [facility] [address] [address] Lab, [facility] 07/26/2025 10:45 AM CDT Office Visit [facility] [address] [phone] Davi Sesay DO [address] [place] [phone] documented as of this encounter Visit Diagnoses Not on filedocumented in this encounter Additional Health Concerns Assessment Noted Time PHQ-9 Depression Total Score: 1 05/29/20 21 11:00 AM CDT documented as of this encounter Care Teams Endoscopy Technican Relationship Specialty Start Date End Date Yaneth Gage APRN, PIERCE [address] [place] [address] PCP - General Certified Nurse Practitioner 06/30/19 Davi Sesay DO [address] [place] [address] Consulting Physician Oncology 07/05/19 Saira Tejada MD [address] [place] [address] Consulting Physician 09/06/19 documented as of this encounter
--- OUTSIDE RECORDS SUMMARY | 2025-07-13 14:59 | XMS_ITS | Encounter Summary ---
Author Organization [facility] Address [address] [place] [address] Phone Care Team Providers Care Sports Official Name Role Phone Yaneth Gage APRN, CNP Primary Care Provid er Davi Sesay DO Unavailable [phone] Saira Tejada MD Unavailable [phone] Encounter Details Date Type Department Care Team (Late st Contact Info) Description 06/11/2022 Telephone [facility] [place] [address] [place] [address] Davi Sesay, DO [address] [place] [address] Social History Tobacco Use Types [...] Recorded Total Score - Questions 1-9 0 05/0 08/2022 Sexually Active Control Partners Comments Yes Male Comments No Sex and Gender Information Value Date Recorded Sex Assigned at Not on file Legal Sex Female 9:35 AM CDT Gender Identity Not on file Sexual Orientation Not on file documented as of this encounter Miscellaneous Notes * Telephone Encounter - Rachell Sandoval - 06/11/2022 9:19 AM CDT PT'S CAR BROKE DOWN. RESCHEDULE PT APPT FOR 06/24 @10 documented in this encounter Plan of Treatment Upcoming Encounters Date Type Department Care Team (Late st Contact Info) Description 07/26/2025 10:35 AM CDT Lab [facility] [address] [phone] Lab, [facility] 07/26/2025 10:45 AM CDT Office [facility] [address] [phone] Davi Sesay DO [address] [place] [phone] documented as of this encounter Visit Diagnoses Not on filedocumented in this encounter Additional Health Concerns Assessment Noted Time PHQ-9 Depression Total Score: 18 022 8:49 AM 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
--- OUTSIDE RECORDS SUMMARY | 2025-07-13 14:59 | XMS_ITS | Encounter Summary ---
Author Organization [facility] Address [address] [place] [address] Phone Care Team Providers Care Fruit Dryer Name Role Phone Yaneth Gage APRN, CNP Primary Care Provid er Davi Sesay DO Unavailable [phone] Saira Tejada MD Unavailable [phone] Encounter Details Date Type Department Care Team (Late st Contact Info) Description 05/10/2022 Telephone [facility] [address] [place] [address] Davi Sesay, DO [address] [place] [address] Social History Tobacco Use Types [...] encounter Miscellaneous Notes * Telephone Encounter - Jaime Rachell - 05/10/2022 11:54 AM CDT LVM FOR PT TO CALL CLINIC TO RESCHEDULE OFFICE VISIT documented in this encounter Plan of Treatment Upcoming Encounters Date Type Department Care Team (Late st Contact Info) Description 07/26/2025 10:35 AM CDT Lab [facility] [address] [address] Lab, [facility] [place] 07/26/2025 10:45 AM CDT Office Visit [facility] [address] [phone] Davi Sesay DO [address] [place] [phone] documented as of this encounter Visit Diagnoses Not on filedocumented in this encounter Additional Health Concerns Assessment Noted Time PHQ-9 Depression Total Score: 18 022 8:49 AM BURLAPPER documented as of this encounter Care Teams Fruit Dryer Relationship Specialty Start Date End Date Yaneth Gage APRN, PIERCE [address] [place] [address] PCP - General Certified Nurse Practitioner 06/30/19 Davi Sesay DO [address] [place] [address] Consulting Physician Oncology 07/05/19 Saira Tejada MD [address] [place] [address] Consulting Physician 09/06/19 documented as of this encounter
--- OUTSIDE RECORDS SUMMARY | 2025-07-13 14:59 | XMS_ITS | Encounter Summary ---
Author Organization [facility] Address [address] [place] [address] Care Team Providers Care Hotel Manager Name Role Phone Davi Sesay DO Unavailable Saira Tejada MD Unavailable [phone] Juliana, Nohemy Singletary PREMIUM CANCELLATION CLERK-[employer] SERVICE TECHNICIAN Unavailable [phone] Lina Figueroa LCSW Unavailable Unavailab Luis Rodarte MD Unavailable [phone] Cecy HenriquezD Unavailable Unavaila ble Irene Barton RN Unavailable Unavaila Massiel Adames RN Unavailable Unavailable JulianaNohemy roman PREMIUM CANCELLATION CLERK-BMW SERVICE TECHNICIAN Unavailable [phone] Dianna Barbosa PREMIUM CANCELLATION CLERK-BMW SERVICE TECHNICIAN Unavailable [phone] Farnaz Arnett RN Unavailable Unavailable Yaneth Gage [facility] Primary Care Provide r Reason for Referral * Radiology Services (Routine) - Closed Specialty Diagnoses / Procedures Referred By Contac t Referred To Contact MRI Diagnoses Multiple myeloma, remission status unspecified (HCC) Procedures MRI BONE MARROW BLOOD SUPPLY Davi Sesay DO [address] [place] [address] Phone: tel: fax: Referral ID Status Reason Start Date Expiration Date Visits Re quested Visits Authorized [id number] Closed 09/09/2024 09/09/2025 1 1 Reason for Visit * Radiology Services (Routine) - Closed Specialty Diagnoses / Procedures Referred By Emily t Referred To Contact MRI Diagnoses Multiple myeloma, remission status unspecified (HCC) Procedures MRI BONE MARROW BLOOD SUPPLY Davi Sesay DO [address] [place] [address] Phone: tel: fax: Referral ID Status Reason Start Date Expiration Date Visits Re quested Visits Authorized [id number] Closed 09/09/2024 09/09/2025 1 1 Encounter Details Date Type Department Care Team (Latest Contact Info) Description 09/17/2024 10:14 AM CDT Hospital Encounter [facility] [address] [place] [address] Davi Sesay DO [address] [place] [address] Thor Lamb MD [address] [facility] [address] [facility] [place] [address] Interven Radiology Social History Tobacco Use Types Packs/Day Years [...] on file 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 Gender Identity Not on file Sexual Orientation Not on file documented as of this encounter Last Filed Vital Signs Vital Sign Reading Time Taken Comments Blood Pressure 162/88 09/17/2024 3:15 PM CDT Pulse 88 09/17/2024 3:15 PM CDT Temperature 36.7 C (98 F) 09/17/2024 2:50 PM CDT Respiratory Rate 18 09/17/2024 3:15 PM CDT Oxygen Saturation 96% 09/17/2024 3:15 PM CDT Inhaled Oxygen Concentration - - Weight 134.3 kg (296 lb) 09/14/2024 2:21 PM CDT Height 157.5 cm (5' 2) 09/14/2024 2:21 PM CDT Body Mass Index 54.14 09/14/2024 2:21 PM CDT documented in this encounter Functional Status * Question Answer Date of Assessment Author Q1: How often do you have a drink containing alcohol? Never 09/17/2024 12:13 PM LNYDSAYT Sang Bird RN Q2: How many drinks containing alcohol do you have on a typical day when you are drinking? Patient does not drink 09/17/2024 12:13 PM LYNDSAYT Sang Bird RN Q3: How often do you have six or more drinks on one occasion? Never 09/17/2024 12:13 PM CDT Sang Bird RN * Audit-C Score Answer Date of Assessment Author 0 09/17/2024 12:13 PM Sang Keller RN * Is person deaf or have serious hearing difficulty? Answer Date of Assessment Author No 09/17/2024 2:46 PM LYNDSAYT Sang Bird RN * Is person blind or have serious difficulty seeing? Answer Date of Assessment Author No 09/17/2024 2:46 PM LYNDSAYT Sang Bird RN * Does person have serious difficulty walking/climbing stairs? Answer Date of Assessment Author No 09/17/2024 2:46 PM LYNDSAYT Sang Bird RN * Does person have difficulty dressing/bathing? Answer Date of Assessment Author No 09/17/2024 2:46 PM CDT Sang Bird RN * Does person have difficulty doing errands alone? Answer Date of Assessment Author No 09/17/2024 2:46 PM CDT Sang Bird RN documented as of this encounter Mental Status * Does person have difficulty concentrating/remembering/making decisions? Answer Entry Date Author No 09/17/2024 2:46 PM CDT Sang Bird RN documented in this encounter Plan of Treatment Scheduled Orders Name Type Priority Associated Diagnoses Order Schedule OXYGEN WITHOUT TITRATION (ADULT) Respiratory Care Routine CONTINUOUS un til discontinued starting 09/17/2024 documented as of this encounter Procedures Procedure Name Priority Date/Time Associated Diagnosis Comments MRI BONE MARROW BLOOD SUPPLY Routine 09/17/2024 2:31 PM CDT Multiple myeloma, remission status unspecified CREATININE - POCT INTERFACED Routine 09/17/2024 12:17 PM CDT GLUCOSE - POINT OF CARE Routine 09/17/2024 11:22 AM CDT documented in this encounter Results * MRI BONE MARROW BLOOD SUPPLY (09/17/2024 2:31 PM CDT) Anatomical Region Laterality Modality Magnetic Resonan ce, X-Ray Angiography 09/17/2024 3:12 PM CDT Impressions 09/17/2024 4:40 PM CDT IMPRESSION: Several bone lesions in the lower thoracic and lumbar spine appear increased in size and conspicuity suggesting progression of multiple myeloma. Direct comparison to the 01/17/2023 MRI is somewhat limited because that study was a noncontrast study and the lesions are best depicted and measured on the postcontrast imaging, however the lesions also appear increased compared to the MRI before that dated 11/20/2021. > Interpreting Provider: Ang Gutierrez MD on 09/17/2024 4:40 PM Narrative 09/17/2024 4:40 PM CDT PROCEDURE: MRI BONE MARROW BLOOD SUPPLY DATE/TIME OF EXAM: 09/17/2024 2:32 PM CLINICAL INFORMATION: None relevant/not provided if blank. Indication: C90.00: Multiple myeloma, remission status unspecified (HCC) Additional History: COMPARISON: 01/17/2023 MRI Bone Marrow blood supply. Also 11/20/2021. Outside PET/CT dated 03/20/2023. TECHNIQUE: Images of the spine were obtained in the sagittal plane, images of the head were obtained in the axial plane, images of the pelvis were obtained in the axial plane, images of the scapulas were obtained in oblique coronal planes, and images of the sternum were obtained in the coronal plane using T1, STIR, and postcontrast Ayon sequences. CONTRAST: 10 mL Gadavist intravenous FINDINGS: General bone marrow: The bone marrow signal within the visualized axial and appendicular skeleton is hyperintense relative to skeletal muscle on T1-weighted images and within normal limits. Focal bone lesions: 5 mm lesion in the inferior aspect of the right scapula (series 17 and 31 image 24), previously 5 mm. In keeping with previous spinal level designation, L5 is sacralized. There are areas of bone marrow signal abnormality in the anterior-inferior endplate of C6 and anterior superior endplate of C7 which are probably endplate degenerative change (series 12 image 9). 5 mm lesion in the T9 vertebral body (series 12 and 26 image 7), previously 4 mm. There is a poorly defined area of bone marrow signal abnormality and mild enhancement measuring approximately 1.5 cm in the anterior-inferior aspect of the T11 vertebral body, not definitely changed, which could represent marrow endplate degenerative signal or a myeloma lesion (series 30 image 7). There is a 0.8 cm enhancing lesion in the anterior-inferior aspect of the T12 vertebral body (series 30 image 5), more conspicuous on the postcontrast images and therefore difficult to compare precisely to the previous study although based on the STIR images it does appear increased (series 13 image 5). There is a 1.3 cm enhancing lesion in the anterior-superior aspect of the L1 vertebral body (series 30 image 12), which based on the STIR images appears increased (series 13 image 12). There is a 1.2 cm enhancing lesion in the anterior-superior aspect of the L3 vertebral body (series 30 image 11) which based on the STIR images appears increased (series 13 image 11); there is artifact in this region on the postcontrast images. Paramedullary or extramedullary sites: None. Vertebral fractures: None. Response Assessment Category: Likely to be progressing Incidental: Prominent lacrimal glands, unchanged. Bilateral os acromiale. A degenerative cyst adjacent to the superior aspect of the right acromioclavicular joint is redemonstrated. Mild to moderate spinal degenerative changes are present. Procedure Note Ang Gutierrez MD - 09/17/2024 PROCEDURE: MRI BONE MARROW BLOOD SUPPLY DATE/TIME OF EXAM: 09/17/2024 2:32 PM CLINICAL INFORMATION: None relevant/not provided if blank. Indication: C90.00: Multiple myeloma, remission status unspecified (HCC) Additional History: COMPARISON: 01/17/2023 MRI Bone Marrow blood supply. Also 11/20/2021. Outside PET/CT dated 03/20/2023. TECHNIQUE: Images of the spine were obtained in the sagittal plane, images of thehead were obtained in the axial plane, images of the pelvis were obtained inthe axial plane, images of the scapulas were obtained in oblique coronal planes, and images of the sternum were obtained in the coronal planeusing T1, STIR, and postcontrast Ayon sequences. CONTRAST: 10 mL Gadavist intravenous FINDINGS: General bone marrow: The bone marrow signal within the visualized axial and appendicular skeleton is hyperintense relative to skeletal muscle on T1-weightedimages and within normal limits. Focal bone lesions: 5 mm lesion in the inferior aspect of the right scapula (series 17 and31 image 24), previously 5 mm. In keeping with previous spinal level designation, L5 is sacralized. There are areas of bone marrow signal abnormality in theanterior-inferior endplate of C6 and anterior superior endplate of C7 which are probably endplate degenerative change (series 12 image 9). 5 mm lesion in the T9 vertebral body (series 12 and 26 image 7),previously 4 mm. There is a poorly defined area of bone marrow signal abnormality andmild enhancement measuring approximately 1.5 cm in the anterior-inferioraspect of the T11 vertebral body, not definitely changed, which could represent marrow endplate degenerative signal or a myeloma lesion (series 30 image 7). There is a 0.8 cm enhancing lesion in the anterior-inferior aspect ofthe T12 vertebral body (series 30 image 5), more conspicuous on the postcontrast images and therefore difficult to compare precisely to the previous study although based on the STIR images it does appearincreased (series 13 image 5). There is a 1.3 cm enhancing lesion in the anterior-superior aspect ofthe L1 vertebral body (series 30 image 12), which based on the STIR images appears increased (series 13 image 12). There is a 1.2 cm enhancing lesion in the anterior-superior aspect ofthe L3 vertebral body (series 30 image 11) which based on the STIR images appears increased (series 13 image 11); there is artifact in this regionon the postcontrast images. Paramedullary or extramedullary sites: None. Vertebral fractures: None. Response Assessment Category: Likely to be progressing Incidental: Prominent lacrimal glands, unchanged. Bilateral os acromiale. A degenerative cyst adjacent to the superior aspect of the right acromioclavicular joint is redemonstrated. Mild to moderate spinal degenerative changes are present. IMPRESSION: Several bone lesions in the lower thoracic and lumbar spine appear increased in size and conspicuity suggesting progression of multiple myeloma. Direct comparison to the 01/17/2023 MRI is somewhat limitedbecause that study was a noncontrast study and the lesions are best depicted and measured on the postcontrast imaging, however the lesions also appear increased compared to the MRI before that dated 11/20/2021. > Interpreting Provider: Ang Gutierrez MD on 09/17/2024 4:40 PM us Davi Sesay DO MR ORDERABLES Final Result * (ABNORMAL) CREATININE - POCT INTERFACED (09/17/2024 12:17 PM CDT) [facility] Creatinine POCT 0.87 0.30 - 1.30 mg/dL 09/17/2024 12:20 PM CDT [facility] eGFR 78(L) >=90 mL/min/1.7 3 m2 09/17/2024 12:20 PM CDT [facility] Blood BLOOD SPECIMEN / Unknown 09/17/2024 12:17 PM CDT 09/17/2024 12:20 PM CDT us Davi Sesay DO LAB - POINT OF CARE ORDERABLES F inal Result [facility] [address] [place] [phone], [facility] [phone] * (ABNORMAL) GLUCOSE - POINT OF CARE (09/17/2024 11:22 AM CDT) Pathologist [facility] Glucose WB/POC 117(H) 70 - 115 mg/dL 09/17/2024 11:27 AM CDT [facility] Specimen Type Cap Fingerstick 2023 11:27 AM CDT [facility] Blood BLOOD SPECIMEN / Unknown 09/17/2024 11:22 AM CDT 09/17/2024 11:27 AM CDT us Davi Sesay DO LAB - POINT OF CARE ORDERABLES F inal Result [facility] [address] [place] [address], [facility] [phone] documented in this encounter Visit Diagnoses Diagnosis Multiple myeloma, remission status unspecified (HCC) documented in this encounter Administered Medications Active Administered Medications - up to 3 most recent administrations Medication Order MAR Action Action Date Dose Rate Site albuterol-ipratropium (Duo-Neb) nebulizer solution 3 mL 3 mL, Inhalation, POST-OP MULTIPLE, Starting on Fri09/17/24 at 1421, Until Discontinued, For wheezing. Notify anesthesia immediately., PACU diphenhydrAMINE (Benadryl) injection 25 mg 25 mg, Intravenous, ONCE PRN, Nausea/Vomiting, 1 dose, Starting on Fri09/17/24 at 1421, Until Discontinued, Second choice, use if first choice was ineffective., PACU fentaNYL (PF) (Sublimaze) injection 25 mcg 25 mcg, Intravenous, EVERY 10 MIN PRN, Mild Pain, 4 doses, Starting on Fri09/17/24 at 1421, Until Discontinued, Maximum total of 4 doses. If patient reaches max total dose, please consult anesthesiologist prior to further administration of pain meds. Hold pain meds if there are signs of hypoventilation. Patient preference for lesser PRN pain meds may be honored when the patient requests a less strong medication, a lower dose, or a less intrusive route of administration when the lesser drug, dose and route have been ordered for the patient. This patient request must be documented in the MAR. If both oral and IV options are ordered for the same pain severity, give oral first unless patient cannot tolerate oral intake, PACU fentaNYL (PF) (Sublimaze) injection 50 mcg 50 mcg, Intravenous, EVERY 10 MIN PRN, Moderate Pain, 3 doses, Starting on Fri09/17/24 at 1421, Until Discontinued, Maximum total of 4 doses. If patient reaches max total dose, please consult anesthesiologist prior to further administration of pain meds. Hold pain meds if there are signs of hypoventilation. Patient preference for lesser PRN pain meds may be honored when the patient requests a less strong medication, a lower dose, or a less intrusive route of administration when the lesser drug, dose and route have been ordered for the patient. This patient request must be documented in the MAR. If both oral and IV options are ordered for the same pain severity, give oral first unless patient cannot tolerate oral intake, PACU hydrALAZINE (Apresoline) injection 5 mg 5 mg, Intravenous, POST-OP MULTIPLE, 4 doses, Starting on Fri09/17/24 at 1421, Until Discontinued, IV given slowly over 1 minute, up to 20 mg. Repeat 5 mg IV dose every 10-15 minutes for sustained hypertension SBP greater than 180, DBP greater than 100., PACU HYDROmorphone (Dilaudid) injection 0.5 mg 0.5 mg, Intravenous, EVERY 10 MIN PRN, Severe Pain, 4 doses, Starting on Fri09/17/24 at 1421, Until Discontinued, Maximum total of 4 doses If patient reaches max total dose, please consult anesthesiologist prior to further administration of pain meds. Hold pain meds if there are signs of hypoventilation. Patient preference for lesser PRN pain meds may be honored when the patient requests a less strong medication, a lower dose, or a less intrusive route of administration when the lesser drug, dose and route have been ordered for the patient. This patient request must be documented in the MAR. If both oral and IV options are ordered for the same pain severity, give oral first unless patient cannot tolerate oral intake, PACU labetalol (Normodyne; Trandate) injection 5 mg 5 mg, Intravenous, POST-OP MULTIPLE, 4 doses, Starting on Fri09/17/24 at 1421, Until Discontinued, IV given slowly over 1 minute up to 20 mg. Repeat every 10-15 minutes in 5 mg doses. Hold if heart rate is less than 60. Give for hypertension SBP greater than 180, DBP greater than 100., PACU lactated ringers infusion at 20 mL/hr, Intravenous, PRE-OP CONTINUOUS, Starting on Fri09/17/24 at 1100, Until Discontinued, Pre-op naloxone (Narcan) injection 0.04 mg 0.04 mg, Intravenous, POST-OP MULTIPLE, Starting on Fri09/17/24 at 1421, Until Discontinued, Notify physician immediately, and mix 0.4 mg Naloxone in 9 mL Normal Saline for slow IV push. Administer dilute Naloxone solution IV very slowly (1 mL over 30 seconds) while observing the patient response and titrating to effect. If no response, call Rapid Response, continue IV Naloxone at the same rate up to a total of 0.8 mg of diluted Naloxone., PACU prochlorperazine (Compazine) injection 10 mg 10 mg, Intravenous, ONCE PRN, Nausea/Vomiting, 1 dose, Starting on Fri09/17/24 at 1421, Until Discontinued, First choice, PACU Inactive Administered Medications - up to 3 most recent administrations Medication Order MAR Action Action Date Dose Rate Site gadobutrol (Gadavist) injection Intravenous, CONTRAST ONCE, Starting on Fri09/17/24 at 1346, Until 09/19/24 at 1345 $ Given - Contrast 09/17/2024 1:46 PM CDT 10 mL documented in this encounter Care Teams Hotel Manager Relationship Specialty Start Date End Date Yaneth Gage APRN-BMW SERVICE TECHNICIAN [address] [place] [phone] PCP - General 10/01/22 Davi Sesay DO Hematology and Oncology 09/03/19 Saira Tejada MD [address] [place] [address] Hematology and Oncology 09/03/19 Nohemy Andrews APRN-BMW SERVICE TECHNICIAN [address] [place] [address] Family Medicine 09/03/19 Lina Figueroa, TIRE MOLD TESTER Typing Secretary 09/03/19 Luis Delaney MD Hematology and Oncology 09/03/19 Cecy Henriquez, PharmD 09/03/19 Irene Barton, RN Registered Nurse 09/20/19 Massiel Troy, RN Registered Nurse 02/27/22 Nohemy Andrews, PREMIUM CANCELLATION CLERK-[facility] Family Medicine 02/27/22 Dianna Barbosa PREMIUM CANCELLATION CLERK-[facility] [address] [facility] [place] [address] Advance Practice Nurse Family Medicine 02/27/22 Farnaz Arnett, RN 02/27/22 documented as of this encounter
--- OUTSIDE RECORDS SUMMARY | 2025-07-13 14:59 | XMS_ITS | Encounter Summary ---
Author Organization [facility] Address [address] [place] [address] Care Team Providers Care Spray Blender Name Role Phone Davi Sesay DO Unavailable Saira Tejada MD Unavailable Juliana, Nohemy Singletary FRENCH POLISHER-ADVERTISING ASSOCIATE Unavailable [phone] Lina FigueroaW Unavailable Unavailab Luis Rodarte MD Unavailable [phone] Cecy Henriquez PharmD Unavailable Unavaila ble Irene Barton RN Unavailable Unavaila Massiel Adames RN Unavailable Unavailable Nohemy Andrews FRENCH POLISHER-ADVERTISING ASSOCIATE Unavailable [phone] Dianna Barbosa FRENCH POLISHER-ADVERTISING ASSOCIATE Unavailable [phone] Farnaz Arnett RN Unavailable Unavailable Yaneth Gage [facility] Primary Care Provide r Encounter Details Date Type Department Care Team (Late st Contact Info) Description 11/18/2022 Telephone [facility] [address] [place] [address] Tea Carrillo MD No Information available Social History Tobacco Use Types Packs/Day Years Used Date Smoking Tobacco: Every Day Cigarettes 0.5 37.5 Started: 07/01/1982; Last attempted to quit: 12/27/2019 Smokeless Tobacco: Never Alcohol Use Standard Drinks/Week Comments Not Currently 0 (1 standard drink = 0.6 oz pur e alcohol) Comments No Sex and Gender Information Value Date Recorded Sex Assigned at Not on file 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 Answer Date of Assessment Author No 01/03/2020 5:57 AM Mily Walter RN * Is person blind or have serious difficulty seeing? Answer Date of Assessment Author No 01/03/2020 5:57 AM Mily Walter RN * Does person have serious difficulty walking/climbing stairs? Answer Date of Assessment Author No 01/03/2020 5:57 AM Mily Walter RN * Does person have difficulty dressing/bathing? Answer Date of Assessment Author No 01/03/2020 5:57 AM Mily Walter RN * Does person have difficulty doing errands alone? Answer Date of Assessment Author Yes 01/03/2020 5:57 AM Mily Walter RN documented as of this encounter Mental Status * Does person have difficulty concentrating/remembering/making decisions? Answer Entry Date Author Yes 01/03/2020 5:57 AM Mily Walter RN documented in this encounter Miscellaneous Notes * Telephone Encounter - Dustin Guerra - 11/18/2022 1:47 PM CST Juany with [facility] calling to request a Refill: Doxycycline/100mg tab. Pharmacy will fax refill request to [phone], please call [phone] or Fax script to Pharmacy at [phone]. WORK ASSEMBLER documented in this encounter Plan of Treatment Not on file documented as of this encounter Visit Diagnoses Not on filedocumented in this encounter Care Teams Spray Blender Relationship Specialty Start Date End Date Yaneth Gage APRN-ADVERTISING ASSOCIATE [address] [place] [id number] PCP - General 10/01/22 Davi Sesay DO Hematology and Oncology 09/03/19 Saira Tejada MD [address] [place] [address] Hematology and Oncology 09/03/19 Nohemy Andrews APRN-[facility] [address] [place] [address] Family Medicine 09/03/19 Lina Figueroa, ORACLE HYPERION CONSULTANT Abstract Manager 09/03/19 Luis Delaney MD Hematology and Oncology 09/03/19 Cecy Henriquez, PharmD 09/03/19 Irene Barton, JR Registered Nurse 09/20/19 Massiel Troy RN Registered Nurse 02/27/22 Nohemy Andrews APRN-ADVERTISING ASSOCIATE Family Medicine 02/27/22 Dianna Barbosa APRN-ADVERTISING ASSOCIATE [facility] [address] OF HEMATOLOGY & [place] [address] Advance Practice Nurse Family Medicine 02/27/22 Farnaz Arnett RN 02/27/22 documented as of this encounter
--- OUTSIDE RECORDS SUMMARY | 2025-07-13 14:59 | XMS_ITS | Encounter Summary ---
Author Organization [facility] Address [address] [place] [address] Phone Care Team Providers Care Service Desk Associate Name Role Phone Yaneth Gage APRN, CNP Primary Care Provid er Davi Sesay DO Unavailable [phone] Saira Tejada MD Unavailable [phone] Encounter Details Date Type Department Care Team (Late st Contact Info) Description 05/06/2022 Telephone [facility] [place] [address] [place] [address] Davi Sesay, DO [address] [place] [address] Social History Tobacco Use Types [...] Exposure Response Date Recorded In the last 10 days, have yo u been in contact with someone who was confirmed or suspected to have Coronavirus/COVID-19? No / Unsure 04/08/2022 9:35 AM CDT documented as of this encounter Miscellaneous Notes * Telephone Encounter - Rachell Sandoval - 05/06/2022 10:27 AM CDT PT LOST HER CAR KEYS. RESCHEDULE HER FOR 05/10 @ 11:30 documented in this encounter Plan of Treatment Upcoming Encounters Date Type Department Care Team (Late st Contact Info) Description 07/26/2025 10:35 AM CDT Lab [facility] [address] [address] Lab, [facility] 07/26/2025 10:45 AM CDT Office Visit [facility] [address] [phone] Davi Sesay DO [address] [place] [phone] documented as of this encounter Visit Diagnoses Not on filedocumented in this encounter Additional Health Concerns Assessment Noted Time PHQ-9 Depression Total Score: 18 022 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
--- OUTSIDE RECORDS SUMMARY | 2025-07-13 14:59 | XMS_ITS | Encounter Summary ---
Author Organization [facility] Address [address] [facility] [place] [address] Care Team Providers Care Plodding Machine Operator Name Role Phone Davi Sesay DO Unavailable Saira Tejada MD Unavailable [phone] Nohemy Andrews BOATING SAFETY OFFICER-VIDEO PRODUCTION INTERN Unavailable [phone] Kamala Hood RN Unavailable Unavailable Lina Figueroa LCSW Unavailable Unavailab Thomas Stoddard MD Unavailable [phone] Luis Delaney MD Unavailable [phone] Christine Aguilera MD Unavailable [phone] Cecy HenriquezD Unavailable Unavaila Keara Niño Unavailable Unavailable Debby Rebolledo RN Unavailable UnavailJaye Kruger RN Unavailable Unavailable Irene Barton RN Unavailable Unavaila Donna Brenner BOATING SAFETY OFFICER-EXTRUDING DEPARTMENT SUPERVISOR Unavailable [phone] Gilmar Prajapati PA-C Unavailable Unavail able Yaneth Gage BOATING SAFETY OFFICER-VIDEO PRODUCTION INTERN Primary Care Provide r Belen Chacon MD Primary Care Provider [phone] Yaneth Gage BOATING SAFETY OFFICER-VIDEO PRODUCTION INTERN Primary Care Provide r Massiel Troy RN Unavailable Unavailable Nohemy Andrews BOATING SAFETY OFFICER-VIDEO PRODUCTION INTERN Unavailable [phone] Dianna Barbosa APRNPIERCE Unavailable Farnaz Arnett RN Unavailable Unavailable Belen Chacon MD Primary Care Provider [phone] Yaneth Gage Primary Care Provide r Encounter Details Date Type Department Care Team (Late st Contact Info) Description 08/13/2019 Telephone [facility] [address] [place] [address] Zohreh Cary RN Social History Tobacco Use Types Packs/Day Years Used Date Smoking Tobacco: Never Assessed Comments Unknown Sex and Gender Information Value Date Recorded Sex Assigned at Not on file Legal Sex 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 Davi Sesay office since an attempt to do a BMB failed 2/2 body habitus the office at [phone] Was notified that due to the Limited resources the best option is to refer the pt. To [facility] [place] and please include the specific Pathology request instead of requesting Fish Myeloma , flow cytometry and cytogenetic per fax order. . documented in this encounter Plan of Treatment Not on file documented as of this encounter Visit Diagnoses Not on filedocumented in this encounter Care Teams Plodding Machine Operator Relationship Specialty Start Date End Date Yaneth Gage APRN-CNP [address] [place] [address] PCP - General 11/03/19 10/03/21 Belen Chacon MD [address] [place] [address] PCP - General Family Medicine 10/04/21 10/04/21 Yaneth Gage BOATING SAFETY OFFICER-[facility] [address] [place] [phone] PCP - General 10/05/21 08/22/22 Belen Chacon MD [address] [place] [address] PCP - General Family Medicine 08/23/22 09/30/22 Yaneth Gage BOATING SAFETY OFFICER-VIDEO PRODUCTION INTERN [address] [facility] [place] [place] [phone] PCP - General 10/01/22 Davi Sesay DO Hematology and Oncology 09/03/19 Saira Tejada MD [address] [place] [address] Hematology and Oncology 09/03/19 Nohemy Andrews APRN-[facility] [address] [place] [address] Family Medicine 09/03/19 Kamala Hood, JR Registered Nurse 09/03/19 01/01/22 Lina Figueroa, LAUNDRY SUPERINTENDENT Bandoleer Straightener Stamper 09/03/19 Thomas Wiggins MD Hematology and Oncology 09/03/19 01/01/22 Luis Delaney MD Hematology and Oncology 09/03/19 Christine Aguilera MD [address] [place], [place] [phone] Hematology and Oncology 09/03/19 01/26/20 Cecy Henriquez, PharmD 09/03/19 Keara Baker 09/03/19 04/30/21 Debby Rebolledo, RN Registered Nurse 09/20/19 02/26/22 Jaye Johnson, RN Registered Nurse 09/20/19 02/26/22 Irene Barton, RN Registered Nurse 09/20/19 Donna Meyers, BOATING SAFETY OFFICER-EXTRUDING DEPARTMENT SUPERVISOR [address] [place] [address] Oncology 09/20/19 02/26/22 Gilmar Prajapati PA-C [address] [place] [address] Physician Paint Factory Worker 09/20/19 0 Massiel Troy RN Registered Nurse 02/27/22 Nohemy Andrews, BOATING SAFETY OFFICER-VIDEO PRODUCTION INTERN Family Medicine 02/27/22 Dianna Barbosa BOATING SAFETY OFFICER-VIDEO PRODUCTION INTERN [address] [facility] HEMATOLOGY [place] [address] Advance Practice Nurse Family Medicine 02/27/22 Farnaz Arnett, RN 02/27/22 documented as of this encounter
[2025-07-13 15:03] VITALS: BP 187/103; PULSE 94; RESP 16; TEMP 36.3; O2SAT 98
--- OUTSIDE RECORDS SUMMARY | 2025-07-13 17:53 | XMS_ITS | Encounter Summary ---
Author Organization [facility] Address [address] [place] [address] Phone Care Team Providers Care Pinion Polisher Name Role Phone Yaneth Gage APRN, CNP Primary Care Provid er Davi Sesay DO Unavailable [phone] Saira Tejada MD Unavailable [phone] Encounter Details Date Type Department Care Team (Late st Contact Info) Description 10/27/2020 Telephone [facility] [place] [address] [place] [address] Davi Sesay, DO [address] [place] [address] Social History Tobacco Use Types [...] COVID-19? 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 WAS ABLE TO SCHEDULE PATIENT FOR 10/30 @ 2:15 ONAL SALES ASSOCIATE documented in this encounter Plan of Treatment Upcoming Encounters Date Type Department Care Team (Late st Contact Info) Description 07/26/2025 10:35 AM CDT Lab [facility] [address] [phone] Lab, [facility] 07/26/2025 10:45 AM CDT Office Visit [facility] [address] [phone] Davi Sesay DO [address] [place] [phone] documented as of this encounter Visit Diagnoses Not on filedocumented in this encounter Additional Health Concerns Assessment Noted Time PHQ-9 Depression Total Score: 0 09/26/20 20 9:15 AM CDT documented as of this encounter Care Teams Pinion Polisher Relationship Specialty Start Date End Date Yaneth Gage APRN, EDUCATION RESEARCH ANALYST [address] [place] [address] PCP - General Certified Nurse Practitioner 06/30/19 Davi Sesay DO [address] [place] [address] Consulting Physician Oncology 07/05/19 Saira Tejada MD [address] [place] [address] Consulting Physician 09/06/19 documented as of this encounter
--- OUTSIDE RECORDS SUMMARY | 2025-07-13 17:53 | XMS_ITS | Encounter Summary ---
Author Organization [facility] Address [address] [place] [address] Phone Care Team Providers Care Special Machine Operator Name Role Phone Yaneth Gage APRN, CNP Primary Care Provid er Davi Sesay DO Unavailable [phone] Saira Tejada MD Unavailable [phone] Encounter Details Date Type Department Care Team (Late st Contact Info) Description 12/04/2020 Telephone [facility] [place] [address] [place] [address] Davi Sesay, DO [address] [place] [address] Social History Tobacco Use Types [...] FORGOT ABOUT APPT BUT SHE IS RESCHEDULED. TENANCE TECHNICIAN 3RD SHIFT documented in this encounter Plan of Treatment Upcoming Encounters Date Type Department Care Team (Late st Contact Info) Description 07/26/2025 10:35 AM CDT Lab [facility] [address] [address] Lab, [facility] 07/26/2025 10:45 AM CDT Office Visit [facility] [address] [phone] Davi Sesay DO [address] [place] [phone] documented as of this encounter Visit Diagnoses Not on filedocumented in this encounter Additional Health Concerns Assessment Noted Time PHQ-9 Depression Total Score: 0 10/30/20 20 2:56 PM MAINTENANCE TECHNICIAN 3RD SHIFT documented as of this encounter Care Teams Special Machine Operator Relationship Specialty Start Date End Date Yaneth Gage APRN, CNP [address] [place] [address] PCP - General Certified Nurse Practitioner 06/30/19 Davi Sesay DO [address] [place] [address] Consulting Physician Oncology 07/05/19 Saira Tejada MD [address] [place] [address] Consulting Physician 09/06/19 documented as of this encounter
--- OUTSIDE RECORDS SUMMARY | 2025-07-13 17:54 | XMS_ITS | Encounter Summary ---
Author Organization [facility] Address [address] [place] [address] Phone Care Team Providers Care Funding Coordinator Name Role Phone Yaneth Gage APRN, CNP Primary Care Provid er Davi Sesay DO Unavailable [phone] Saira Tejada MD Unavailable [phone] Encounter Details Date Type Department Care Team (Late st Contact Info) Description 04/03/2022 Telephone [facility] [place] [address] [place] [address] Thomas aRusch MD [address] [place] [phone] Social History Tobacco Use Types Packs/Day [...] 10:35 AM CDT Lab [facility] [address] [phone] Lab, [facility]c [facility] 07/26/2025 10:45 AM CDT Office Visit [facility] [address] [phone] Davi Sesay DO [address] [place] [phone] documented as of this encounter Visit Diagnoses Not on filedocumented in this encounter Additional Health Concerns Assessment Noted Time PHQ-9 Depression Total Score: 18 022 8:49 AM JUICE WEIGHER documented as of this encounter Care Teams Funding Coordinator Relationship Specialty Start Date End Date Yaneth Gage APRN, PIERCE [address] [place] [address] PCP - General Certified Nurse Practitioner 06/30/19 Davi Sesay DO [address] [place] [address] Consulting Physician Oncology 07/05/19 Saira Tejada MD [address] [place] [address] Consulting Physician 09/06/19 documented as of this encounter
--- OUTSIDE RECORDS SUMMARY | 2025-07-13 17:54 | XMS_ITS | Clinical Summary ---
Author Organization [facility] Address [address], [address] [place] [address] Phone Care Team Providers Care Chief Catalyst Operator Name Role Phone Yaneth Gage APRN, CNP Primary Care Provid er Davi Sesay DO Unavailable [phone] Saira Tejada MD Unavailable [phone] Allergies Active Allergy Reactions Criticality Noted [...] Tablet 09/27/20 19 Active ergocalciferol (VITAMIN D) 89825 UNIT Capsule Take 50,000 Units by mouth. [...] Description 07/13/2025 Telephone [facility] [address] [phone] Davi Sesay, DO appeal decision 07/07/2025 Refill [facility] [address] [phone] Davi Sesay, DO 06/28/2025 10:45 AM CDT Office Visit [facility] [address] [phone] Rachell Brooks, FOREIGN EXCHANGE STUDENT COORDINATOR, PATTERN GRADER SUPERVISOR Multiple myeloma, remission status unspecified (HCC) (Primary Dx); Pain in thoracic spine 06/28/2025 10:35 AM CDT Lab [facility] [address] [phone] Lab, [facility] Multiple myeloma, remission status unspecified (HCC); Lytic lesion of bone on x-ray; Abnormal positron emission tomography (PET) scan 06/28/2025 Refill [facility] [address] [phone] Davi Sesay, DO Medication Refill 06/28/2025 Travel 06/13/2025 Refill [facility] [address] [phone] Davi Sesay, DO Medication Refill 05/13/2025 10:30 AM CDT Office Visit [facility] [address] [phone] Davi Sesay, DO Multiple myeloma, remission status unspecified (HCC) (Primary Dx) 05/13/2025 Travel 05/09/2025 Telephone [facility] [address] [phone] Davi Sesay, DO Canopy Call / Updated Mamogram orders 05/02/2025 Refill [facility] [address] [phone] Davi Sesay DO 04/12/2025 Telephone [facility] [address] [phone] Davi Sesay, DO from Last 3 Months Immunizations Immunization Administration Dates Next Due Covid-19, Mrna, Lnp-s, Pf, 3 0 Mcg/0.3 Ml Dose (Engrade) 07/17/2021 DTAP VACCINE 12/12/2020,09/08/2020,07/07/2020 HEP A/HEP B [...] AM CDT Lab [facility] [address] [phone] Lab, [facility] 07/26/2025 10:45 AM CDT Office Visit [facility] [address] [phone] Davi Sesay, DO [address] [place] [phone] Health Maintenance Due Date Last Done Comments [...] 06/28/2025 10:45 AM CDT COMP. METABOLIC PANEL [id number] [place] Routine 06/28/2025 10:45 AM CDT IMMUNOGLOBULINS A/G/M [id number] [place] Routine 06/28/2025 10:45 AM CDT FLOW MYE/LYM + ACUTE [place] OH A039-0 Routine 06/28/2025 10:45 AM CDT PROTHROMBIN TIME (PT) [id number] [place] Routine 06/28/2025 10:45 AM CDT ELECTROPHORESIS [...] W CONTRAST Routine 01/24/2023 1 :36 PM CYLINDER TESTER Multiple myeloma, remission status unspecified (HCC) from Last 3 Months or Most Recently Relevant to Health Maintenance Results * SERUM FREE LIGHT CHAINS, [place] (06/28/2025 10:45 AM CDT) FREE KAPPA LT CHAINS 19.4 2.9 - 20.7 mg/L [facility] FREE LAMBDA LT CHAINS 19.5 4.2 - 27.6 mg/L [facility] KAPPA/LAMBDA RATIO 0.99 0.22 - 1.74 [facility] 06/28/2025 10:4 5 AM CDT us Davi Sesay DO LAB SEND OUTS Final Result [facility] PH[facility]ICIST NUCLE[facility] [address] [place] [address], [place] [phone] * IMMUNOGLOBULINS A/G/M [id number] [place] (06/28/2025 10:45 AM CDT) IMMUNOGLOBULIN G, QN, SERUM 1,109 586 - 1,602 MG/DL [facility] IMMUNOGLOBULIN A, QN, SERUM 209 87 - 352 MG/DL [facility] IMMUNOGLOBULIN M, QN, SERUM 58 26 - 217 MG/DL [facility] 06/28/2025 10:4 5 AM CDT Narrative [facility] - 06/29/2025 7:08 AM CDT TESTING PERFORMED AT: [] [facility], [address] [place] [address], [address], PHONE: [phone], SERVICE CENTER ASSISTANT: JOEY MOSQUERA, PHD us Davi Sesay DO LAB SEND OUTS Final Result Performing Organization Address [facility]/ZIP Co de Phone Number [facility] PHYSICIST NUCLEAR [facility] [address] [place] [address], [place] [phone] * (ABNORMAL) COMP. METABOLIC PANEL [id number] [place] (06/28/2025 10:45 AM CDT) GLUCOSE, SERUM 174(H) 70 - 99 MG/DL [facility] BUN 16 6 - 24 MG/DL [facility] CREATININE, SERUM 0.97 0.57 - 1.00 MG/DL [facility] EGFR 68 >59 ML/MIN/1.7 3 [facility] BUN/CREATININE RATIO 16 9 - 23 [facility] SODIUM, SERUM 142 134 - 144 MMOL/L [facility] PH[facility]IC[facility] POTASSIUM, SERUM 3.6 3.5 - 5.2 MMOL/L [facility] CHLORIDE, SERUM 106 96 - 106 MMOL/L [facility] CARBON DIOXIDE, TOTAL 21 20 - 29 MMOL/L [facility] CALCIUM, SERUM 9.2 8.7 - 10.2 MG/DL [facility] PROTEIN, TOTAL, SERUM 6.6 6.0 - 8.5 G/DL [facility] ALBUMIN, SERUM 4.1 3.8 - 4.9 G/DL [facility] GLOBULIN, TOTAL 2.5 1.5 - 4.5 G/DL [facility] BILIRUBIN, TOTAL 0.2 0.0 - 1.2 MG/DL [facility] ALKALINE PHOSPHATASE, S 93 44 - 121 IU/L [facility] AST (SGOT) 14 0 - 40 IU/L [facility] ALT (SGPT) 12 0 - 32 IU/L [facility] 06/28/2025 10:4 5 AM CDT Narrative [facility] - 06/29/2025 7:08 AM CDT TESTING PERFORMED AT: [] [address], [address], PHONE: [phone], SERVICE CENTER ASSISTANT: JOEY MOSQUERA, PHD us Davi Sesay DO LAB SEND OUTS Final Result [facility] [address] [place] [address], * PROTHROMBIN TIME (PT) [id number] [place] (06/28/2025 10:45 AM CDT) INR 1.0 0.9 - 1.2 [facility] Comment: REFERENCE INTERVAL IS FOR NON-ANTICOAGULATED PATIENTS. SUGGESTED INR THERAPEUTIC RANGE FOR VITAMIN K ANTAGONIST THERAPY: STANDARD DOSE (MODERATE INTENSITY THERAPEUTIC RANGE): 2.0 - 3.0 HIGHER INTENSITY THERAPEUTIC RANGE 2.5 - 3.5 PROTHROMBIN TIME 10.8 9.1 - 12.0 SEC [facility] PHYSICIST NUCLEAR [facility] 06/28/2025 10:4 5 AM CDT Narrative [facility] PHYSICIST NUCLEAR [facility] - 06/29/2025 7:08 AM CDT TESTING PERFORMED AT: [] [facility], [address] [place] [address], [address], PHONE: [phone], SERVICE CENTER ASSISTANT: JOEY MOSQUERA, PHD Davi Sesay DO LAB SEND OUTS Final Result Performing Organization Address [facility] Co de Phone Number [facility] PHYSICIST NUCLEAR [facility] [address] [address], [place] [phone] * IMMUNOFIXATION, SERUM [place] (06/28/2025 10:45 AM CDT) IMMUNOFIXATION RESULT, SERUM COMMENT [facility] PH[facility]ICIST [facility]UC[facility]AR [facility] Comment:NO MONOCLONALITY DET ECTED. 06/28/2025 10:4 5 AM CDT Narrative [facility] - 06/30/2025 3:09 PM CDT TESTING PERFORMED AT: [] [facility] [address] [place] [address], [place], [address], PHONE: [phone], SERVICE CENTER ASSISTANT: JOEY MOSQUERA, PHD Release to patient->Immediate us Davi Sesay DO LAB SEND OUTS Final Result Performing Organization Address [facility] Co de Phone Number [facility] PHYSICIST NUCLEAR [facility] [place] [address] [place] [address], [place] [phone] * (ABNORMAL) CBC WITH AUTO DIFF [place] (06/28/2025 10:45 AM CDT) WBC 8.0 4.0 - 10.0 10*3/uL [facility] HGB 14.8 11.2 - 15.7 g/dL [facility] PHYSICIST NUCLEAR [facility] HCT 46.1(H) 34.1 - 44.9 % [facility] PHYSICIST NUCLEAR [facility] PLT 169 163 - 369 10*3/uL [facility] PHYSICIST NUCLEAR [facility] MPV 10.6 9.4 - 12.4 fL [facility] PHYSICIST NUCLEAR [facility] RBC 5.32(H) 3.93 - 5.22 10*6/uL [facility] PHYSICIST NUCLEAR [facility] MCV 87 79 - 95 fL [facility] PHYSICIST NUCLEAR [facility] MCH 27.8 25.6 - 32.2 pg [facility] PHYSICIST NUCLEAR [facility] MCHC 32.1(L) 32.2 - 36.5 g/dL [facility] PHYSICIST NUCLEAR [facility] RDW 14.6(H) 11.6 - 14.4 % [facility] PH[facility]IST [facility]UC[facility]AR [facility] Neutrophils % 47.5 36.0 - 66.0 % [facility]ICIST [facility]UC[facility]AR [facility] Lymphocytes % 42.0(H) 19.0 - 40.0 % [facility] Monocytes % 6.8 4.1 - 12.1 % [facility] Eosinophils % 3.0 0.0 - 3.5 % [facility] Basophils % 0.5 0.0 - 1.0 % [facility] Absolute Neutrophils 3.8 1.4 - 6.6 10*3/uL [facility]IST [facility] Absolute Lymphocytes 3.4 0.8 - 4.0 10*3/uL [facility]IST NUC[facility]AR [facility] Absolute Monocytes 0.6 0.2 - 1.2 10*3/uL [facility]UC[facility] Absolute Eosinophils 0.2 0.0 - 0.4 10*3/uL [facility]IST [facility] Absolute Basophils 0.0 0.0 - 0.1 10*3/uL [facility] 06/28/2025 10:4 5 AM CDT us Davi Sesay DO LAB SEND OUTS Final Result [facility] PHYSICIST NUCLEAR [facility] [address] [place] [address], * FLOW MYE/LYM + ACUTE [place] A039-0 (06/28/2025 10:45 AM CDT) ACUTE 10 COLOR PANEL Negative [facility] PHYSICIST NUCLEAR [facility] Comment: INTERPRETATION PERIPHERAL BLOOD: - Flow cytometric [...] T-LGL cells comprise 3.53%. DISCLAIMER: Antibodies Analyzed: CD19,CD20,CD10,CD11c,CD23,CD22,CD25,CD71,CD81,CD103,CD200,Perris,L ambda,CD2,CD3,CD4,CD5,CD7,CD8,CD56,CD57,CD11b,CD13,CD14,CD15,CD16 ,CD33,CD64,CD34,CD38,CD117,CD123,CD133,HLA-DR,CD45. - This test was developed and its performance characteristics determined by [employer]. It has not been cleared or approved [...] SIGNATURE: Kaleb Torres M.D., Ph.D. Hematopathologist, ex. [phone] This report was electronically signed. 06/28/2025 10:4 5 AM CDT [facility] - 06/30/2025 9:15 AM CDT Testing performed at: [facility]. [address] [place] [address]. [place] [address], Secondary History Teacher: Dr. Bairon Wang M.D.; [facility] Accn#:[id number] us Davi Hough Lázaro DO LAB SEND OUTS Final Result [facility] PHYSICIST NUCLEAR [facility] [place] [address], * MULTIPLE MYELOMA FISH PANEL UT 5282-9 (06/28/2025 10:45 AM CDT) GP/BCL-1,T(11;14),FIS H Negative [facility] PHYSICIST NUCLEAR [facility] IGH/CCND1 for t(11;14) - Normal Nuclei 100.00 % [facility] Comment: INTERPRETATION : No evidence of CCND1-IGH [translocation t(11;14)] gene rearrangement, and no evidence for trisomy 11 or gain of 11q. PROBE TYPE : Dual Color / Dual Fusion CATALOG ID: [employer] CL CCND1/IGH [id number] ISCN NOMENCLATURE: nuc jasmin(CCND1,IGH)x2[300] NORMAL BACKGROUND CUTOFF [...] methodology. Automated imaging analysis performed using the Reppler Imaging System on a Biomedix vascular solution slide scanning platform, [employer] [facility], [place], Zach FGFR3,RB1,BCL1,P53,1q 21-FISH Negative [facility] PHYSICIST NUCLEAR [facility] FGFR3/IGH rearrangement - Normal Nuclei 100.00 % [facility] Comment: INTERPRETATION : No evidence of FGFR3-IGH [translocation t(4;14)] gene rearrangement. PROBE TYPE : Dual Color, Dual Fusion CATALOG ID: [employer] XL t(4;14) [id number] [facility] NOMENCLATURE: nuc jasmin(FGFR3, IGH)x2[300] NORMAL [...] methodology. Automated imaging analysis performed using the Reppler Imaging System on a Biomedix vascular solution slide scanning platform, [employer] [facility], [facility] GP/P53/F54X944/CAROL/+1 2 Negative [facility]ER PHYSICIST NUCLEAR [facility] CL TP53 for 17p13 - Normal Nuclei 95.00 % [facility] CL TP53 for 17p13 - Positive Nuclei with p53 deletion 5.00 % [facility] Comment: INTERPRETATION : No evidence of p53 (17p13) deletion or amplification. PROBE TYPE : Single Color CATALOG ID: [employer] [id number] [facility] NOMENCLATURE: nuc jasmin([id number])x2[300] NORMAL BACKGROUND CUTOFF VALUE(S): (PB and BM): 7.3%, 5.5% if immunomagnetically enriched (BM), 3% for FFPE Note: Positive signals detected below the determined cutoff value are considered a negative result. For any given probe, a cutoff value is determined by serial analysis of normal cases, and is an artifact inherent to the methodology. Automated imaging analysis performed using the Reppler Imaging System on a Biomedix vascular solution slide scanning platform, [employer], [facility] FGFR3,RB1,BCL1,P53,1q 21-FISH Negative [facility]ER PHYSICIST NUCLEAR [facility] 1Q21/CKS1B - NORMAL NUCLEI - 1 100.00 % [facility] Comment: INTERPRETATION : Negative for 1q21/CKS1B gain PROBE TYPE : Dual Color CATALOG ID: [employer] Order Number [id number] [facility] NOMENCLATURE: nuc jasmin(CKS1B,CDKN2C)x2[300] NORMAL BACKGROUND [...] methodology. Automated imaging analysis performed using the Reppler Imaging System on a Biomedix vascular solution slide scanning platform, [employer] [facility] FGFR3,RB1,BCL1,P53,1q 21-FISH Negative [facility] RB1 for 13q14 - Normal Nuclei 96.00 % [facility] RB1 for 13q14 - Nuclei with RB1 Monosomy 4.00 % [facility] Comment: INTERPRETATION : No evidence of RB1 monosomy (13q14 deletion). PROBE TYPE : Single Color CATALOG ID: [employer] [id number] [facility] NOMENCLATURE: nuc jasmin([id number])x2[300] NORMAL BACKGROUND CUTOFF VALUE(S): (PB and BM): 6.5%, 5.6% if immunomagnetically enriched (BM), 3.1% for FFPE Note: Positive signals detected below the determined cutoff value are considered a negative result. For any given probe, a cutoff value is determined by serial analysis of normal cases, and is an artifact inherent to the methodology. Automated imaging analysis performed using the Reppler Imaging System on a Biomedix vascular solution slide scanning platform, [employer] [facility] FGFR3,RB1,BCL1,P53,1q 21-FISH Negative [facility] IGH/MAF for t(14;16) - Normal Nuclei 100.00 % [facility] Comment: INTERPRETATION : No evidence of IGH-MAF [translocation t(14;16)] gene rearrangement PROBE TYPE : Dual Color, Dual Fusion CATALOG ID: [employer] XL [id number] ISCN NOMENCLATURE: nuc jasmin(IGH,MAF)x2[300] NORMAL BACKGROUND CUTOFF [...] methodology. Automated imaging analysis performed using the Reppler Imaging System on a Biomedix vascular solution slide scanning platform, [employer] [facility], [facility], [facility] REFERENCES: 1. Hernando H, Maria Isabel F, Kelby L, et al. Translocation t(14;16) and multiple myeloma: is it really an independent risk factor? Blood 117(6):7203-9224. 2. Slade PL, Sergio WM. Chromosome translocations [...] of recurrent genomic aberrations in myeloma. Blood 101(11):5681-9997. 7. Parrish M, Keerthi M, Gale A, et al. Clinical implications of t(11;14)(q13;32), t(4;14)(p16.2;q32), and -17p13 in myeloma patients treated with high-dose thereapy. Blood 106(8):5639-8653. 8. Jus S and Kulwant F. Cancer Cytogenetics, 3nd edition, Dominguez[employer]Dickey, [employer] 2009. 9. Rashid J, Binu CM, Joana A, et al. Gain of 1q21 and distinct adverse cytogenetic abnormalities correlate with increased microcirculation in multiple myeloma. Int J Cancer: 122(12):9365-9158,2008 10. Skyler JoensJ, Mike A, Saranya TJ, Efren R, Kimmy [...] agent resistance. J Clin Oncol. 2005 Aug 31;23(28):4903-73. Epub 2004Jul 29. 12. Juanita SrivastavaJ, Sravanthi T, Mp CA, et al. In multiple myeloma, t(4;14)(p16;q32) is an adverse prognostic factor irrespective of FGFR3 expression. Blood. 2002 15;101(4):1520-9. Epub 2001Sep 02. 13. Dez U, Nico A, Hidaphneycher T, et al. Chromosomal Aberrations +1q21 and del(17p13) Predict Survival in Patients With Recurrent Multiple Myeloma Treated With Lenalidomide and Dexamethasone. Cancer 117(10):7804-3969,2010 14. Napoleon Ma Fausto. Pathologic Basis of Disease. Elsevier Press, [place], 2004. 15. Joshua JR, Roderick JA, Osbaldo S, Barlogfrancisca B. Cytogenetic findings in 200 patients with multiple myeloma Cancer Gauri Cytogenet. 82:41-49, 1994. 16. [employer] Product Catalog, 2003 17. World Health Organization Classification of Tumors. Tumors of Haematopoietic and Lymphoid Tissues, IARC Press, Alvarado, Siobhan, 2008. ASSOCIATED TESTS: 10-color Flow Cytometry analysis for Acute Leukemia and Myeloid/Lymphoid Neoplasms released on: 06/30/2025 DISCLAIMER: The following probes contain 2 or more separate fluorochromes and are considered multiplex probes: 1q21/CKS1B, 4q12 for PDGFRalpha, AML1/ETO, BCR/ABL1, BCL6, CBFB for inv(16), B9H803/XCE7 for -7/7q-, IGH/BCL2, IGH/CCND1, IGH/FGFR3, IGH/MAF, IGH/MYC, [...] and their performance characteristics were determined by [employer]. They may not be cleared or approved by the U.S. Food and Drug Administration. The FDA does not require these test to go through premarket FDA review. These tests are used for clinical purposes. It should not be regarded as investigational or for research. [employer] is certified under the Clinical Laboratory Improvement Amendments of 1988 CLIA as qualified to perform high complexity clinical testing. ELECTRONIC SIGNATURE: Annette Gutierrez M.D. Hematopathologist, ex. [phone] This report was electronically signed. 06/28/2025 10:4 5 AM CDT [facility] CANCER PHYSICIST NUCLEAR [facility] - 07/05/2025 2:15 PM CDT Testing performed at: [facility]. [address] [place], [place] [address] [place] [address], Secondary History Teacher: Dr. Bairon Wang M.D.; [facility] Accn#:[id number] us Davi Sesay DO PATHOLOGY/CYTOLOGY ORDERABLES Final Result [facility]ER PHYSICIST NUCLEAR [facility] [address] [place] [address], * APTT (PTT) (06/28/2025 10:45 AM CDT) APTT 26 24 - 33 SEC [facility] PHYSICIST NUCLEAR [facility] Comment: THIS TEST HAS NOT BEEN VALIDATED FOR MONITORING UNFRACTIONATED HEPARIN THERAPY. APTT-BASED THERAPEUTIC RANGES FOR UNFRACTIONATED HEPARIN THERAPY HAVE NOT BEEN ESTABLISHED. FOR GENERAL GUIDELINES ON HEPARIN MONITORING, REFER TO THE [facility]. Blood 06/28/2025 10:4 5 AM CDT Narrative [facility]ER PHYSICIST NUCLEAR [facility] - 06/29/2025 8:36 AM CDT TESTING PERFORMED AT: [] [facility], [address] [place] [address], [place], [address], PHONE: [phone], SERVICE CENTER ASSISTANT: JOEY MOSQUERA, PHD Release to patient->Immediate us Davi Sesay DO HEMATOLOGY ORDERABLES Final Re sult [facility] PHYSICIST NUCLEAR [facility] [place] [address] [place] [address], * ELECTROPHORESIS W/ TOTAL PROTEIN SERUM (06/28/2025 10:45 AM CDT) ALBUMIN 3.4 2.9 - 4.4 G/DL [facility] PHYSICIST NUCLEAR [facility] LHMAT-5-OKCMCPMP 0.2 0.0 - 0.4 G/DL [facility] PHYSICIST NUCLEAR [facility] FKTGV-7-OFLGXVCB 0.9 0.4 - 1.0 G/DL [facility] PH[facility]ICIST NUCLEAR [facility] BETA GLOBULIN 1.1 0.7 - 1.3 G/DL [facility] PH[facility]ICIST NUCLEAR [facility] GAMMA GLOBULIN 1.0 0.4 - 1.8 G/DL [facility]ICIST NUCLEAR [facility] M-SPIKE NOT OBSERVED NOT OBSERVED G/DL [facility] PH[facility]ICIST NUCLEAR [facility] GLOBULIN, TOTAL 3.2 2.2 - 3.9 G/DL [facility] PH[facility]ICIST NUCLEAR [facility] A/G RATIO 1.1 0.7 - 1.7 [facility] PLEASE NOTE: COMMENT [facility] PHYSICIST NUCLEAR [facility] Comment: PROTEIN ELECTROPHORESIS SCAN WILL FOLLOW VIA COMPUTER, MAIL, OR REVIEW APPRAISER DELIVERY. PDF . [facility] Blood 06/28/2025 10:4 5 AM CDT Narrative [facility] - 06/29/2025 3:09 PM CDT TESTING PERFORMED AT: [] [facility], [address] [place] [address], [place], [address], PHONE: [phone], SERVICE CENTER ASSISTANT: JOEY MOSQUERA, PHD Release to patient->Immediate us Davi Sesay DO CHEMISTRY ORDERABLES Final Res ult [facility] PHYSICIST NUCLEAR [facility] [place] [address], * (ABNORMAL) CMP (COMPREHENSIVE METABOLIC PANEL) (03/11/2025 9:47 AM CDT) Glucose 204(H) 70 - 105 mg/dL [facility] PHYSICIST NUCLEAR [facility] Blood Urea Nitrogen 10 7 - 25 mg/dL [facility] Creatinine 0.8 0.6 - 1.2 mg/dL [facility] Sodium 144 136 - 145 mEq/L [facility] Potassium 3.4(L) 3.5 - 5.1 mEq/L [facility] Chloride 104 98 - 107 mEq/L [facility] Bicarbonate 31 21 - 31 mEq/L [facility] Total Bilirubin 0.5 0.3 - 1.0 mg/dL [facility] Alk. Phosphatase 81 34 - 104 U/L [facility] Aspartate Aminotransferase 11(L) 13 - 39 U/L [facility] Alanine Aminotransferase 8 7 - 52 U/L [facility] Total Protein 6.6 6.4 - 8.9 g/dL [facility] Albumin 4.1 3.5 - 5.7 g/dL [facility] Calcium 9.7 8.6 - 10.3 mg/dL [facility] Anion Gap 12.4 7.0 - 15.0 mEq/L [facility] Globulin 2.5 2.0 - 3.5 g/dL [facility] PHYSICIST NUCLEAR [facility] EGFR 85 >60 ml/min/1. 73m2 [facility] PHYSICIST NUCLEAR [facility] Comment: This eGFR is calculated using 2020 CKD-EPI Creatinine equation without race modifier based on the NKF-ASN task force recommendations Equation: dCZC=063*min(SCr/k,1)a*max(SCr/k,1)-1.200*0.9938Age*1.012 (if female), where SCr is serum creatinine, k is 0.7 for females and 0.9 for males, and a is -0.241 for females and -0.302 for males Blood 03/11/2025 9:47 AM CDT Narrative [facility] PHYSICIST NUCLEAR [facility] - 03/11/2025 10:40 AM CDT Release to patient->Immediate IS THE PATIENT REQUIRED TO BE FASTING FOR 8 HOURS?->No us Davi Sesay DO CHEMISTRY ORDERABLES Final Res ult CANCER PHYSICIST NUCLEAR [facility] [address] [place] [address], * CT CHEST W CONTRAST (01/24/2023 1:36 PM CYLINDER TESTER) Anatomical Region Laterality Modality Chest N/A Computed Tomogra phy Narrative 01/24/2023 2:59 PM CYLINDER TESTER EXAMINATION: CT CHEST W CONTRAST 01/24/2023 INDICATIONS: [...] Recently Relevant to Health Maintenance Insurance MEDICAID [facility] Care Teams Chief Catalyst Operator Relationship Specialty Start Date End Date Yaneth Gage APRN, PI[address] [place] [address] PCP - General Certified Nurse Practitioner 06/30/19 Davi Sesay DO [address] [place] [address] Consulting Physician Oncology 07/05/19 Saira Tejada MD [address] [place] [address] Consulting Physician 09/06/19
--- OUTSIDE RECORDS SUMMARY | 2025-07-13 17:54 | XMS_ITS | Encounter Summary ---
Author Organization [facility] Address [address] [facility] [place] [address] Care Team Providers Care Drier Operator Name Role Phone Davi Sesay DO Unavailable Saira Tejada MD Unavailable [phone] Juliana, Nohemy Singletary CARDIAC REHAB NURSE-[facility] Unavailable [phone] Lina Figueroa LCSW Unavailable Unavailab Luis Roadrte MD Unavailable [phone] Cecy HenriquezD Unavailable Unavaila ble Irene Barton RN Unavailable Unavaila Massiel Adames RN Unavailable Unavailable JulianaNohemy roman CARDIAC REHAB NURSE[facility] Unavailable [phone] Dianna Barbosa CARDIAC REHAB NURSE-[facility] Unavailable [phone] Farnaz Arnett RN Unavailable Unavailable [facility] Primary Care Provide r Reason for Referral * Radiology Services (Routine) - Closed Specialty Diagnoses / Procedures Referred By Contac t Referred To Contact MRI Diagnoses Multiple myeloma, remission status unspecified (HCC) Procedures MRI BONE MARROW BLOOD SUPPLY Davi Sesay DO [address] [place] [address] Phone: tel: fax: Referral ID Status Reason Start Date Expiration Date Visits Re quested Visits Authorized [id number] Closed 09/09/2024 09/09/2025 1 1 Reason for Visit * Radiology Services (Routine) - Closed Specialty Diagnoses / Procedures Referred By Emily t Referred To Contact MRI Diagnoses Multiple myeloma, remission status unspecified (HCC) Procedures MRI BONE MARROW BLOOD SUPPLY Davi Sesay DO [address] [place] [address] Phone: tel: fax: Referral ID Status Reason Start Date Expiration Date Visits Re quested Visits Authorized [id number] Closed 09/09/2024 09/09/2025 1 1 Encounter Details Date Type Department Care Team (Latest Contact Info) Description 09/17/2024 10:14 AM CDT Hospital Encounter [facility]R [address] [place] [address] Davi Sesay DO [address] [place] [address] Thor Lamb MD [address] [facility] [address] [facility] [place] [address] Interven Radiology Social History Tobacco Use Types [...] on file 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 Never 09/17/2024 12:13 PM LYNDSAYT Sang Bird RN Q2: How many drinks [...] - POCT INTERFACED (09/17/2024 12:17 PM CDT) [facility] Creatinine POCT 0.87 0.30 - 1.30 mg/dL 09/17/2024 12:20 PM CDT [facility] eGFR 78(L) >=90 mL/min/1.7 3 m2 09/17/2024 12:20 PM CDT [facility] Blood BLOOD SPECIMEN / Unknown 09/17/2024 12:17 PM CDT 09/17/2024 12:20 PM CDT us Davi Sesay DO LAB - POINT OF CARE ORDERABLES F inal Result [facility] [address] [place] [phone], [facility] [phone] * (ABNORMAL) GLUCOSE - POINT OF CARE (09/17/2024 11:22 AM CDT) Pathologist [facility] Glucose WB/POC 117(H) 70 - 115 mg/dL 09/17/2024 11:27 AM CDT [facility] Specimen Type Cap Fingerstick 2023 11:27 AM CDT [facility] Blood BLOOD SPECIMEN / Unknown 09/17/2024 11:22 AM CDT 09/17/2024 11:27 AM CDT us Davi Sesay DO LAB - POINT OF CARE ORDERABLES F inal Result [facility] [address] [place] [address], [facility] [phone] documented in this encounter Visit Diagnoses Diagnosis [...] mL documented in this encounter Care Teams Drier Operator Relationship Specialty Start Date End Date Yaneth Gage APRN-[facility] [address] [place] [phone] PCP - General 10/01/22 Davi Sesay DO Hematology and Oncology 09/03/19 Saira Tejada MD [address] [place] [address] Hematology and Oncology 09/03/19 Nohemy Andrews APRN-[facility] [address] [place] [address] Family Medicine 09/03/19 Lina Figueroa, RECTIFICATION PRINTER Onboarding Specialist 09/03/19 Luis Delaney MD Hematology and Oncology 09/03/19 Cecy Henriquez, PharmD 09/03/19 Irene Barton, RN Registered Nurse 09/20/19 Massiel Troy, RN Registered Nurse 02/27/22 Nohemy Andrews, CARDIAC REHAB NURSE-[facility] Family Medicine 02/27/22 Dianna Barbosa CARDIAC REHAB NURSE-[facility] [address] [facility] [place] [address] Advance Practice Nurse Family Medicine 02/27/22 Farnaz Arnett, RN 02/27/22 documented as of this encounter
--- OUTSIDE RECORDS SUMMARY | 2025-07-13 17:54 | XMS_ITS | Encounter Summary ---
Author Organization [facility] Address [address] [place] [address] Phone Care Team Providers Care Donor Center Technician Name Role Phone Yaneth Gage APRN, CNP Primary Care Provid er Davi Sesay DO Unavailable [phone] Saira Tejada MD Unavailable [phone] Encounter Details Date Type Department Care Team (Late st Contact Info) Description 05/21/2024 Telephone [facility] [address] [place] [address] Davi Sesay, DO [address] [place] [address] Social History Tobacco Use Types [...] AM CDT Lab [facility] [address] [phone] Lab, Cc [facility] 07/26/2025 10:45 AM CDT Office Visit [facility] [address] [phone] Davi Sesay DO [address] [place] [phone] documented as of this encounter Visit Diagnoses Not on filedocumented in this encounter Additional Health Concerns Assessment Noted Time PHQ-9 Depression Total Score: 18 01/11/ 022 8:49 AM BIAZZI NITRATOR OPERATOR documented as of this encounter Care Teams Donor Center Technician Relationship Specialty Start Date End Date Yaneth Gage APRN, PIERCE [address] [place] [phone] PCP - General Certified Nurse Practitioner 06/30/19 Davi Sesay DO [address] [place] [address] Consulting Physician Oncology 07/05/19 Saira Tejada MD [address] [place] [address] Consulting Physician 09/06/19 documented as of this encounter
--- OUTSIDE RECORDS SUMMARY | 2025-07-13 17:54 | XMS_ITS | Clinical Summary ---
Author Organization [facility] Address [address] [place] [address] Care Team Providers Care Actuarial Consultant Name Role Phone Belen Chacon MD Primary Care Provide r Allergies Active Allergy Reactions Criticality Noted Date Comments Meloxicam Nausea And Vomiting,Nausea only Medium 01/01 Tramadol Itching Medium 01/11/2022 Medications lisinopril-hydr oCHLOROthiazide (Zestoretic) 20-12.5 mg per tablet Active lancets (OneTouch Delica Plus Lancet) 33 gauge [facility] Active blood-glucose meter (OneTouch Verio Flex meter) [facility] Active blood glucose diagnostic (OneTouch Verio test [...] - 04/21/2025 11:59 PM CDT Hospital Encounter [facility] [address] [place] [address] Rn, Julianb Rad Lytic bone lesions on xray; History of multiple myeloma Discharge Disposition: Discharge to home or self care 04/20/2025 12:06 AM CDT - 04/20/2025 6:11 AM CDT Emergency [facility] Emergency Department [facility] [place] [address] Juarez Arthur Jr., MD Hypertensive urgency (Primary [...] on file 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 Gender Identity Not on file Sexual Orientation [...] 157.5 cm (5' 2) 01/21/2025 8:19 AM SKIDDER Body Mass Index 50.3 01/21/2025 8:19 AM SKIDDER Plan of Treatment Health Maintenance Due Date [...] on xray History of multiple myeloma CT CRITICAL CARE ILL/INJURED PATIENT INIT 30-74 MIN [...] POCT ORDERABLES - DEVICE Final Result FRANK [address] [place] [address] * Surgical pathology (04/21/2025 10:26 AM CDT) Tissue (Bone - Biopsy / Curettings) 04/21/2025 10:26 AM CDT Narrative PATHOLOGY [facility] - 04/28/2025 1:26 PM CDT [facility] Department of Pathology [address] [place] [address] Note to Patients: This report may contain [...] : 1965 (Age: 59) Gender: F Address: [address] [place] [address] Hospital #: [id number] Service: UNKNOWN Location: Patient Type: [facility] ANCILLARY Taken: 04/21/2025 Received: 04/21/2025 Accessioned: [...] Jar 0. jjb/04/21/2025 13:46 ROCCO Deshpande, MARYSOL ([facility]) Microscopic slide review and interpretation for this case was performed at [facility] Department of Surgical Pathology, [address] [facility] [place] [id number], [place] [address] CLIA # [id number] The MUM1 Protein test was performed at [facility] Department of Surgical Pathology, [address] [place] [address]. The Ten Broeck test was performed at [facility] Department of Surgical Pathology, [place] [address]. The Lambda test was performed at [facility] Department of Surgical Pathology, [place] [address]. The CD56 test was performed at [facility] Department of Surgical Pathology, [place] [address]. The CD19 IHC test was performed at [facility] Department of Surgical Pathology, [place] [address]. The Ki-67 test was performed at [facility] Department of Surgical Pathology, [place] [address]. us Davi Sesay DO LAB PATHOLOGY ORDERABLES Debi delatorre Result PATHOLOGY [facility] * CT Guided Deep Bone Needle Biopsy [...] gauge core sample was obtained using the Yellow Pages system. The samples were sent to the [...] Ti Quintero M.D. KR T: Report ID: [id number] Reading Location: [id number] Procedure Note Ti Quintero MD - 04/21/2025 [...] gauge core sample was obtained using the Yellow Pages system. Thesamples were sent to the pathology service. Final pathology is pending. A finalpost biopsy image demonstrated no significant complications. CT imagingperformed using dose optimization techniques as appropriate to exam in accordancewith CT guided procedure protocols. The patient tolerated the procedure well. [facility]. IMPRESSION: Successful CT-guided core biopsy of the right posterior iliac bone. THIS IS AN ELECTRONICALLY VERIFIED FINAL REPORT 04/21/2025 11:27 AM - Electronically signed by Ti Quintero M.D. T: Report ID: [id number] Reading Location: [id number] Davi Sesay DO IMG CT PROCEDURES Final Resul t * POCT glucose (04/21/2025 8:46 AM CDT) Glucose, POC 134 70 - 199 mg/dL Blood 04/21/2025 8:46 AM CDT 04/21/2025 8:46 AM CDT Davi Sesay DO LAB POCT ORDERABLES - DEVICE Final Result Performing Organization Address [facility] Co de Phone Number FRANK [address] [place] [address] * aPTT (04/21/2025 8:46 AM CDT) aPTT [...] ORDERABLES Final Re sult Performing Organization Address [facility] Co de Phone Number FRANK [address] [place] [address] * Protime-INR (04/21/2025 8:46 AM CDT) PT [...] ORDERABLES Final Re sult Performing Organization Address [facility] Co de Phone Number FRANK [address] [place] [address] * (ABNORMAL) CBC without differential (04/21/2025 8:46 AM CDT) WBC 9.45 3.80 - 9.90 K/cumm Hgb 15.6(H) 11.9 - 15.5 g/dL [facility] Hct 49.8(H) 35.6 - 45.5 % [facility] Plt 169 150 - 400 K/cumm [facility] MPV 11.1 9.1 - 12.3 fL [facility] RBC 5.75(H) 3.90 - 5.20 M/cumm [facility] MCV 86.6 81.3 - 96.4 fL [facility] MCH 27.1 27.1 - 33.3 pg [facility] MCHC 31.3(L) 32.3 - 35.7 g/dL [facility] RDW CV 14.6 11.1 - 14.9 % [facility] RDW SD 45.5 35.7 - 48.1 fL [facility] NRBC abs 0.00 0.00 - 0.01 K/cumm [facility] Blood Venous blood specimen / Unknown 04/21/2025 8:46 AM CDT 04/21/2025 8:53 AM CDT us Davi Sesay DO LAB BLOOD ORDERABLES Final Re sult Performing Organization Address City/State/[facility] Co de Phone Number FRANK [address] [facility] Department [place] [address] * CT CRITICAL CARE ILL/INJURED PATIENT INIT 30-74 MIN [...] T high-sensitivity 2-hour (04/20/2025 12:18 AM CDT) [facility] Trop T hs 8 <=14 ng/L Comment: Interpretive Data For further hscTnT resources including the diagnostic algorithm and an aid in interpretation, copy and paste this link: https://nrl.testcatalog.org/show/hsTrop Current Interpretive Data last revised 2020. Testing performed by: [address] [address] Trop T hs delta 0 ng/L FRANK Comment:Testing performed by : [address] [address] Trop T hs interp Insignificant FRANK Comment:Testing performed by : [address] [address] Blood 04/20/2025 12:1 8 AM CDT 04/20/2025 12:22 AM CDT us Rao Sotelo MD LAB BLOOD ORDERABLES F inal Result [facility] [address] [facility] Department [place] [address] * eGFR (04/20/2025 12:18 AM CDT) [facility] eGFR >90 >=60 mL/min/1. 73 m2 Comment: [...] was last reviewed 2021. Testing performed by: [address] [address] Blood 04/20/2025 12:1 8 AM CDT 04/20/2025 12:22 AM CDT us Juarez Arthur Jr., MD LAB BLOOD ORDERABLES Fi nal Result FRANK [address] [facility] Department [place] [address] * Comprehensive metabolic panel (04/20/2025 12:18 AM CDT) Sodium 144 135 - 145 mmol/L Comment:Testing performed by : [address] [address] Potassium, pl 3.9 3.3 - 4.9 mmol/L FRANK FAN Comment: Hemolyzed; Potassium value may be falsely elevated by as much as 1.0 mmol/L. Suggest redraw and reanalysis. Testing performed by: [address] [address] Chloride 108 97 - 110 mmol/L FRANK FAN Comment:Testing performed by : [address] [address] CO2 23 22 - 32 mmol/L FRANK Comment:Testing performed by : [address] [address] Anion gap 13 2 - 15 mmol/L FRANK Comment:Testing performed by : [address] [address] BUN 10 6 - 25 mg/dL FRANK Comment:Testing performed by : [address], [place]., [address] Creatinine 0.70 0.60 - 1.10 mg/dL FRANK Comment:Testing performed by : [address] [address] Glucose 138 70 - 199 mg/dL FRANK [...] was last revised 2022. Testing performed by: [address] [address] Calcium 9.5 8.5 - 10.3 mg/dL FRANK Comment:Testing performed by : [address] [address] Bilirubin, total 0.3 0.1 - 1.2 mg/dL FRANK Comment:Testing performed by : [address] [address] Protein, pl 7.3 6.5 - 8.5 g/dL FRANK Comment:Testing performed by : [address] [address] Albumin 4.0 3.5 - 5.0 g/dL FRANK Comment:Testing performed by : [address] [address] Alk phos 86 40 - 130 Units/L FRANK Comment:Testing performed by : [address] [address] ALT 13 7 - 45 Units/L FRANK FAN Comment:Testing performed by : [address] [address] AST 17 10 - 45 Units/L FRANK FAN Comment: Hemolyzed; result may be falsely elevated Testing performed by: [address] [address] Blood 04/20/2025 12:1 8 AM CDT 04/20/2025 12:22 AM CDT us Juarez Arthur Jr., MD LAB BLOOD ORDERABLES Fi nal Result Performing Organization Address [facility] Co de Phone Number CATALINO[address] [employer] [place] [address] * Troponin T high-sensitivity series (baseline, 2hr, 4hr, 6hr) (04/19/2025 10:00 PM CDT) Trop T hs 8 <=14 ng/L Comment: Interpretive Data For further hscTnT resources including the diagnostic algorithm and an aid in interpretation, copy and paste this link: https://nrl.testcatalog.org/show/hsTrop Current Interpretive Data last revised 2020. Testing performed by: [address] [address] Blood 04/19/2025 10:0 0 PM CDT 04/19/2025 10:15 PM CDT us Juarez Arthur Jr., MD LAB BLOOD ORDERABLES Fi nal Result Performing Organization Address [facility] Co de Phone Number CATAL[address] [place] [address] * XR Chest 1 Vw Portable (if [...] Fabien Rudolph M.D. AR: PACO Report ID: [id number] Reading Location: [place] [address] Procedure Note Fabien Rudolph MD - 04/19/2025 [...] Fabien Rudolph M.D. AR: PACO Report ID: [id number] Reading Location: [place] [address] Juarez Arthur Jr., MD IMG XR PROCEDURES Final Result * (ABNORMAL) Differential, auto (04/19/2025 8:52 PM CDT) Neutrophil abs 6.11 1.50 - 6.50 K/cumm Comment:Testing performed by : [address] [address] Imm gran abs 0.05 0.00 - 0.10 K/cumm FRANK Comment:Testing performed by : [address] [address] Lymphocyte abs 2.72 0.80 - 3.30 K/cumm FRANK Comment:Testing performed by : [address] [address] Monocyte abs 0.87(H) 0.20 - 0.80 K/cumm FRANK Comment:Testing performed by : [address] [address] Eosinophil abs 0.16 0.00 - 0.50 K/cumm FRANK Comment:Testing performed by : [address] [address] Basophil abs 0.05 0.00 - 0.10 K/cumm [facility] Comment:Testing performed by : [address] [address] Neutrophil pct 61.4 % [facility] Comment: Interpretive Data Percent cell count reference ranges are not reported, since discordance with absolute values may lead to misinterpretation of CBC data. Current Interpretive Data was last revised on 2018. Testing performed by: [address] [address] Imm gran pct 0.5 % FRANK Comment: Interpretive Data Percent cell count reference ranges are not reported, since discordance with absolute values may lead to misinterpretation of CBC data. Current Interpretive Data was last revised on 2018. Testing performed by: [address] [address] Lymphocyte pct 27.3 % FRANK Comment: Interpretive Data Percent cell count reference ranges are not reported, since discordance with absolute values may lead to misinterpretation of CBC data. Current Interpretive Data was last revised on 2018. Testing performed by: [address] [address] Monocyte pct 8.7 % FRANK Comment: Interpretive Data Percent cell count reference ranges are not reported, since discordance with absolute values may lead to misinterpretation of CBC data. Current Interpretive Data was last revised on 2018. Testing performed by: [address] [address] Eosinophil pct 1.6 % FRANK Comment: Interpretive Data Percent cell count reference ranges are not reported, since discordance with absolute values may lead to misinterpretation of CBC data. Current Interpretive Data was last revised on 2018. Testing performed by: [address] [address] Basophil pct 0.5 % FRANK Comment: Interpretive Data Percent cell count reference ranges are not reported, since discordance with absolute values may lead to misinterpretation of CBC data. Current Interpretive Data was last revised on 2018. Testing performed by: [address] [address] Blood 04/19/2025 8:52 PM CDT 04/19/2025 8:56 PM CDT us Juarez Arthur Jr., MD LAB BLOOD ORDERABLES nal Result FRANK [address] [facility] Department of Laboratories [place], [place] [id number] * (ABNORMAL) CBC with auto differential (04/19/2025 8:52 PM CDT) WBC 9.96(H) 3.80 - 9.90 K/cumm Comment:Testing performed by : [address] [address] Hgb 16.2(H) 11.9 - 15.5 g/dL FRANK Comment:Testing performed by : [address], [address] Hct 48.9(H) 35.6 - 45.5 % FRANK Comment:Testing performed by : [address] [address] Plt 163 150 - 400 K/cumm FRANK Comment:Testing performed by : [address] [address] MPV 10.8 9.1 - 12.3 fL FRANK Comment:Testing performed by : [address] [address] RBC 5.88(H) 3.90 - 5.20 M/cumm FRANK Comment:Testing performed by : [address], [address] MCV 83.2 81.3 - 96.4 fL FRANK Comment:Testing performed by : [address] [address] MCH 27.6 27.1 - 33.3 pg FRANK Comment:Testing performed by : [address] [address] MCHC 33.1 32.3 - 35.7 g/dL FRANK Comment:Testing performed by : [address], [address] RDW CV 14.4 11.1 - 14.9 % FRANK Comment:Testing performed by : [address], [address] RDW SD 42.9 35.7 - 48.1 fL FRANK Comment:Testing performed by : [address] [address] NRBC abs 0.00 0.00 - 0.01 K/cumm FRANK Comment:Testing performed by : [address] [address] Blood Venous blood specimen / Unknown 04/19/2025 8:52 PM CDT 04/19/2025 8:56 PM CDT Juarez Arthur Jr., MD LAB BLOOD ORDERABLES Fi nal Result FRANK [address] [facility] Department [place] [address] * (ABNORMAL) Urinalysis reflex to microscopic and culture Urine (04/19/2025 8:48 PM CDT) Color, ur Yellow Yellow Comment:Testing performed by : [address] [address] Clarity, ur Cloudy(A) Clear FRANK Comment:Testing performed by : [address] [address] Specific gravity, ur 1.025 1.003 - 1.030 FRANK Comment:Testing performed by : [address] [address] pH, urine 8.0 FRANK Comment: Interpretive Data U rine pH is affected by diet, medications, systemic acid-base disturbances, and renal tubular function. pH may affect urinary stone formation. For example, urine pH below 6.0 may help reduce the tendency for calcium phosphate stones and pH greater than 6.0 may reduce the tendency for uric acid stone formation. Source: [facility] [employer] Current Interpretive Data was last revised on 2017 Testing performed by: [address] [address] Protein, ur ql 1+(A) Negative FRANK Comment:Testing performed by : [address] [address] Glucose, ur ql Negative Negative FRANK Comment:Testing performed by : [address] [address] Ketones, ur Negative Negative FRANK FAN Comment:Testing performed by : [address] [address] Bilirubin, ur Negative Negative FRANK Comment:Testing performed by : [address] [address] Blood, ur Negative Negative FRANK Comment:Testing performed by : [address] [address] Urobilinogen, ur <2.0 <2.0 mg/dL FRANK Comment:Testing performed by : [address] [address] Nitrite, ur Positive(A) Negative FRANK Comment:Testing performed by : [address] [address] Leukocyte esterase, ur 2+(A) Negative FRANK Comment:Testing performed by : [address] [address] UA reflex comment Reflex to microscopic UA will be performed. FRANK Comment:Testing performed by : [address], [place]., [address] Urine 04/19/2025 8:48 PM CDT 04/19/2025 8:50 PM CDT Juarez Arthur Jr., MD LAB MICROBIOLOGY - GENE RAL ORDERABLES Final Result Performing Organization Address City/State/[facility] Co de Phone Number FRANK [address] Department [place] [address] * (ABNORMAL) Urinalysis, microscopic only (04/19/2025 8:48 PM CDT) WBC, ur 21-50(A) 0 - 5 /HPF Comment:Testing performed by : [address] [address] RBC, ur 3-5(A) 0 - 2 /HPF FRANK Comment:Testing performed by : [address] [address] Epithelial cells, squamous, ur >50(A) 0 - 5 /HPF FRANK Comment:Testing performed by : [address] [address] Bacteria, ur 3+(A) FRANK Comment:Testing performed by : [address] [address] Mucous, ur Present(A) FRANK Comment:Testing performed by : [address] [address] Hyaline casts, ur 1-5 0 - 10 /LPF FRANK FAN Comment:Testing performed by : [facility], [address] [place] [address]., [address] Culture Reflex Comment Reflex to urine culture will be performed. FRANK Comment:Testing performed by : [facility], [address] [place] [address]., [address] Urine 04/19/2025 8:48 PM CDT 04/19/2025 8:50 PM CDT us Juarez Arthur Jr., MD LAB URINE ORDERABLES Fi nal Result FRANK [facility] [facility] [place] [address] * (ABNORMAL) Urine culture Urine (04/19/2025 8:48 PM CDT) Report Final Report: Greater than or equal to 100,000 colonies/mL of Escherichia coli Plus growth of clinically insignificant bacterial ivan. (.) Comment:Testing performed by : [facility], [address] [facility]., [address] Organism ESCHERICHIA COLI FRANK Organism PLUS GROWTH OF CLINICALLY INSIGNIFICANT IVAN. FRANK Urine 04/19/2025 8:48 PM CDT 04/20/2025 1:21 AM CDT Narrative FRANK - 04/22/2025 6:28 AM CDT Urine culture reflexed based upon urinalysis results. Testing performed by [facility] Microbiology Laboratory ([phone]) Organism Antibiotic Method Susceptibility Escherichia coli Ampicillin [...] GEN ERAL ORDERABLES Final Result FRANK [address] [facility] [place] [address] * ECG 12 lead (04/19/2025 8:34 PM CDT) Ventricular Rate EKG/Min 115 BPM [facility] Atrial Rate 115 BPM [facility] CT-Interval (MSEC) 146 ms [facility] QRS-Interval (MSEC) 82 ms [facility] QT-Interval (MSEC) 324 ms [facility] QTc 448 ms [facility] P Spurgeon 63 degrees [facility] R Spurgeon 28 degrees [facility] T Spurgeon 27 degrees [facility] Diagnosis Sinus tachycardia Possible Left atrial enlargement Borderline ECG When compared with ECG of 12-SEP-2023 20:25, No significant change was found Confirmed by MICHAEL DAMON M.D. ([id number]) on 04/20/2025 8:12:44 PM [facility] 04/19/2025 8:34 PM CDT 04/20/2025 8:12 PM CDT us Juarez Arthur Jr., MD ECG ORDERABLES Final R esult Performing Organization Address City/[facility] Co de Phone Number [facility] from Last 3 Months Insurance [facility] Advance Directives For more information, please contact: [phone] * Full Code (Latest Code Status on File) Date Activated Date Inactivated Comments 04/21/2025 10:43 AM 04/22/2025 4:56 AM Care Teams Actuarial Consultant Relationship Specialty Start Date End Date Belen Chacon MD [address] [place] [id number] PCP - General 02/19/21
--- OUTSIDE RECORDS SUMMARY | 2025-07-13 17:54 | XMS_ITS | Encounter Summary ---
Author Organization [facility] Address [address] [place] [address] Phone Care Team Providers Care Hand Marker Name Role Phone Yaneth Gage APRN, CNP Primary Care Provid er Davi Sesay DO Unavailable [phone] Saira Tejada MD Unavailable [phone] Reason for Visit * Reason Comments Medication Refill Encounter Details Date Type Department Care Team (Late st Contact Info) Description 12/25/2023 Refill [facility] [address] [place] [address] Rachell Brooks APRN, CNP [address] [place] [address] Medication Refill Social History Tobacco Use [...] AM CDT Lab [facility] [address] [address] Lab, [facility] 07/26/2025 10:45 AM CDT Office Visit [facility] [address] [address] Davi Sesay DO [address] [place] [address] documented as of this encounter Visit Diagnoses Diagnosis Constipation, unspecified constipation type documented in this encounter Additional Health Concerns Assessment Noted Time PHQ-9 Depression Total Score: 18 022 8:49 AM PIE FILLER documented as of this encounter Care Teams Hand Marker Relationship Specialty Start Date End Date Yaneth Gage APRN, STATIONS SUPERINTENDENT [address] [place] [address] PCP - General Certified Nurse Practitioner 06/30/19 Davi Sesay DO [address] [place] [address] Consulting Physician Oncology 07/05/19 [place] [address] [place] [address] Consulting Physician 09/06/19 documented as of this encounter
--- OUTSIDE RECORDS SUMMARY | 2025-07-13 17:54 | XMS_ITS ---
Author Organization [facility] Address [address] [facility] [place] [address] Care Team Providers Care Nailing Machine Operator Name Role Phone Davi Sesay DO Unavailable Saira Tejada MD Unavailable [phone] Juliana, Nohemy Singletary SQL DEVELOPER-HEAD CUSTODIAN Unavailable [phone] Lina Figueroa LCSW Unavailable Unavailab Luis Rodarte MD Unavailable Cecy Henriquez PharmD Unavailable Unavaila Irene Baptiste RN Unavailable Unavaila Massiel Adames RN Unavailable Unavailable Nohemy Andrews APRN-HEAD CUSTODIAN Unavailable [phone] Dianna Barbosa APRN-HEAD CUSTODIAN Unavailable [phone] Farnaz Arnett RN Unavailable Unavailable Yaneth Gage SQL DEVELOPER-[facility] Primary Care Provide r Active Problems Problem Noted Date Diagnosed Date Hidradenitis 02/05/2021 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 Nausea and vomiting 01/02/2020 CHF (congestive heart failure) 10/29/2019 Type 2 diabetes mellitus 09/20/2019 Hypertension 09/20/2019 Multiple myeloma 09/03/2019 Lytic lesion of bone on x-ray 07/12/2019 Current Treatment and Therapy Plans BMT CONDITIONING [id number] SCHEMA A - MELPHALAN 100 MG/M2* Plan Start Date:01/03/2020 Plan Provider:Donna Meyers APRN-SENIOR PROJECT MANAGER ENGINEERING Linked Problems Multiple myeloma, remission status unspecified (HCC) Treatment Medications Current Day (Day 1 3, Post-Transplant - Planned for 01/19/2020) Next Day (Day 14, Post-Transplant - Planned for 01/20/2020) melphalan (Alkeran) infusion No medications scheduled. No medications scheduled. BMT HPC SUPPORTIVE CARE?[facility] USE ONLY* Plan Start Date:10/18/2019 Plan Provider:Nohemy Andrews APRN-HEAD CUSTODIAN Linked Problems Multiple myeloma, remission status unspecified [...]
--- OUTSIDE RECORDS SUMMARY | 2025-07-13 17:54 | XMS_ITS | Encounter Summary ---
Author Organization [facility] Address [address] [place] [address] Phone Care Team Providers Care Math Interventionist Name Role Phone Yaneth Gage APRN, CNP Primary Care Provid er Davi Sesay DO Unavailable [phone] Saira Tejada MD Unavailable [phone] Reason for Visit * Reason Comments Medication Refill Encounter Details Date Type Department Care Team (Late st Contact Info) Description 09/22/2020 Refill [facility] [place] [address] [place] [address] Davi Sesay, DO [address] [place] [address] Medication Refill Social History Tobacco [...] 10:35 AM CDT Lab [facility] [address] [phone] Lab, [facility] 07/26/2025 10:45 AM CDT Office Visit [facility] [address] [phone] Davi Sesay DO [address] [place] [phone] documented as of this encounter Visit Diagnoses Diagnosis Multiple myeloma in relapse (HCC) Multiple myeloma, in relapse documented in this encounter Additional Health Concerns Assessment Noted Time PHQ-9 Depression Total Score: 0 07/28/20 10:29 AM CDT documented as of this encounter Care Teams Math Interventionist Relationship Specialty Start Date End Date Yaneth Gage, DAMARIS, SUPPORT ANALYST [address] [place] [address] PCP - General Certified Nurse Practitioner 06/30/19 Davi Sesay DO [address] [place] [address] Consulting Physician Oncology 07/05/19 Saira Tejada MD [address] [place] [address] Consulting Physician 09/06/19 documented as of this encounter
--- OUTSIDE RECORDS SUMMARY | 2025-07-13 17:54 | XMS_ITS | Encounter Summary ---
Author Organization [facility] Address [address] [place] [address] Phone Care Team Providers Care Solar Installer Technician Name Role Phone Yaneth Gage APRN, CNP Primary Care Provid er Davi Sesay DO Unavailable [phone] Saira Tejada MD Unavailable [phone] Encounter Details Date Type Department Care Team (Late st Contact Info) Description 12/21/2021 Telephone [facility] [place] [address] [place] [address] Davi Sesay, DO [address] [place] [address] Social History Tobacco Use Types [...] ns appt, vm left, letter sent out. AND NECK SURGEON documented in this encounter Plan of Treatment Upcoming Encounters Date Type Department Care Team (Late st Contact Info) Description 07/26/2025 10:35 AM CDT Lab [facility] [address] [phone] Lab, [facility] 07/26/2025 10:45 AM CDT Office Visit [facility] [address] [phone] Davi Sesay DO [address] [place] [phone] documented as of this encounter Visit Diagnoses Not on filedocumented in this encounter Additional Health Concerns Assessment Noted Time PHQ-9 Depression Total Score: 1 09/18/20 21 11:20 AM CDT documented as of this encounter Care Teams Solar Installer Technician Relationship Specialty Start Date End Date Yaneth Gage, DAMARIS, LOCKSTITCH TOPSTITCHER [address] [place] [address] PCP - General Certified Nurse Practitioner 06/30/19 Davi Sesay DO [address] [place] [address] Consulting Physician Oncology 07/05/19 Saira Tejada MD [address] [place] [address] Consulting Physician 09/06/19 documented as of this encounter
--- OUTSIDE RECORDS SUMMARY | 2025-07-13 17:54 | XMS_ITS | Encounter Summary ---
Author Organization [facility] Address [address] [place] [address] Phone Care Team Providers Care Street Light Lamp Cleaner Name Role Phone Yaneth Gage APRN, CNP Primary Care Provid er Davi Sesay DO Unavailable [phone] Saira Tejada MD Unavailable [phone] Reason for Visit * Reason Comments Medication Refill Encounter Details Date Type Department Care Team (Late st Contact Info) Description 06/11/2021 Refill [facility] [place] [address] [place] [address] Davi Sesay, DO [address] [place] [address] Medication Refill Social History Tobacco [...] 10:35 AM CDT Lab [facility] [address] [address] Lab, [facility] 07/26/2025 10:45 AM CDT Office Visit [facility] [address] [phone] Davi Sesay DO [address] [place] [address] documented as of this encounter Visit Diagnoses Not on filedocumented in this encounter Additional Health Concerns Assessment Noted Time PHQ-9 Depression Total Score: 1 05/29/20 21 11:00 AM CDT documented as of this encounter Care Teams Street Light Lamp Cleaner Relationship Specialty Start Date End Date Yaneth Gage APRN, PIERCE [address] [place] [address] PCP - General Certified Nurse Practitioner 06/30/19 Davi Sesay DO [address] [place] [address] Consulting Physician Oncology 07/05/19 Saira Tejada MD [address] [place] [address] Consulting Physician 09/06/19 documented as of this encounter
--- OUTSIDE RECORDS SUMMARY | 2025-07-13 17:54 | XMS_ITS | Encounter Summary ---
Author Organization [facility] Address [address] [address] Phone Care Team Providers Care Call Out Clerk Name Role Phone Yaneth Gage APRN, CNP Primary Care Provid er Davi Sesay DO Unavailable [phone] Saira Tejada MD Unavailable [phone] Encounter Details Date Type Department Care Team (Late st Contact Info) Description 03/16/2025 Telephone [facility] [place] [address] [place] [address] Davi Sesay, DO [address] [place] [address] Social History Tobacco Use Types [...] CDT Lab [facility] [address] [phone] Lab, [facility] 07/26/2025 10:45 AM CDT Office Visit [facility] [address] [phone] Davi Sesay DO [address] [place] [phone] documented as of this encounter Visit Diagnoses Not on filedocumented in this encounter Additional Health Concerns Assessment Noted Time PHQ-9 Depression Total Score: 19 024 2:33 PM CDT documented as of this encounter Care Teams Call Out Clerk Relationship Specialty Start Date End Date Yaneth Gage APRN, PIERCE [address] [place] [address] PCP - General Certified Nurse Practitioner 06/30/19 Davi Sesay DO [address] [place] [address] Consulting Physician Oncology 07/05/19 Saira Tejada MD [address] [place] [address] Consulting Physician 09/06/19 documented as of this encounter
--- OUTSIDE RECORDS SUMMARY | 2025-07-13 17:54 | XMS_ITS | Encounter Summary ---
Author Organization [facility] Address [address] [facility] [place] [address] Care Team Providers Care External Grinder Name Role Phone Davi Sesay DO Unavailable Saira Tejada MD Unavailable [phone] Juliana, Nohemy Singletary COIL TIER-LUMBER TAILER Unavailable [phone] Lina FigueroaW Unavailable Unavailab Luis Rodarte MD Unavailable [phone] Cecy Henriquez PharmD Unavailable Unavaila ble Irene Barton RN Unavailable Unavaila Massiel Adames RN Unavailable Unavailable Nohemy Andrews COIL TIER-LUMBER TAILER Unavailable [phone] Dianna Barbosa COIL TIER-LUMBER TAILER Unavailable [phone] Farnaz Arnett RN Unavailable Unavailable Yaneth [facility] Primary Care Provide r Encounter Details Date Type Department Care Team (Late st Contact Info) Description 11/18/2022 Telephone [facility] [address] [facility] [place] [address] Tea Carrillo MD No Information [...] on file Legal Sex Female 5:58 PM SHIPPING/RECEIVING CLERK Gender Identity Not on file Sexual Orientation [...] - 11/18/2022 1:47 PM CST Juany with [facility] calling to request a Refill: Doxycycline/100mg tab. Pharmacy will fax refill request to [phone], please call [phone] or Fax script to Pharmacy at [phone]. PING/RECEIVING CLERK documented in this encounter Plan of Treatment Not on file documented as of this encounter Visit Diagnoses Not on filedocumented in this encounter Care Teams External Grinder Relationship Specialty Start Date End Date Yaneth Gage APRN-LUMBER TAILER [address] [place] [phone] PCP - General 10/01/22 Davi Sesay DO Hematology and Oncology 09/03/19 Saira Tejada MD [address] [place] [address] Hematology and Oncology 09/03/19 Nohemy Andrews APRN-[facility] [address] [place] [address] Family Medicine 09/03/19 Lina Figueroa, CAN CRIMPER Credit Or Loans Officer 09/03/19 Luis Delaney MD Hematology and Oncology 09/03/19 Cecy Henriquez, PharmD 09/03/19 Irene Barton, JR Registered Nurse 09/20/19 Massiel Troy RN Registered Nurse 02/27/22 Nohemy Andrews APRN-LUMBER TAILER Family Medicine 02/27/22 Dianna Barbosa APRN-LUMBER TAILER [facility] [place] [address] Advance Practice Nurse Family Medicine 02/27/22 Farnaz Arnett RN 02/27/22 documented as of this encounter
--- OUTSIDE RECORDS SUMMARY | 2025-07-13 17:54 | XMS_ITS | Encounter Summary ---
Author Organization [facility] Address [address] [facility] [place] [address] Care Team Providers Care Hose Seamer Name Role Phone Davi Sesay DO Unavailable Saira Tejada MD Unavailable [phone] Nohemy Andrews FISH PROCESSING SUPERVISOR-STOCKKEEPER Unavailable [phone] Kamala Hood RN Unavailable Unavailable Lina Figueroa LCSW Unavailable Unavailab Thomas Stoddard MD Unavailable [phone] Luis Delaney MD Unavailable [phone] Christine Aguilera MD Unavailable [phone] Cecy HenriquezD Unavailable Unavaila Keara Niño Unavailable Unavailable Debby Rebolledo RN Unavailable UnavailJaye Kruger RN Unavailable Unavailable Irene Barton RN Unavailable Unavaila Donna Brenner FISH PROCESSING SUPERVISOR-AUTOMOTIVE VEHICLE INSPECTOR Unavailable [phone] Gilmar Prajapati PA-C Unavailable Unavail able Yaneth Gage FISH PROCESSING SUPERVISOR-STOCKKEEPER Primary Care Provide r Belen Chacon MD Primary Care Provider [phone] Yaneth Gage FISH PROCESSING SUPERVISOR-STOCKKEEPER Primary Care Provide r Massiel Troy RN Unavailable Unavailable Nohemy Andrews FISH PROCESSING SUPERVISOR-STOCKKEEPER Unavailable [phone] Dianna Barbosa APRNPIERCE Unavailable [phone] Farnaz Arnett RN Unavailable Unavailable Belen Chacon MD Primary Care Provider [phone] Yaneth Gage Primary Care Provide r Encounter Details Date Type Department Care Team (Late st Contact Info) Description 08/13/2019 Telephone [facility] [address] [place] [address] Zohreh Cary RN Social History Tobacco Use Types Packs/Day Years Used Date Smoking Tobacco: Never Assessed Comments Unknown Sex and Gender Information Value Date Recorded Sex Assigned at Not on file Legal Sex Female 5:58 PM TRANSPORT ASSISTANT Gender Identity Not on file Sexual Orientation Not on file documented as of this encounter Progress Notes * Zohreh Cary RN - 08/13/2019 12:32 PM CDT received a request for BMB from Dr. Davi Sesay office since an attempt to do a BMB failed 2/2 body habitus the office at [phone] Was notified that due to the Limited resources the best option is to refer the pt. To [facility] and please include the specific Pathology request instead of requesting Fish Myeloma , flow cytometry and cytogenetic per fax order. . documented in this encounter Plan of Treatment Not on file documented as of this encounter Visit Diagnoses Not on filedocumented in this encounter Care Teams Hose Seamer Relationship Specialty Start Date End Date Yaneth Gage APRN-CNP [address] [place] [address] PCP - General 11/03/19 10/03/21 Belen Chacon MD [address] [place] [address] PCP - General Family Medicine 10/04/21 10/04/21 Yaneth Gage FISH PROCESSING SUPERVISOR-[facility] [address] [place] [address] PCP - General 10/05/21 08/22/22 Belen Chacon MD [address] [place] [address] PCP - General Family Medicine 08/23/22 09/30/22 Yaneth Gage FISH PROCESSING SUPERVISOR-STOCKKEEPER [address] [facility] [place] [phone] PCP - General 10/01/22 Davi Sesay DO Hematology and Oncology 09/03/19 Saira Tejada MD [address] [place] [address] Hematology and Oncology 09/03/19 Nohemy Andrews APRN-[facility] [address] [place] [address] Family Medicine 09/03/19 Kamala Hood, JR Registered Nurse 09/03/19 01/01/22 Lina Figueroa, PIN SETTER Audit Clerk 09/03/19 Thomas Wiggins MD Hematology and Oncology 09/03/19 01/01/22 Luis Delaney MD Hematology and Oncology 09/03/19 Christine Aguilera MD [address] [place], [place] [id number] Hematology and Oncology 09/03/19 01/26/20 Cecy Henriquez, PharmD 09/03/19 Keara Baker 09/03/19 04/30/21 Debby Rebolledo, RN Registered Nurse 09/20/19 02/26/22 Jaye Johnson, RN Registered Nurse 09/20/19 02/26/22 Irene Barton, RN Registered Nurse 09/20/19 Donna Meyers, FISH PROCESSING SUPERVISOR-AUTOMOTIVE VEHICLE INSPECTOR [address] [place] [address] Oncology 09/20/19 02/26/22 Gilmar Prajapati PA-C [address] [place] [address] Physician Pyrotechnist 09/20/19 0 Massiel Troy RN Registered Nurse 02/27/22 Nohemy Andrews, FISH PROCESSING SUPERVISOR-STOCKKEEPER Family Medicine 02/27/22 Dianna Barbosa FISH PROCESSING SUPERVISOR-STOCKKEEPER [address] [facility] [place] [address] Advance Practice Nurse Family Medicine 02/27/22 Farnaz Arnett, RN 02/27/22 documented as of this encounter
--- OUTSIDE RECORDS SUMMARY | 2025-07-13 17:54 | XMS_ITS | Encounter Summary ---
Author Organization [facility] Address [address] [place] [address] Phone Care Team Providers Care Intelligence Consultant Name Role Phone Yaneth Gage APRN, CNP Primary Care Provid er Davi Sesay DO Unavailable [phone] Saira Tejada MD Unavailable [phone] Encounter Details Date Type Department Care Team (Late st Contact Info) Description 05/10/2022 Telephone [facility] [place] [address] [place] [address] Davi Sesay, DO [address] [place] [address] Social History Tobacco Use Types [...] AM CDT Lab [facility] [address] [address] Lab, [facility] 07/26/2025 10:45 AM CDT Office Visit [facility] [address] [phone] Davi Sesay DO [address] [place] [phone] documented as of this encounter Visit Diagnoses Not on filedocumented in this encounter Additional Health Concerns Assessment Noted Time PHQ-9 Depression Total Score: 18 022 8:49 AM ARTIFACTS CONSERVATOR documented as of this encounter Care Teams Intelligence Consultant Relationship Specialty Start Date End Date Yaneth Gage APRN, PIERCE [address] [place] [address] PCP - General Certified Nurse Practitioner 06/30/19 Davi Sesay DO [address] [place] [address] Consulting Physician Oncology 07/05/19 Saira Tejada MD [address] [place] [address] Consulting Physician 09/06/19 documented as of this encounter
--- OUTSIDE RECORDS SUMMARY | 2025-07-13 17:54 | XMS_ITS | Encounter Summary ---
Author Organization [facility] Address [address] [place] [address] Phone Care Team Providers Care Packer Inspector Name Role Phone Yaneth Gage APRN, CNP Primary Care Provid er Davi Sesay DO Unavailable [phone] Saira Tejada MD Unavailable [phone] Encounter Details Date Type Department Care Team (Late st Contact Info) Description 12/06/2022 Telephone [facility] [place] [address] [place] [address] Davi Sesay, DO [address] [place] [address] Social History Tobacco Use Types [...] MAIL SET UP. SENDING MISSED APPT LETTER LLIC YARN SLITTING MACHINE OPERATOR documented in this encounter Plan of Treatment Upcoming Encounters Date Type Department Care Team (Late st Contact Info) Description 07/26/2025 10:35 AM CDT Lab [facility] [address] [address] Lab, [facility] 07/26/2025 10:45 AM CDT Office Visit [facility] [address] [phone] Davi Sesay DO [address] [place] [phone] documented as of this encounter Visit Diagnoses Not on filedocumented in this encounter Additional Health Concerns Assessment Noted Time PHQ-9 Depression Total Score: 18 022 8:49 AM METALLIC YARN SLITTING MACHINE OPERATOR documented as of this encounter Care Teams Packer Inspector Relationship Specialty Start Date End Date Yaneth Gage APRN, PIERCE [address] [place] [address] PCP - General Certified Nurse Practitioner 06/30/19 Davi Sesay DO [address] [place] [address] Consulting Physician Oncology 07/05/19 Saira Tejada MD [address] [place] [address] Consulting Physician 09/06/19 documented as of this encounter
--- OUTSIDE RECORDS SUMMARY | 2025-07-13 17:54 | XMS_ITS | Encounter Summary ---
Author Organization [facility] Address [address] [place] [address] Phone Care Team Providers Care Instantizer Operator Name Role Phone Yaneth Gage APRN, CNP Primary Care Provid er Davi Sesay DO Unavailable [phone] Saira Tejada MD Unavailable [phone] Encounter Details Date Type Department Care Team (Late st Contact Info) Description 08/03/2024 Telephone [facility] [place] [address] [place] [address] Davi Sesay, DO [address] [place] [address] Social History Tobacco Use Types [...] 10:35 AM CDT Lab [facility] [address] [phone] Lab, [facility] 07/26/2025 10:45 AM CDT Office Visit [facility] [address] [phone] Davi Sesay DO [address] [place] [phone] documented as of this encounter Visit Diagnoses Not on filedocumented in this encounter Additional Health Concerns Assessment Noted Time PHQ-9 Depression Total Score: 18 01/11/ 022 8:49 AM HAUL DRIVER documented as of this encounter Care Teams Instantizer Operator Relationship Specialty Start Date End Date Yaneth Gage APRN, PIERCE [address] [place] [address] PCP - General Certified Nurse Practitioner 06/30/19 Davi Sesay DO [address] [place] [address] Consulting Physician Oncology 07/05/19 Saira Tejada MD [address] [place] [address] Consulting Physician 09/06/19 documented as of this encounter
--- OUTSIDE RECORDS SUMMARY | 2025-07-13 17:54 | XMS_ITS | Encounter Summary ---
Author Organization [facility] Address [address] [place] [address] Phone Care Team Providers Care Animal Caretaker Supervisor Name Role Phone Yaneth Gage APRN, CNP Primary Care Provid er Davi Sesay DO Unavailable [phone] Saira Tejada MD Unavailable [phone] Reason for Visit * Reason Comments Medication Refill Encounter Details Date Type Department Care Team (Late st Contact Info) Description 09/21/2020 Refill [facility] [place] [address] [place] [address] Davi Sesay, DO [address] [place] [address] Medication Refill Social History Tobacco [...] 10:35 AM CDT Lab [facility] [address] [phone] Lab, [facility] 07/26/2025 10:45 AM CDT Office Visit [facility] [address] [phone] Davi Sesay DO [address] [place] [phone] documented as of this encounter Visit Diagnoses Diagnosis Multiple myeloma in relapse (HCC) Multiple myeloma, in relapse documented in this encounter Additional Health Concerns Assessment Noted Time PHQ-9 Depression Total Score: 0 07/28/20 10:29 AM CDT documented as of this encounter Care Teams Animal Caretaker Supervisor Relationship Specialty Start Date End Date Yaneth Gage, DAMARIS, [facility] TECHNICIAN [address] [place] [address] PCP - General Certified Nurse Practitioner 06/30/19 Davi Sesay DO [address] [place] [address] Consulting Physician Oncology 07/05/19 Saira Tejada MD [address] [place] [address] Consulting Physician 09/06/19 documented as of this encounter
--- OUTSIDE RECORDS SUMMARY | 2025-07-13 17:54 | XMS_ITS | Encounter Summary ---
Author Organization [facility] Address [address] [place] [address] Phone Care Team Providers Care Polytechnic Teacher Name Role Phone Yaneth Gage APRN, CNP Primary Care Provid er Davi Sesay DO Unavailable [phone] Saira Tejada MD Unavailable [phone] Encounter Details Date Type Department Care Team (Late st Contact Info) Description 09/27/2021 Telephone [facility] [place] [address] [place] [address] Davi Sesay, DO [address] [place] [address] Social History Tobacco Use Types [...] CDT PATIENT IS SEEING PAIN MANAGEMENT AT [facility] TODAY AT 10:30AM. documented in this encounter Plan of Treatment Upcoming Encounters Date Type Department Care Team (Late st Contact Info) Description 07/26/2025 10:35 AM CDT Lab [facility] [address] [phone] Lab, [facility] 07/26/2025 10:45 AM CDT Office Visit [facility] [address] [phone] Davi Sesay DO [address] [place] [phone] documented as of this encounter Visit Diagnoses Not on filedocumented in this encounter Additional Health Concerns Assessment Noted Time PHQ-9 Depression Total Score: 1 09/18/20 21 11:20 AM CDT documented as of this encounter Care Teams Polytechnic Teacher Relationship Specialty Start Date End Date Yaneth Gage APRN, RETAIL ASSISTANT MANAGER [address] [place] [address] PCP - General Certified Nurse Practitioner 06/30/19 Davi Sesay DO [address] [place] [address] Consulting Physician Oncology 07/05/19 Saira Tejada MD [address] [place] [address] Consulting Physician 09/06/19 documented as of this encounter
--- OUTSIDE RECORDS SUMMARY | 2025-07-13 17:54 | XMS_ITS | Encounter Summary ---
Author Organization [facility] Address [address] [place] [address] Phone Care Team Providers Care Resource Manager Forester Name Role Phone Yaneth Gage APRN, CNP Primary Care Provid er Davi Sesay DO Unavailable [phone] Saira Tejada MD Unavailable [phone] Encounter Details Date Type Department Care Team (Late st Contact Info) Description 06/11/2022 Telephone [facility] [place] [address] [place] [address] Davi Sesay, DO [address] [place] [address] Social History Tobacco Use Types [...] AM CDT Lab [facility] [address] [phone] Lab, [facility] [place] 07/26/2025 10:45 AM CDT Office Visit [facility] [address] [phone] Davi Sesay DO [address] [place] [phone] documented as of this encounter Visit Diagnoses Not on filedocumented in this encounter Additional Health Concerns Assessment Noted Time PHQ-9 Depression Total Score: 18 022 8:49 AM LOFT RIGGER documented as of this encounter Care Teams Resource Manager Forester Relationship Specialty Start Date End Date Yaneth Gage APRN, CNP [address] [place] [address] PCP - General Certified Nurse Practitioner 06/30/19 Davi Sesay DO [address] [place] [address] Consulting Physician Oncology 07/05/19 Saira Tejada MD [address] [place] [address] Consulting Physician 09/06/19 documented as of this encounter
--- OUTSIDE RECORDS SUMMARY | 2025-07-13 17:54 | XMS_ITS | Encounter Summary ---
Author Organization [facility] Address [address] [place] [address] Phone Care Team Providers Care Public School Teacher Name Role Phone Yaneth Gage APRN, CNP Primary Care Provid er Davi Sesay DO Unavailable [phone] Saira Tejada MD Unavailable [phone] Encounter Details Date Type Department Care Team (Late st Contact Info) Description 09/08/2020 Telephone [facility] [place] [address] [place] [address] Davi Sesay, DO [address] [place] [address] Social History Tobacco Use Types [...] AM CDT Lab [facility] [address] [phone] Lab, [facility] 07/26/2025 10:45 AM CDT Office Visit [facility] [address] [phone] Davi Sesay DO [address] [place] [phone] documented as of this encounter Visit Diagnoses Not on filedocumented in this encounter Additional Health Concerns Assessment Noted Time PHQ-9 Depression Total Score: 0 07/28/20 20 10:29 AM CDT documented as of this encounter Care Teams Public School Teacher Relationship Specialty Start Date End Date Yaneth Gage APRN, PIERCE [address] [place] [address] PCP - General Certified Nurse Practitioner 06/30/19 Davi Sesay DO [address] [place] [address] Consulting Physician Oncology 07/05/19 [place] [address] [place] [address] Consulting Physician 09/06/19 documented as of this encounter
--- OUTSIDE RECORDS SUMMARY | 2025-07-13 17:54 | XMS_ITS ---
Author Organization [facility] Address [address], [address] [place] [address] Phone Care Team Providers Care Police Aide Name Role Phone Yaneth Gage APRN, CNP Primary Care Provid er Davi Sesay DO Unavailable [phone] Saira Tejada MD Unavailable [phone] Active Problems Problem Noted Date Diagnosed [...] Plan Provider Cycles SUPPORT - ZOMETA - [facility] 9 01/25/2021 No medications scheduled. Plan Clean Up Davi Sesay, DO Treatment not started ONCOLOGY TREATMENT Plan Name Start Date Discontinue Date Treatment Medications Discontinue Reason Plan Provider Cycles MULTIPLE MYELOMA - VELCADE + DEXAMETHASONE + REVLIMID - [facility] 019 05/19/2020 bortezomib (VELCADE) injectionlenalidomide 25 mg capsule (REVLIMID) Therapy Complete Davi Sesay DO 3 (4 of 9 cycles) started ORAL CHEMO TREATMENT Plan Name Start Date Discontinue Date Treatment Medications Discontinue Reason Plan Provider Cycles MYELOMA - REVLIMID MAINTENANCE - [facility] 06/02/2020 03/05/2022 lenalidomide (REVLIMID) Plan Clean Up Davi Sesay, DO Treatment not started
--- OUTSIDE RECORDS SUMMARY | 2025-07-13 17:54 | XMS_ITS | Encounter Summary ---
Author Organization [facility] Address [address] [place] [address] Phone Care Team Providers Care Back Padder Name Role Phone Yaneth Gage APRN, CNP Primary Care Provid er Davi Sesay DO Unavailable [phone] Saira Tejada MD Unavailable [phone] Encounter Details Date Type Department Care Team (Late st Contact Info) Description 05/06/2022 Telephone [facility] [place] [address] [place] [address] Davi Sesay, DO [address] [place] [address] Social History Tobacco Use Types [...] 10:35 AM CDT Lab [facility] [address] [address] Lab, [facility] 07/26/2025 10:45 AM CDT Office Visit [facility] [address] [phone] Davi Sesay DO [address] [place] [phone] documented as of this encounter Visit Diagnoses Not on filedocumented in this encounter Additional Health Concerns Assessment Noted Time PHQ-9 Depression Total Score: 18 022 8:49 AM ASSOCIATE DIRECTOR CAREER SERVICES documented as of this encounter Care Teams Back Padder Relationship Specialty Start Date End Date Yaneth Gage APRN, UX UI DESIGNER [address] [place] [address] PCP - General Certified Nurse Practitioner 06/30/19 Davi Sesay DO [address] [place] [address] Consulting Physician Oncology 07/05/19 Saira Tejada MD [address] [place] [address] Consulting Physician 09/06/19 documented as of this encounter
--- OUTSIDE RECORDS SUMMARY | 2025-07-13 17:54 | XMS_ITS | Encounter Summary ---
Author Organization [facility] Address [address] [place] [place] [address] Care Team Providers Care Websphere Commerce Consultant Name Role Phone Davi Sesay DO Unavailable Saira Tejada MD Unavailable [phone] Nohemy Andrews MARINE CONSULTANT-KITCHEN LEAD Unavailable [phone] Kamala Hood RN Unavailable Unavailable Lina Figueroa LCSW Unavailable Unavailab Thomas Stoddard MD Unavailable [phone] Luis Delaney MD Unavailable Christine Aguilera MD Unavailable [phone] Cecy HenriquezD Unavailable Unavaila Keara Niño Unavailable Unavailable Debby Rebolledo RN Unavailable UnavailJaye Kruger RN Unavailable Unavailable Irene Barton RN Unavailable Unavaila Donna Brenner MARINE CONSULTANT-SEWING TEACHER Unavailable [phone] Gilmar Prajapati PA-C Unavailable Unavail able Yaneth Gage MARINE CONSULTANT-KITCHEN LEAD Primary Care Provide r Belen Chacon MD Primary Care Provider [phone] Yaneth Gage MARINE CONSULTANT-KITCHEN LEAD Primary Care Provide r Massiel Troy RN Unavailable Unavailable Nohemy Andrews MARINE CONSULTANT-KITCHEN LEAD Unavailable [phone] [facility] Unavailable [phone] Farnaz Arnett RN Unavailable Unavailable Belen Chacon MD Primary Care Provider [phone] [facility] Primary Care Provide r Encounter Details Date Type Department Care Team (Late st Contact Info) Description 08/26/2019 Lab Requisition [facility] [address] [place] [address] Gary Davis MD [address] [place] [address] Social History Tobacco Use Types Packs/Day Years Used Date Smoking Tobacco: Never Assessed Comments Unknown Sex and Gender Information Value Date Recorded Sex Assigned at Not on file 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 [place], [place] [address] [phone] documented in this encounter Visit Diagnoses Not on filedocumented in this encounter Care Teams Websphere Commerce Consultant Relationship Specialty Start Date End Date Yaneth Gage APRN-CNP [address] [place] [phone] PCP - General 11/03/19 10/03/21 Belen Chacon MD [address] [place] [phone] PCP - General Family Medicine 10/04/21 10/04/21 Yaneth Gage APRN-CNP [address] [place] [phone] PCP - General 10/05/21 08/22/22 Belen Chacon MD [address] [place] [phone] PCP - General Family Medicine 08/23/22 09/30/22 Yaneth Gage APRN-CNP [address] [place] [phone] PCP - General 10/01/22 Davi Sesay DO Hematology and Oncology 09/03/19 Saira Tejada MD [address] [place] [address] Hematology and Oncology 09/03/19 Nohemy Andrews APRN-CNP [address] [place] [address] Family Medicine 09/03/19 Kamala Hood, JR Registered Nurse 09/03/19 01/01/22 Lina Figueroa [facility] Gambling Broker 09/03/19 Thomas Wiggins MD Hematology and Oncology 09/03/19 01/01/22 Luis Delaney MD Hematology and Oncology 09/03/19 Christine Aguilera MD [address] [place] [address] Hematology and Oncology 09/03/19 01/26/20 Cecy Henriquez, PharmD 09/03/19 Keara Baker 09/03/19 04/30/21 Debby Rebolledo, RN Registered Nurse 09/20/19 02/26/22 Jaye Johnson, RN Registered Nurse 09/20/19 02/26/22 Irene Barton, RN Registered Nurse 09/20/19 Donna Meyers, MARINE CONSULTANT-SEWING TEACHER [address] [place] [address] Oncology 09/20/19 02/26/22 Gilmar Prajapati PA-C [address] [facility] 2nd [place] [address] Physician Dried Fruit Washer 09/20/19 0 Massiel Troy, RN Registered Nurse 02/27/22 Nohemy Andrews MARINE CONSULTANT-KITCHEN LEAD Family Medicine 02/27/22 Dianna Barbosa MARINE CONSULTANT-KITCHEN LEAD [facility] [facility] [place] [address] Advance Practice Nurse Family Medicine 02/27/22 Farnaz Arnett, RN 02/27/22 documented as of this encounter
--- OUTSIDE RECORDS SUMMARY | 2025-07-13 17:54 | XMS_ITS | Encounter Summary ---
Author Organization [facility] Address [address] [place] [address] Phone Care Team Providers Care Joint Machine Operator Name Role Phone Yaneth Gage APRN, CNP Primary Care Provid er Davi Sesay DO Unavailable [phone] Saira Tejada MD Unavailable [phone] Reason for Visit * Reason Onset Date Comments appeal decision 07/13/2025 Encounter Details Date Type Department Care Team (Late st Contact Info) Description 07/13/2025 Telephone [facility] [place] [address] [place] [address] Davi Sesay, DO [address] [place] [address] appeal decision Social History Tobacco [...] 2:39 PM CDT Spoke to Bri with [facility] department regarding denial received for oxycodone (tracking number [id number]). Per Sarah Tanner WOOD LAST MAKER explained ok for 60 tablets per 15 days since plan only allows 120 tablets per 30 days. Bri stated she submitted medication as stated above and it is covered, and to have pharmacy run medication through. Spoke to staff with [facility] pharmacy explained per Sarah ok for oxycodone 60 tablet per 15 days. Staff voiced understanding. Staff stated patient did already product picker medication with a coupon card. documented in this encounter Plan of Treatment Upcoming Encounters Date Type Department Care Team (Late st Contact Info) Description 07/26/2025 10:35 AM CDT Lab [facility] [address] [phone] Lab, [facility] 07/26/2025 10:45 AM CDT Office Visit [facility] [address] [phone] Davi Sesay, [address] [place] [phone] documented as of this encounter Visit Diagnoses Not on filedocumented in this encounter Additional Health Concerns Assessment Noted Time PHQ-9 Depression Total Score: 19 024 2:33 PM CDT documented as of this encounter Care Teams Joint Machine Operator Relationship Specialty Start Date End Date Yaneth Gage APRN, PIERCE [address] [place] [address] PCP - General Certified Nurse Practitioner 06/30/19 Davi Sesay DO [address] [place] [address] Consulting Physician Oncology 07/05/19 Saira Tejada MD [address] [place] [address] Consulting Physician 09/06/19 documented as of this encounter
--- OUTSIDE RECORDS SUMMARY | 2025-07-13 17:54 | XMS_ITS | Clinical Summary ---
Author Organization [facility] Address [address] [facility] [place] [address] Care Team Providers Care Binding End Stitcher Name Role Phone Daiv Sesay DO Unavailable Saira Tejada MD Unavailable [phone] Juliana, Nohemy Singletary APRN-DE ALCHOLIZER Unavailable [phone] Lina Figueroa LCSW Unavailable Unavailab Luis Rodarte MD Unavailable [phone] Cecy HenriquezD Unavailable Unavaila ble Irene Barton RN Unavailable Unavaila Massiel Adames RN Unavailable Unavailable Nohemy Andrews WARNING COORDINATION METEOROLOGIST-DE ALCHOLIZER Unavailable [phone] Dianna Barbosa APRN-DE ALCHOLIZER Unavailable [phone] Farnaz Arnett RN Unavailable Unavailable Yaneth Gage WARNING COORDINATION [facility] Primary Care Provide r Source Comments [facility],non-owned Affiliates and Associated Physician Practices is amultiple site organization consisting of ambulatory clinics and hospital sitesin [place], [place], [place] and [place]. This disclosure is being madepursuant to the Care Everywhere program and may not contain all information available regarding this patient. Last updated 18.[facility] Allergies Active Allergy Reactions Criticality Noted Date Comments Meloxicam Nausea and/or Vomiting Medium 01/11/2022 Tramadol Itching Medium 01/11/2022 Medications * Be aware that medications may not be up to date on this document. Alwaysverify current medications with the patient. 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 Gender Identity Not on file Sexual Orientation [...] Oxygen Concentration 21% 01/07/2020 1 2:07 AM CAR FERRY CAPTAIN Weight 134.3 kg (296 lb) 09/14/2024 2:21 [...] this topic Medical Devices Implanted Type Area Potato Bucker Device Identifier Shelf Expiration Date Model / Serial / Lot Tray Cath 12fr 19cm Hkmn Trifusion 3 Lum Implanted:Qty: 1 on 12/27/2019 by Ti Woodward MD at [facility] Right: Chest [employer] 06/30/2021 [id number] / / [id number] Procedures Procedure Name Priority Date/Time Associated Diagnosis Comments CREATININE - POCT INTERFACED Routine 09/17/2024 12:17 PM CDT HEMOGLOBIN A1C Routine 01/13/2020 12:34 AM CAR FERRY CAPTAIN HIV-1 HIV-2 ANTIGEN/ANTIBODY Routine 09/20/2019 4:35 PM CDT Multiple myeloma, remission status unspecified from Last 3 Months or Most Recently Relevant to Health Maintenance Results * (ABNORMAL) CREATININE - POCT INTERFACED (09/17/2024 12:17 PM CDT) Creatinine POCT 0.87 0.30 - 1.30 mg/dL 09/17/2024 12:20 PM CDT [facility] eGFR 78(L) >=90 mL/min/1.7 3 m2 09/17/2024 12:20 PM CDT [facility] Blood BLOOD SPECIMEN / Unknown 09/17/2024 12:17 PM CDT 09/17/2024 12:20 PM CDT us Davi Sesay DO LAB - POINT OF CARE ORDERABLES F inal Result [facility] [address] [place] [address], [facility] [phone] * (ABNORMAL) HEMOGLOBIN A1C (01/13/2020 12:34 AM CAR FERRY CAPTAIN) Hemoglobin A1c 6.9(H) 4.4 - 6.3 % 01/13/2020 8:52 AM CAR FERRY CAPTAIN [facility] Estimated Average Glucose 151 mg/dL 01/13/2020 8:52 AM [facility] Comment: HbA1c Interpretation: Treatment target values recommended by ADA and other clinical organizations should be used to evaluate metabolic control in patients. Treatment Target Values: Normal : < 5.7% Pre-diabetes: 5.7-6.4% Diabetes: Equal to or greater than 6.5% Reference: [place] Diabetes Association Standards of Care in Diabetes -2014 In patients 70 years and older consider HbA1c target range of 7.0-7.5% Reference: Diabetes Mellitus in Older People: Position Statement on behalf of the International Association of Gerontology and Geriatrics (IAGG), the Diabetes Working Green Party for Older People (EDWPOP), and the International Task Force of Experts in Diabetes. Stew Figueredo, et al. J [place] Medical Directors Association. 2012 Test results diagnostic of diabetes should be repeated for confirmation. The Sebia Capillary 2 assay for the measurement of HbA1c is a National Glycohemoglobin Standardization Program (NGSP)certified method. Blood BLOOD SPECIMEN / Unknown Venipuncture / Unknown 01/13/2020 12:34 AM CAR FERRY CAPTAIN 01/13/2020 1:33 AM CAR FERRY CAPTAIN us Claudio Snyder WARNING COORDINATION METEOROLOGIST-DE ALCHOLIZER LAB - CHEMISTRY ORDERABL ES Final Result [facility] [address] [place] [address], [facility] [phone] * HIV-1 HIV-2 ANTIGEN/ANTIBODY (09/20/2019 4:35 PM CDT) HIV Antigen/Antibod y 1 & 2 Non-reacti ve Non-react danny 09/20/2019 6:02 PM CDT [facility] Comment: Neither HIV-1 p24 Antigen nor HIV-1/HIV-2 Antibodies are detected. Blood BLOOD SPECIMEN / Unknown Venipuncture / Unknown 09/20/2019 4:35 PM CDT 09/20/2019 5:00 PM CDT us Nohemy Andrews APRN-DE ALCHOLIZER LAB - HEMATOLOGY [place] [address], [facility] [phone] from Last 3 Months or Most Recently Relevant to Health Maintenance Insurance [facility] Advance Directives * Full Code (Latest Code Status on File) Date Activated Date Inactivated Comments 01/03/2020 12:38 AM 01/18/2020 7:18 PM Care Teams Binding End Stitcher Relationship Specialty Start Date End Date Yaneth Gage APRN-DE ALCHOLIZER [address] [place] [address] PCP - General 10/01/22 Davi Sesay DO Hematology and Oncology 09/03/19 Saira Tejada MD [address] [place] [address] Hematology and Oncology 09/03/19 Nohemy Andrews APRN-[facility] [address] [place] [address] Family Medicine 09/03/19 Lina Figueroa, COMPUTER SYSTEMS INTEGRATOR Director Of Business Services 09/03/19 Luis Delaney MD Hematology and Oncology 09/03/19 Cecy Henriquez, PharmD 09/03/19 Irene Barton, RN Registered Nurse 09/20/19 Massiel Troy, RN Registered Nurse 02/27/22 Nohemy Andrews, DAMARIS-DE ALCHOLIZER Family Medicine 02/27/22 Dianna Barbosa APRN-DE ALCHOLIZER [address] [facility] OF HEMATOLOGY [place] [address] Advance Practice Nurse Family Medicine 02/27/22 Farnaz Arnett, RN 02/27/22
--- NOTE | 2025-07-13 18:01 | ED.LOWEXIN ---
HPI - Extremity Injury (Lower) General Chief Complaint: Extremity Injury, Lower Stated Complaint: LLE PAIN Time Seen by Provider: 07/13/25 17:29 History of Present Illness HPI Narrative: This is a 60-year-old female with history of diabetes, hypertension, hyperlipidemia, neuropathy who presents to the ED for neck pain. Patient states that 3 days ago, she had onset of left lateral eye thigh pain that radiates to her buttock. It does not radiate past her knee. Denies any traumas or increased exercise activity. Denies numbness, tingling, fevers, chills, shortness chest pain. Related Data Home Medications ?Medication ?Instructions ?Recorded ?Confirmed ?Last Taken ?Type albuterol sulfate 90 mcg/actuation 2 puff inhalation QID PRN SOB 05/13/20 08/17/24 Unknown History aerosol inhaler atorvastatin 20 mg tablet 20 mg PO DAILY 05/13/20 08/17/24 Unknown History duloxetine 30 mg capsule,delayed 30 mg PO DAILY 05/13/20 08/17/24 Unknown History release ergocalciferol (vitamin D2) 1,250 1,250 mcg PO WEEKLY 05/13/20 08/17/24 Unknown History mcg (50,000 unit) capsule fluticasone propionate 50 2 spray intranasal DAILY 05/13/20 08/17/24 Unknown History mcg/actuation nasal spray,suspension furosemide 40 mg tablet 40 mg PO DAILY 05/13/20 08/17/24 Unknown History gabapentin 300 mg capsule 300 mg PO TID 05/13/20 08/17/24 Unknown History hydralazine 50 mg tablet 50 mg PO DAILY 05/13/20 08/17/24 Unknown History hydrochlorothiazide 25 mg tablet 25 mg PO DAILY 05/13/20 08/17/24 Unknown History lenalidomide 25 mg capsule 25 mg PO DAILY 05/13/20 08/17/24 Unknown History (Revlimid) losartan 100 mg tablet 100 mg PO DAILY 05/13/20 08/17/24 Unknown History metformin 500 mg tablet 500 mg PO BID 05/13/20 08/17/24 Unknown History morphine 30 mg tablet,extended 30 mg PO DAILY 05/13/20 08/17/24 Unknown History release omeprazole 40 mg capsule,delayed 40 mg PO DAILY 05/13/20 08/17/24 Unknown History release ondansetron HCl 4 mg tablet 4 mg PO QID PRN Nausea And Vomiting 05/13/20 08/17/24 Unknown History prochlorperazine maleate 10 mg 10 mg PO DAILY 05/13/20 08/17/24 Unknown History tablet valacyclovir 500 mg tablet 500 mg PO DAILY 05/13/20 08/17/24 Unknown History Allergies Allergy/AdvReac Type Severity Reaction Status Date / Time No Known Allergies Allergy Verified 07/13/25 15:06 Review of Systems Review of Systems: Gen.: Denies fevers or chills Eyes: Denies eye pain or visual change ENT: Denies congestion Respiratory: Denies shortness of breath or cough CV: Denies chest pain or palpitations GI: Denies abdominal pain nausea, emesis or diarrhea denies burning, urgency, frequency or hematuria Musculoskeletal: Denies back pain. Left lateral thigh pain Neuro: Denies numbness, tingling, weakness or focal weakness Skin: Denies rash Except as documented, all other systems reviewed and negative [facility] Social History Social History Smoking status: Current every day smoker Tobacco type: cigarettes Alcohol intake: never Substance use type: marijuana Gender identity (if verbalized by the patient): Female Exam Narrative: APPEARANCE: No acute distress, nontoxic, resting in bed EYES: EOMI HEENT: Normocephalic, atraumatic, OMM RESPIRATORY: No respiratory distress Clear to auscultation bilaterally with no rhonchi wheezing or rales. CARDIOVASCULAR: Regular rate and rhythm without murmurs rubs or gallops. ABDOMINAL: Soft, nontender, nondistended, no rebound or guarding MUSCULOSKELETAl: Tenderness to palpation to the left lateral thigh. Negative Homans sign. Moves all extremities. No clubbing, cyanosis or edema. NEURO: Awake and alert. Following commands, speech normal, no focal deficits SKIN:: Warm, dry. No rashes lesions or abrasions PSYCHIATRIC: Normal affect/mood, Course Vital Signs Vital signs: Vital Signs Temperature 97.4 F L 07/13/25 15:03 Pulse Rate 94 07/13/25 15:03 Respiratory Rate 16 07/13/25 15:03 Blood Pressure 187/103 H 07/13/25 15:03 Pulse Oximetry 98 07/13/25 15:03 Oxygen Delivery Room Air 07/13/25 15:03 Temperature 97.4 F L 07/13/25 15:03 Pulse Rate 94 07/13/25 15:03 Respiratory Rate 16 07/13/25 15:03 Blood Pressure 187/103 H 07/13/25 15:03 Pulse Oximetry 98 07/13/25 15:03 Oxygen Delivery Room Air 07/13/25 15:03 MDM - Extremity Injury (Lower) MDM Narrative Medical decision making narrative: 60-year-old female presenting with left lateral thigh pain. Given location, low suspicion for DVT. On further discussion with patient, she had been leaned over in her wheelchair and was wearing jeans that were rather tight fitting prior to the pain starting. Additionally imaging not indicated at this time. Patient was given Toradol and Flexeril. She had significant improvement of her pain. Suspect that she does have meralgia paresthetica. Patient was educated on weight loss and wearing loose-fitting clothing. Patient was agreeable to plan. Strict return precautions. Differential Diagnosis Differential diagnosis: Likely other (meralgia paresthetica, sciatica, muscle strain) Discharge Plan Discharge Clinical Impression: Meralgia paresthetica of left side Patient Disposition: Home Condition: Stable Instructions: Antibiotic Form Additional Instructions: avoid tight fitting clothing. Follow up with oncologist for further pain management. Patient Language: Greek Prescriptions: No Action furosemide 40 mg tablet 40 mg PO DAILY metformin 500 mg tablet 500 mg PO BID atorvastatin 20 mg tablet 20 mg PO DAILY ondansetron HCl 4 mg tablet 4 mg PO QID PRN (Reason: Nausea And Vomiting) prochlorperazine maleate 10 mg tablet 10 mg PO DAILY valacyclovir 500 mg tablet 500 mg PO DAILY morphine 30 mg tablet extended release 30 mg PO DAILY omeprazole 40 mg capsule,delayed release(DR/EC) 40 mg PO DAILY gabapentin 300 mg capsule 300 mg PO TID hydralazine 50 mg tablet 50 mg PO DAILY hydrochlorothiazide 25 mg tablet 25 mg PO DAILY ergocalciferol (vitamin D2) 1,250 mcg (50,000 unit) capsule 1,250 mcg PO WEEKLY albuterol sulfate 90 mcg/actuation HFA aerosol inhaler 2 puff INHALATION QID PRN (Reason: SOB) losartan 100 mg tablet 100 mg PO DAILY fluticasone propionate 50 mcg/actuation spray,suspension 2 spray INTRANASAL DAILY duloxetine 30 mg capsule,delayed release(DR/EC) 30 mg PO DAILY lenalidomide [Revlimid] 25 mg capsule 25 mg PO DAILY Follow-up/Referrals: PHYSICIAN NOT ON STAFF,NONSTAFF [Primary Care Provider] -
[2025-07-13] MEDS: KETOROLAC 30 MG/ML VIAL (*BKC) IM (18:27)
[2025-07-13] MEDS: CYCLOBENZAPRINE HCL 10 MG TABLET PO (18:27)
== END 2025-07-13 19:21 | disposition home or self-care (01) ==
PROVIDERS: Emergency Provider Student in an Organized Health Care Education/Training Program
DX: G57.12 Meralgia paresthetica, left lower limb (principal); E78.5 Hyperlipidemia, unspecified; I10 Essential (primary) hypertension; E11.40 Type 2 diabetes mellitus with diabetic neuropathy, unspecified; F17.210 Nicotine dependence, cigarettes, uncomplicated
CPT/HCPCS: 96372; 99283; A9270; J1885

== ENCOUNTER 2025-09-05 18:33 | Emergency (ER) | payer OTHER, SELFPAY ==
--- NOTE | 2025-09-05 18:39 | ED.BACK ---
HPI - Back Pain/Injury General Chief Complaint: Back Pain/Injury Stated Complaint: Back Pain Time Seen by Provider: 09/05/25 18:40 Source: patient, RN notes reviewed and old records reviewed Mode of arrival: ambulatory Limitations: no limitations History of Present Illness HPI Narrative: 60-year-old female presents to the [facility] with complaints of back pain that started yesterday. Has a history of back pain. Currently on oxycodone, morphine and gabapentin. Denies any injury. Patient reports that her pain medicine has not helped her. States that she normally has incontinence and wears a depends. Onset (ago): day(s) (1) Related Data Home Medications ?Medication ?Instructions ?Recorded ?Confirmed ?Last Taken ?Type albuterol sulfate 90 mcg/actuation 2 puff inhalation QID PRN SOB 05/13/20 08/17/24 Unknown History aerosol inhaler atorvastatin 20 mg tablet 20 mg PO DAILY 05/13/20 08/17/24 Unknown History duloxetine 30 mg capsule,delayed 30 mg PO DAILY 05/13/20 08/17/24 Unknown History release ergocalciferol (vitamin D2) 1,250 1,250 mcg PO WEEKLY 05/13/20 08/17/24 Unknown History mcg (50,000 unit) capsule fluticasone propionate 50 2 spray intranasal DAILY 05/13/20 08/17/24 Unknown History mcg/actuation nasal spray,suspension furosemide 40 mg tablet 40 mg PO DAILY 05/13/20 08/17/24 Unknown History gabapentin 300 mg capsule 300 mg PO TID 05/13/20 08/17/24 Unknown History hydralazine 50 mg tablet 50 mg PO DAILY 05/13/20 08/17/24 Unknown History hydrochlorothiazide 25 mg tablet 25 mg PO DAILY 05/13/20 08/17/24 Unknown History lenalidomide 25 mg capsule 25 mg PO DAILY 05/13/20 08/17/24 Unknown History (Revlimid) losartan 100 mg tablet 100 mg PO DAILY 05/13/20 08/17/24 Unknown History metformin 500 mg tablet 500 mg PO BID 05/13/20 08/17/24 Unknown History morphine 30 mg tablet,extended 30 mg PO DAILY 05/13/20 08/17/24 Unknown History release omeprazole 40 mg capsule,delayed 40 mg PO DAILY 05/13/20 08/17/24 Unknown History release ondansetron HCl 4 mg tablet 4 mg PO QID PRN Nausea And Vomiting 05/13/20 08/17/24 Unknown History prochlorperazine maleate 10 mg 10 mg PO DAILY 05/13/20 08/17/24 Unknown History tablet valacyclovir 500 mg tablet 500 mg PO DAILY 05/13/20 08/17/24 Unknown History oxycodone 5 mg tablet mg 09/05/25 Unknown History Allergies Allergy/AdvReac Type Severity Reaction Status Date / Time No Known Allergies Allergy Verified 09/05/25 18:47 Review of Systems Review of Systems: All systems reviewed & are unremarkable except as noted in HPI and below Constitutional: Constitutional: Reports no additional constitutional complaints Cardiovascular: Cardiovascular: Reports no additional cardiovascular complaints, Denies chest pain and Denies dyspnea Respiratory: Respiratory: Reports no additional respiratory complaints, Denies chest congestion, Denies cough and Denies dyspnea Gastrointestinal: Gastrointestinal: Reports no additional gastrointestinal complaints Musculoskeletal: Musculoskeletal: Reports as per HPI and Reports back pain (Left lower) Integumentary/Breasts: Skin/Breast: Reports system reviewed and no additional complaints, except as docu PMFSH Social History Social History Smoking status: Current every day smoker Tobacco type: cigarettes Alcohol intake: never Substance use type: marijuana Gender identity (if verbalized by the patient): Female Comments At the time of my signature, I reviewed and agree with the nursing past medical, surgical, social, and family history. There is no relevant family history pertinent to the patient complaint. Exam Const: General: cooperative, no acute distress, well developed, alert, ill appearing chronically, poor hygiene, tired appearing, uncomfortable and well nourished Nutritional Appearance: well nourished Orientation/consciousness: patient oriented x3 Limitations: no limitations HENMT: Head: normal to inspection Eyes: General: appearance normal, both eyes and all related structures Alignment and Position: alignment normal Neck: Neck: normal visual inspection, full ROM, no lymphadenopathy and no meningeal signs Chest: Chest palpation & inspection: normal inspection of the chest Resp: Effort & Inspection: normal respiratory effort and able to speak in complete sentences Cardio: Rate: regular rate Back/Spine/Pelvis: Back: No erythema, No warmth, No ecchymosis and back tenderness (Left lower) Back/spine/pelvis image:  1. Tenderness to palpation without erythema, ecchymosis. No rashes. Skin: General skin exam: normal color and no rashes or lesions noted Neuro: General: patient oriented x3, moves all extremities and no meningeal signs Cognition (Neuro): normal cognition Speech: normal speech Extrem: General: normal to inspection, full ROM, capillary refill normal and normal gait Psych: Appearance: grossly normal and well kempt Mental Status: mental status grossly normal Speech and movement: Normal speech and movement present and Clear speech present Affect: normal affect Attitude: cooperative Course Course Level of Care: Express Care Visit Vital Signs Vital signs: Vital Signs Temperature 98.1 F 09/05/25 18:50 Pulse Rate 89 09/05/25 18:50 Respiratory Rate 16 09/05/25 18:50 Blood Pressure 186/90 H 09/05/25 18:50 Pulse Oximetry 97 09/05/25 18:50 Oxygen Delivery Room Air 09/05/25 18:50 Temperature 98.1 F 09/05/25 18:50 Pulse Rate 89 09/05/25 18:50 Respiratory Rate 16 09/05/25 18:50 Blood Pressure 186/90 H 09/05/25 18:50 Pulse Oximetry 97 09/05/25 18:50 Oxygen Delivery Room Air 09/05/25 18:50 Reviewed Transfer Transfered to: [facility] Transportation: Other (POV, declined EMS) Transfer rationale: Patient with increased back pain, history of chronic back pain. No new injury. Accepting physician: SPoke with Ally NORRIS , DAVON dr given MDM - Back Pain/Injury MDM Narrative Medical decision making narrative: Patient sitting in wheelchair. Pain with movement, acute on chronic pain. Patient reports that her morphine, Oxy and gabapentin do not work. Patient's blood pressure is also elevated. Patient states ?I just want to be pain free. ? No injuries. No midline tenderness. Has a history of incontinence. Urine dip is negative. No culture indicated Due to patient's severe pain sending for higher level of care. Transfer instructions reviewed with patient to go directly to the ER. EMS offered, patient declined. All questions have been answered, and the patient deny any further questions Some parts of this dictation were generated by voice recognition software and may contain typographical and/or grammatical inaccuracies. Differential Diagnosis Differential diagnosis: Likely lumbar radiculopathy, sciatica, strain of lumbar region, pyelonephritis and other Critical Care Time Critical Care Time Critical Care Time: No Discharge Plan Discharge Clinical Impression: Acute left-sided back pain Qualifiers: Back pain location: low back pain Sciatica presence: without sciatica Qualified Code(s): M54.50 - Low back pain, unspecified Patient Disposition: Acute Care Hospital Condition: Stable Patient Language: Yakut Prescriptions: No Action furosemide 40 mg tablet 40 mg PO DAILY metformin 500 mg tablet 500 mg PO BID atorvastatin 20 mg tablet 20 mg PO DAILY ondansetron HCl 4 mg tablet 4 mg PO QID PRN (Reason: Nausea And Vomiting) prochlorperazine maleate 10 mg tablet 10 mg PO DAILY valacyclovir 500 mg tablet 500 mg PO DAILY morphine 30 mg tablet extended release 30 mg PO DAILY omeprazole 40 mg capsule,delayed release(DR/EC) 40 mg PO DAILY gabapentin 300 mg capsule 300 mg PO TID hydralazine 50 mg tablet 50 mg PO DAILY hydrochlorothiazide 25 mg tablet 25 mg PO DAILY ergocalciferol (vitamin D2) 1,250 mcg (50,000 unit) capsule 1,250 mcg PO WEEKLY albuterol sulfate 90 mcg/actuation HFA aerosol inhaler 2 puff INHALATION QID PRN (Reason: SOB) losartan 100 mg tablet 100 mg PO DAILY fluticasone propionate 50 mcg/actuation spray,suspension 2 spray INTRANASAL DAILY duloxetine 30 mg capsule,delayed release(DR/EC) 30 mg PO DAILY lenalidomide [Revlimid] 25 mg capsule 25 mg PO DAILY oxycodone 5 mg tablet Follow-up/Referrals: PHYSICIAN NOT ON STAFF,NONSTAFF [Primary Care Provider]
[2025-09-05 18:50] VITALS: BP 186/90; PULSE 89; RESP 16; TEMP 36.7; O2SAT 97
[2025-09-05 19:23] LABS: EDUAAPPEAR Clear; EDUABILI Negative (Negative); EDUABLOOD Negative (Negative); EDUACOLOR1 Dark; EDUAGLUCOSE Negative (Negative); EDUAKETONE Negative (Negative); EDUALEUKO Negative (Negative); EDUANITRATE Negative (Negative); EDUAPH 5.5; EDUAPROTEIN Negative (Negative); EDUASPGRAVITY 1.025; EDUAUROBILI 0.2
== END 2025-09-05 19:18 | disposition short-term general hospital (02) ==
PROVIDERS: Emergency Provider Nurse Practitioner
DX: M54.50 Low back pain, unspecified (principal); F17.210 Nicotine dependence, cigarettes, uncomplicated; F12.90 Cannabis use, unspecified, uncomplicated; I11.0 Hypertensive heart disease with heart failure; I50.9 Heart failure, unspecified; E78.00 Pure hypercholesterolemia, unspecified; J44.9 Chronic obstructive pulmonary disease, unspecified; K21.9 Gastro-esophageal reflux disease without esophagitis; M19.90 Unspecified osteoarthritis, unspecified site; E11.9 Type 2 diabetes mellitus without complications; Z79.84 Long term (current) use of oral hypoglycemic drugs; Z85.79 Personal history of other malignant neoplasms of lymphoid, hematopoietic and related tissues; Z92.21 Personal history of antineoplastic chemotherapy; Z92.3 Personal history of irradiation; Z94.84 Stem cells transplant status
CPT/HCPCS: 81003; 99212; G0463